=== PATIENT | female | born 1960 | race Caucasian/White ===

== ENCOUNTER 2020-03-21 08:54 | Outpatient (REF) | payer MEDICAID, SELFPAY | END 2020-03-21 08:55 | disposition home or self-care (01) | LOC: HO.LAB 08:54 | PROVIDERS: Visit Provider Internal Medicine | DX: Z20.828 Contact with and (suspected) exposure to other viral communicable diseases (principal) | CPT/HCPCS: U0003 ==

== ENCOUNTER 2020-11-18 08:46 | Outpatient (REF) | payer MEDICAID, SELFPAY ==
--- NOTE | ~2020-11-18 | MM_ITS ---
EXAMINATION: MM SCREENING DIGITAL BREAST TOMOSYNTHESIS, BILATERAL CLINICAL INFORMATION: Screening. Asymptomatic. The lifetime risk of breast cancer based on the Tyrer-Cuzick Model is 12.3%. COMPARISON: Mammography: November 16, 2018 and studies dating back to September 02, 2011 TECHNIQUE: Digital breast tomosynthesis is performed in both the craniocaudal and mediolateral oblique views along with computer-aided detection (CAD). Synthesized 2D images are generated from the tomosynthesis. FINDINGS: The breasts are extremely dense, which lowers the sensitivity of mammography (ACR BI-RADS breast composition Category d). There are no significant masses, abnormal calcifications, or other abnormalities. MM/MM tomosynthesis screening BI IMPRESSION: There are no significant changes from prior study. ASSESSMENT: BI-RADS 1: Negative RECOMMENDATION: Routine annual mammography screening. This patient's information was entered into a reminder system with a target due date for their next mammogram.
== END 2020-11-18 08:47 | disposition home or self-care (01) ==
LOC: HO.MAMMO 08:46
PROVIDERS: Visit Provider General Practice
DX: Z12.31 Encounter for screening mammogram for malignant neoplasm of breast (principal)
CPT/HCPCS: 77063; 77067

== ENCOUNTER 2021-12-01 09:44 | Outpatient (REF) | payer MEDICAID, SELFPAY ==
--- NOTE | ~2021-12-01 | MM_ITS ---
EXAMINATION: MM SCREENING DIGITAL BREAST TOMOSYNTHESIS, BILATERAL CLINICAL INFORMATION: Screening. Asymptomatic. Family history breast cancer, sister. The lifetime risk of breast cancer based on the Tyrer-Cuzick Model is 12%. COMPARISON: Mammography: 11/18/2020, 11/16/2018, 10/12/2017 TECHNIQUE: Digital breast tomosynthesis is performed in both the craniocaudal and mediolateral oblique views along with computer-aided detection (CAD). Synthesized 2D images are generated from the tomosynthesis. FINDINGS: The breasts are heterogeneously dense, which may obscure small masses (ACR BI-RADS breast composition Category c). There are no significant masses, abnormal calcifications, or other abnormalities. Parenchymal pattern is similar to prior studies. No developing density or architectural abnormality. The axilla and skin contours are unremarkable. MM/MM tomosynthesis screening BI IMPRESSION: No significant changes from prior exams. ASSESSMENT: BI-RADS 1: Negative RECOMMENDATION: Routine annual mammography screening. This patient's information was entered into a reminder system with a target due date for their next mammogram.
== END 2021-12-01 09:45 | disposition home or self-care (01) ==
LOC: HO.MAMMO 09:44
PROVIDERS: Visit Provider General Practice
DX: Z12.31 Encounter for screening mammogram for malignant neoplasm of breast (principal)
CPT/HCPCS: 77063; 77067

== ENCOUNTER 2022-03-09 07:19 | Emergency (ER) | payer MEDICAID, SELFPAY ==
--- NOTE | ~2022-03-09 | XR_ITS ---
EXAMINATION: XR CHEST CLINICAL INFORMATION: Vomiting, nausea, chest pain. Syncope. COMPARISON: 04/25/2018 TECHNIQUE: Frontal view of the chest was obtained. FINDINGS: Cardiac leads overlie the chest. The lungs are well expanded. There is no focal consolidation, edema, or effusion. No pneumothorax. The cardiomediastinal silhouette is within normal limits. No acute osseous abnormality. XR/XR chest 1V IMPRESSION: No acute pulmonary disease.
--- NOTE | 2022-03-09 07:50 | ECG_ITS ---
Test Reason : syncope Blood Pressure : / mmHG Vent. Rate : 062 BPM Atrial Rate : 062 BPM P-R Int : 152 ms QRS Dur : 086 ms QT Int : 408 ms P-R-T Axes : 033 -11 -05 degrees QTc Int : 414 ms Normal sinus rhythm Minimal voltage criteria for LVH, may be normal variant ( R in aVL ) T wave abnormality, consider anterior ischemia Abnormal ECG When compared with ECG of 06-APR-2018 11:05, No significant change was found Referred By: Edgar Somers Electronically Signed By:YASHIRA REZA MD
--- NOTE | 2022-03-09 07:53 | ED.NAVMDI ---
HPI - Nausea/Vomiting/Diarrhea General Chief complaint: Nausea/Vomiting/Diarrhea Stated complaint: vomiting Time Seen by Provider: 03/09/22 07:28 Source: patient Mode of arrival: ambulatory Limitations: language barrier (Portuguese speaking only, electronic video games servicer used) History of Present Illness HPI Narrative: 61-year-old female who presents emergency department for evaluation of nausea, vomiting, diarrhea and weakness. The patient states she has had nausea and vomiting for approximately 1 week. She states she vomits 2-3 times per day. She denies any blood in the emesis. She states that she has had very little food and fluid intake secondary to her nausea and vomiting. She states that over the last 2 days she has developed diarrhea. She states she has had 2-3 watery stools per day with no blood in the stools. She was feeling very weak, lightheaded and dizzy. While she was in the waiting room she had a syncopal episode. She was brought back to a stretcher and evaluated. The patient got off the stretcher to try to give a urine sample and had a syncopal episode your in the emergency department while she was being assisted to the bathroom. She was lying on the floor and was diaphoretic, she was minimally responsive, this lasted for approximately 1 minute. She then woke up in we lifted her back onto the stretcher. She denied fever, chills, rhinorrhea, sore throat, cough, chest pain, shortness of breath or dyspnea on exertion. She denied abdominal pain, myalgias arthralgias. MD elicited complaint: nausea, vomiting and diarrhea Onset (ago): week(s) (1) Description of vomiting: watery Description of diarrhea: watery Associated nausea: Yes Associated abdominal pain: No Location of pain: none Related Data Allergies Allergy/AdvReac Type Severity Reaction Status Date / Time No Known Allergies Allergy Verified 03/09/22 07:58 Review of Systems Review of Systems: Yes all other systems are reviewed and are negative Gastrointestinal: Gastrointestinal: Reports nausea PMFSH Past Medical History PMFSH Narrative: Past medical history: Diabetes mellitus, hypertension, hyperlipidemia. Patient states she has received 2 Pfizer COVID-19 vaccinations but did not receive her booster shot. Social history: She denies tobacco use, alcohol use and drug use. Social History Social History Advance Directives: No Physical Exam Vital Signs: Vital Signs: Last Vital Signs Temp 98.5 F 03/09/22 07:59 Pulse 65 03/09/22 10:51 Resp 18 03/09/22 10:51 BP 145/66 H 03/09/22 10:51 Pulse Ox 100 03/09/22 10:51 O2 Del Method 03/09/22 10:51 BMI result Body Mass Index 32.3 Const: General: cooperative and no acute distress Orientation/consciousness: oriented to person and oriented to place Limitations: no limitations HEENT: Head: Yes normal to inspection, Yes normocephalic and Yes atraumatic Ears: external ears normal General nose exam: Normal external nose present Face and sinus: Yes normal facial exam Mouth: Normal oral and palatal mucosa present Throat: Yes posterior oropharynx normal Eyes: General: appearance normal, both eyes and all related structures Pupils: Equal, round and reactive pupils present Neck: Neck: Yes normal visual inspection, Yes no lymphadenopathy, Yes trachea midline and Yes supple Chest: Chest palpation & inspection: normal inspection of the chest and normal palpation of entire chest wall Resp: Effort & Inspection: normal respiratory effort and able to speak in complete sentences Auscultation: clear to auscultation bilaterally Cardio: Rate: regular rate Rhythm: regular rhythm Heart sounds: S1 normal heart sound present, S2 normal heart sound present and no murmurs GI: Inspection: Yes normal to inspection Palpation (GI): Soft to palpation, nontender and no guarding Auscultation: normal bowel sounds : General: Yes no CVA tenderness Back/Spine/Pelvis: Back: no CVA tenderness Skin: General skin exam: no rashes or lesions noted Neuro: General: oriented to person and oriented to place Cranial nerves: Yes CN's II-XII intact bilaterally and Yes Equal, round and reactive pupils present Cognition (Neuro): normal cognition Motor exam (neuro): 5/5 motor strength present throughout Extrem: General: Yes normal to inspection Psych: Appearance: grossly normal Speech and movement: Normal speech and movement present Affect: normal affect Attitude: cooperative Thought process: Normal thought process present Thought content: Normal thought content present Course Course Course Narrative: 61-year-old female who presents emergency department for evaluation of 1 week of nausea and vomiting and 2 days of diarrhea. Patient has had very little food and fluid to drink over the last week and she is feeling weak, lightheaded and dizzy. Patient had a syncopal episode in the emergency department waiting area and a 2nd syncopal episode here in emergency department when she tried to get off the stretcher to go to the bathroom. The patient's physical examination was unremarkable she has no abdominal tenderness. Patient most likely has a viral illness. I did order a CBC, CMP, lactate, lipase, PT/INR, PTT, COVID-19, influenza. If we obtain a stool sample also check her for C difficile infection. Patient was ordered to get Zofran 4 mg IV and normal saline IV x1 L. 1258: Laboratory evaluation: CBC was normal. Glucose elevated 178. Troponin below detectable limits. COVID-19 and influenza negative. Lipase elevated 135. Radiology evaluation: Chest x-ray no acute disease The patient's syncopal episode was most likely vagal vagal secondary to being dehydrated/volume depleted caused by her vomiting, diarrhea and lack of oral intake. The patient is feeling significantly better. She was able to drink fluid any eat. The patient will be discharged home. She most likely has a viral infection causing her symptoms I did discuss this with her. She was given printed and verbal instructions and discharged home. She was prescribed Zofran ODT. MDM - Nausea/Vomiting/Diarrhea Lab Data Attestation: I reviewed the patient's lab results. Result diagrams: 03/09/22 10:05 03/09/22 10:05 Labs: Lab Results 03/09/22 03/09/22 03/09/22 Range/Units 10:05 10:05 10:05 WBC 10.7 (4.8-10.8) X10*3/uL RBC 4.22 (4.20-5.50) X10*6/uL Hgb 12.4 (12.0-16.0) g/dl Hct 38.1 (37.0-47.0) % MCV 90.3 (80.0-98.0) fL MCH 29.4 (27.0-33.0) pg MCHC 32.5 (31.0-35.0) g/dl RDW 12.7 (11.0-16.0) % Plt Count 268 (160-400) X10*3/uL MPV 10.8 (9.4-12.3) fL Immature Gran % (Auto) 0.3 (0.0-0.4) % Neut % (Auto) 72.5 (45-73) % Lymph % (Auto) 21.2 (20-40) % Isabela % (Auto) 5.1 (2-11) % Eos % (Auto) 0.6 (0-4) % Baso % (Auto) 0.3 (0-2) % Lymph # (Auto) 2.3 (1.2-4.9) X10*3/uL Isabela # (Auto) 0.6 (0.1-1.2) X10*3/uL Eos # (Auto) 0.1 (0.0-0.4) X10*3/uL Baso # (Auto) 0.0 (0.0-0.2) X10*3/uL Abs Immat Gran (auto) 0.03 (0.00-0.03) X10*3/uL Absolute Neuts (auto) 7.8 (2.0-8.3) x10*3/uL Absolute Nucleated RBC 0.000 (0.0-0.012) X10*3/uL Nucleated RBC % (auto) 0.0 (0.0-0.2) /100WBC PT (10.0-13.1) SEC INR (0.9-1.1) APTT (26.0-36.4) SEC Sodium 142 (135-145) mmol/L Potassium 4.2 (3.3-5.1) mmol/L Chloride 105 (96-108) mmol/L Carbon Dioxide 25 (22-29) mmol/L Anion Gap 16 (12-20) BUN 9 (9-16) mg/dL Creatinine 0.71 (0.5-1.4) mg/dL Estim Creat Clear Calc 81.6 Estimated GFR > 60 Random Glucose 178 H (60-115) mg/dL Lactic Acid 1.5 (0.5-2.0) mmol/L Calcium 9.3 (8.4-10.2) mg/dL Total Bilirubin 0.3 (0.0-1.0) mg/dL AST 18 (5-31) U/L ALT 18 (0-31) U/L Alkaline Phosphatase 102 (39-117) U/L Troponin I High Sens (<3.5-17.0) ng/L Total Protein 7.1 (6.5-8.0) g/dL Albumin 4.2 (3.5-5.0) g/dL Lipase 135 H (8-78) U/L Urine Color Urine Appearance Urine pH (5.0-9.0) Ur Specific [place] (1.005-1.025) Urine Protein (Neg-Trace) mg/dL Urine Glucose (UA) (Negative) mg/dL Urine Ketones (Negative) mg/dL Urine Blood (Negative) Urine Nitrite (Negative) Ur Leukocyte Esterase (Negative) COVID-19 ([facility]) (Negative) COVID-19 Clin Com Influenza Type A (CASE) (Negative) Influenza Type B (CASE) (Negative) Influenza A & B Note 03/09/22 03/09/22 03/09/22 Range/Units 10:05 10:05 10:05 WBC (4.8-10.8) X10*3/uL RBC (4.20-5.50) X10*6/uL Hgb (12.0-16.0) g/dl Hct (37.0-47.0) % MCV (80.0-98.0) fL MCH (27.0-33.0) pg MCHC (31.0-35.0) g/dl RDW (11.0-16.0) % Plt Count (160-400) X10*3/uL MPV (9.4-12.3) fL Immature Gran % (Auto) (0.0-0.4) % Neut % (Auto) (45-73) % Lymph % (Auto) (20-40) % Isabela % (Auto) (2-11) % Eos % (Auto) (0-4) % Baso % (Auto) (0-2) % Lymph # (Auto) (1.2-4.9) X10*3/uL Isabela # (Auto) (0.1-1.2) X10*3/uL Eos # (Auto) (0.0-0.4) X10*3/uL Baso # (Auto) (0.0-0.2) X10*3/uL Abs Immat Gran (auto) (0.00-0.03) X10*3/uL Absolute Neuts (auto) (2.0-8.3) x10*3/uL Absolute Nucleated RBC (0.0-0.012) X10*3/uL Nucleated RBC % (auto) (0.0-0.2) /100WBC PT 12.3 (10.0-13.1) SEC INR 1.1 (0.9-1.1) APTT 37.9 H (26.0-36.4) SEC Sodium (135-145) mmol/L Potassium (3.3-5.1) mmol/L Chloride (96-108) mmol/L Carbon Dioxide (22-29) mmol/L Anion Gap (12-20) BUN (9-16) mg/dL Creatinine (0.5-1.4) mg/dL Estim Creat Clear Calc Estimated GFR Random Glucose (60-115) mg/dL Lactic Acid (0.5-2.0) mmol/L Calcium (8.4-10.2) mg/dL Total Bilirubin (0.0-1.0) mg/dL AST (5-31) U/L ALT (0-31) U/L Alkaline Phosphatase (39-117) U/L Troponin I High Sens (<3.5-17.0) ng/L Total Protein (6.5-8.0) g/dL Albumin (3.5-5.0) g/dL Lipase (8-78) U/L Urine Color Urine Appearance Urine pH (5.0-9.0) Ur Specific [place] (1.005-1.025) Urine Protein (Neg-Trace) mg/dL Urine Glucose (UA) (Negative) mg/dL Urine Ketones (Negative) mg/dL Urine Blood (Negative) Urine Nitrite (Negative) Ur Leukocyte Esterase (Negative) COVID-19 ([facility]ASIA) Negative (Negative) COVID-19 Clin Com See Note Influenza Type A (CASE) Negative (Negative) Influenza Type B (CASE) Negative (Negative) Influenza A & B Note See Note 03/09/22 03/09/22 Range/Units 10:05 11:59 WBC (4.8-10.8) X10*3/uL RBC (4.20-5.50) X10*6/uL Hgb (12.0-16.0) g/dl Hct (37.0-47.0) % MCV (80.0-98.0) fL MCH (27.0-33.0) pg MCHC (31.0-35.0) g/dl RDW (11.0-16.0) % Plt Count (160-400) X10*3/uL MPV (9.4-12.3) fL Immature Gran % (Auto) (0.0-0.4) % Neut % (Auto) (45-73) % Lymph % (Auto) (20-40) % Isabela % (Auto) (2-11) % Eos % (Auto) (0-4) % Baso % (Auto) (0-2) % Lymph # (Auto) (1.2-4.9) X10*3/uL Isabela # (Auto) (0.1-1.2) X10*3/uL Eos # (Auto) (0.0-0.4) X10*3/uL Baso # (Auto) (0.0-0.2) X10*3/uL Abs Immat Gran (auto) (0.00-0.03) X10*3/uL Absolute Neuts (auto) (2.0-8.3) x10*3/uL Absolute Nucleated RBC (0.0-0.012) X10*3/uL Nucleated RBC % (auto) (0.0-0.2) /100WBC PT (10.0-13.1) SEC INR (0.9-1.1) APTT (26.0-36.4) SEC Sodium (135-145) mmol/L Potassium (3.3-5.1) mmol/L Chloride (96-108) mmol/L Carbon Dioxide (22-29) mmol/L Anion Gap (12-20) BUN (9-16) mg/dL Creatinine (0.5-1.4) mg/dL Estim Creat Clear Calc Estimated GFR Random Glucose (60-115) mg/dL Lactic Acid (0.5-2.0) mmol/L Calcium (8.4-10.2) mg/dL Total Bilirubin (0.0-1.0) mg/dL AST (5-31) U/L ALT (0-31) U/L Alkaline Phosphatase (39-117) U/L Troponin I High Sens < 3.5 (<3.5-17.0) ng/L Total Protein (6.5-8.0) g/dL Albumin (3.5-5.0) g/dL Lipase (8-78) U/L Urine Color Yellow Urine Appearance Clear Urine pH 8.0 (5.0-9.0) Ur Specific [place] 1.010 (1.005-1.025) Urine Protein Negative (Neg-Trace) mg/dL Urine Glucose (UA) Negative (Negative) mg/dL Urine Ketones Negative (Negative) mg/dL Urine Blood Negative (Negative) Urine Nitrite Negative (Negative) Ur Leukocyte Esterase Negative (Negative) COVID-19 ([facility]ASIA) (Negative) COVID-19 Clin Com Influenza Type A (CASE) (Negative) Influenza Type B (CASE) (Negative) Influenza A & B Note ECG Data Attestation: I personally reviewed and interpreted this ECG as follows: Interpretation: 0823: Normal sinus rhythm rate of 62, normal [place] interval, QRS duration QTC interval, inverted T-wave in lead 3, the 1 through V3, no ST segment elevation, no ST segment depression, no PACs, no PVCs, no Q-waves. There is no old EKG for comparison. Discharge Plan Discharge Clinical Impression: Viral syndrome, Syncope, vasovagal, Vomiting, Diarrhea
[2022-03-09 07:59] VITALS: BP 163/77; PULSE 71; RESP 16; TEMP 36.9; O2SAT 100; BMI 32.3
[2022-03-09] MEDS: 0.9 % Sodium Chloride 1,000 ML 999 ML IV (09:10)
[2022-03-09] MEDS: ondansetron HCL 4 MG/2 ML VIAL IVPUSH (09:15)
--- NOTE | 2022-03-09 09:22 | PC.NURSE ---
at approximatly 7:55am patient requesting to go to the bathroom to void, at bedside and stated she was able to ambulate without issues. I attempted to assist the patient. Patient was sat on the edge of the bed and dangled prior to getting up. As soon as we stood, she became weak, knees buckled and we lowered her to the ground with a pillow to support her head. No injury, present. Patient was lifted to the stretcher by multiple staff members, placed on a registered nurse cardiac, subsequently she had an IV placed with fluid bolus in progress. Interpretor used for assessment. Patient denies abd pain, has some nausea but only a slight amount, she is not vomiting at this time, I did medicate her with zofran 4mg IVP as ordered with good effect. Awaiting provider brittany.
[2022-03-09 10:14] LABS: MANUAL DIFF FLAG NO
[2022-03-09 10:15] LABS: Basophils Percent Auto 0.3 % (0-2); Eosinophils Absolute Auto 0.1 X10*3/uL (0.0-0.4); Eosinophils Percent Auto 0.6 % (0-4); Hematocrit 38.1 % (37.0-47.0); Hemoglobin 12.4 g/dl (12.0-16.0); Imm Gran Abs Auto 0.03 X10*3/uL (0.00-0.03); Imm Gran Pct Auto 0.3 % (0.0-0.4); Lymphocytes Absolute Auto 2.3 X10*3/uL (1.2-4.9); Lymphocytes Percent Auto 21.2 % (20-40); Mean Corpuscular HGB Conc 32.5 g/dl (31.0-35.0); Mean Corpuscular Hemoglobin 29.4 pg (27.0-33.0); Mean Corpuscular Volume 90.3 fL (80.0-98.0); Mean Platelet Volume 10.8 fL (9.4-12.3); Monocytes Absolute Auto 0.6 X10*3/uL (0.1-1.2); Monocytes Percent Auto 5.1 % (2-11); Neutrophils Absolute Auto 7.8 x10*3/uL (2.0-8.3); Neutrophils Percent Auto 72.5 % (45-73); Platelet Count 268 X10*3/uL (160-400); Red Blood Count 4.22 X10*6/uL (4.20-5.50); Red Cell Distribution Width 12.7 % (11.0-16.0); White Blood Count 10.7 X10*3/uL (4.8-10.8)
[2022-03-09 10:20] LABS: INTERNATIONAL NORM RATIO 1.1 (0.9-1.1); Prothrombin Time 12.3 SEC (10.0-13.1)
[2022-03-09 10:22] LABS: Partial Thromboplastin Time 37.9 SEC (26.0-36.4)
[2022-03-09 10:24] LABS: Lactic Acid 1.5 mmol/L (0.5-2.0)
[2022-03-09 10:32] LABS: Alanine Aminotransferase 18 U/L (0-31); Albumin Level 4.2 g/dL (3.5-5.0); Alkaline Phosphatase 102 U/L (39-117); Anion Gap 16 (12-20); Aspartate Amino Transferase 18 U/L (5-31); Bilirubin Total 0.3 mg/dL (0.0-1.0); Blood Urea Nitrogen 9 mg/dL (9-16); Calcium 9.3 mg/dL (8.4-10.2); Carbon Dioxide 25 mmol/L (22-29); Chloride 105 mmol/L (96-108); Creatinine Clr Calc Pharmacy 81.6; Estimated Glomerular Filt Rate > 60; Glucose Random 178 mg/dL (60-115); Lipase 135 U/L (8-78); Potassium 4.2 mmol/L (3.3-5.1); Sodium 142 mmol/L (135-145); Total Protein 7.1 g/dL (6.5-8.0)
[2022-03-09 10:34] LABS: COVID-19 Test Negative (Negative); IDNOW Serial# 16C4AD1C; IDNOW Serial# 9DB6401D; Influenza A Negative (Negative); Influenza B2 Negative (Negative); Troponin-I High Sensitivity < 3.5 ng/L (<3.5-17.0)
[2022-03-09 10:51] VITALS: BP 145/66; PULSE 65; RESP 18; O2SAT 100
[2022-03-09 12:25] LABS: Appearance Urine Clear; Color Urine Yellow; Glucose Urine UA Negative (Negative); Leukocyte Esterase Urine Negative (Negative); Nitrite Urine Negative (Negative); Urine Blood Negative (Negative); Urine Ketones Negative (Negative); Urine Protein Negative (Neg-Trace)
--- NOTE | 2022-03-09 13:09 | PC.NURSE ---
pt able to tolerate a few packages of salines, as well as a can of gingerale. She ambulated without difficulty around the department, no complains of dizziness, gait was steady. pt sts nausea has resolved, notified
== END 2022-03-09 13:50 | disposition home or self-care (01) ==
PROVIDERS: Emergency Provider Emergency Medicine Emergency Medical Services; PCP General Practice
DX: B34.9 Viral infection, unspecified (principal); R55 Syncope and collapse; R11.2 Nausea with vomiting, unspecified; R19.7 Diarrhea, unspecified; Z20.822 Contact with and (suspected) exposure to COVID-19; E11.9 Type 2 diabetes mellitus without complications; I10 Essential (primary) hypertension; E78.5 Hyperlipidemia, unspecified
CPT/HCPCS: 36415; 71045; 80053; 81003; 83605; 83690; 84484; 85025; 85610; 85730; 87502; 87635; 93005; 96361; 96374; 99284; J2405

== ENCOUNTER 2022-03-20 08:18 | Emergency (ER) | payer MEDICAID, SELFPAY ==
--- NOTE | ~2022-03-20 | CT_ITS ---
EXAMINATION: CT ABDOMEN AND PELVIS WITHOUT CONTRAST CLINICAL INFORMATION: Abdominal pain COMPARISON: CT 06/30/2010 TECHNIQUE: Multidetector volumetric imaging was performed from the superior aspect of the liver through the pubic symphysis. Sagittal and coronal reformatted images were obtained on the technologist's workstation. This CT examination was performed using dose optimization techniques as appropriate, variously including the following: *Automated exposure control *Adjustment of mA and/or kV according to patient size (this includes techniques or standardized protocols for targeted exams where dose is matched to indication/reason for exam; i.e. extremities or head) *Use of iterative reconstruction technique DLP: 651 mGy-cm FINDINGS: LUNG BASES: The visualized lung bases are unremarkable. LIVER, GALLBLADDER, AND BILIARY TREE: 2 small hypodense lesions in the left lobe, too small to characterize, relatively stable from 06/30/2010, suggesting a nonaggressive etiology. No biliary duct dilatation. The gallbladder is unremarkable with no evidence of radiopaque gallstones, gallbladder wall thickening, or obvious pericholecystic inflammatory changes. PANCREAS: Mild fatty change in the pancreas. No acute inflammatory changes. SPLEEN: Unremarkable. ADRENAL GLANDS: Unremarkable. KIDNEYS AND URETERS: 3 cm right renal cyst, slightly larger from the prior study. Punctate nonobstructing left renal upper pole calculus. No ureteral calculi. No hydronephrosis. . BLADDER: Unremarkable. GASTROINTESTINAL TRACT: The small and large bowel are unremarkable. Nonobstructive bowel gas pattern. Moderate volume stool in the large colon. The appendix is unremarkable. No significant free fluid. ABDOMINAL WALL: No significant hernia is appreciated. LYMPH NODES: No adenopathy seen. VASCULAR: Normal caliber aorta. PELVIC VISCERA: Limited evaluation of the uterus. Uterus is somewhat bulky. No adnexal masses seen. OSSEOUS STRUCTURES: Degenerative changes in the spine. No acute findings seen. CT/CT abdomen pelvis wo IV con IMPRESSION: -Stable 2 small hypodense liver lesions, too small to characterize, probably reflecting cysts. -Right renal 3 cm cyst, slightly larger from previous. -Somewhat bulky appearance of the uterus. This can be further evaluated with nonemergent ultrasound. -No acute intra-abdominal process is otherwise identified.. Fleischner guidelines were followed.
[2022-03-20 08:25] VITALS: BP 157/65; PULSE 75; RESP 14; TEMP 36.8; O2SAT 100
--- NOTE | 2022-03-20 08:26 | ECG_ITS ---
Test Reason : CHEST PAIN Blood Pressure : / mmHG Vent. Rate : 067 BPM Atrial Rate : 067 BPM P-R Int : 140 ms QRS Dur : 084 ms QT Int : 410 ms P-R-T Axes : 054 -05 012 degrees QTc Int : 433 ms Normal sinus rhythm with Sinus Arrhythmia T wave abnormality, consider anterior ischemia Abnormal ECG When compared with ECG of 09-MAR-2022 08:23, No significant change was found Referred By: Ian Vaughn Electronically Signed By:YASHIRA REZA MD
--- NOTE | 2022-03-20 08:29 | ED.NAVMDI ---
HPI - Nausea/Vomiting/Diarrhea General Chief complaint: General Medical Stated complaint: Nausea/ vomiting weakness Time Seen by Provider: 03/20/22 08:19 Source: patient and EMS Mode of arrival: EMS Limitations: no limitations History of Present Illness HPI Narrative: This is 62 years old female presented to the emergency department via ambulance with a chief complaint of nausea vomiting since yesterday. She was evaluated on March 09 in this emergency department with diarrhea with negative workup. She has history of diabetes, asthma, depression MD elicited complaint: nausea, vomiting and diarrhea Onset (ago): day(s) (1) Description of vomiting: watery Associated nausea: Yes Associated abdominal pain: No Exacerbating factors: none Relieving factors: none Related Data Previous Rx's Medication Instructions Recorded ondansetron 4 mg disintegrating 4 mg PO Q6-8H PRN nausea and 03/09/22 tablet vomiting #14 tabs Allergies Allergy/AdvReac Type Severity Reaction Status Date / Time No Known Allergies Allergy Verified 03/09/22 07:58 Review of Systems Review of Systems: Yes all other systems are reviewed and are negative Constitutional: Constitutional: Reports no additional constitutional complaints Cardiovascular: Cardiovascular: Reports no additional cardiovascular complaints Gastrointestinal: Gastrointestinal: Reports nausea and Reports vomiting Neurologic: Reports system reviewed and no additional complaints, except as documented [facility] Past Medical History [facility] Narrative: diabetes/asthma/depression Social History Social History Alcohol intake: former Patient Tobacco Use Status: Never used Tobacco Advance Directives: No Advance Directives Information Provided: Yes Patient : No Physical Exam Vital Signs: Vital Signs: Last Vital Signs Temp 97.8 F 03/20/22 08:36 Pulse 66 03/20/22 08:36 Resp 16 03/20/22 08:36 BP 157/65 H 03/20/22 08:36 Pulse Ox 100 03/20/22 08:36 O2 Del Method 03/20/22 08:36 BMI result Body Mass Index 35.2 Const: General: cooperative, well developed and anxious Orientation/consciousness: patient oriented x3 HEENT: Head: Yes normal to inspection General nose exam: Normal external nose present Mouth: Normal oral and palatal mucosa present Throat: Yes posterior oropharynx normal Neck: Neck: Yes normal visual inspection and Yes full ROM Chest: Chest palpation & inspection: normal inspection of the chest Resp: Effort & Inspection: normal respiratory effort Auscultation: clear to auscultation bilaterally Cardio: Jugular venous distension: no JVD Rate: regular rate Rhythm: regular rhythm GI: Inspection: Yes normal to inspection Palpation (GI): Soft to palpation, not firm, nontender and no guarding Auscultation: normal bowel sounds Skin: General skin exam: no rashes or lesions noted and elasticity normal Lesions: no lesions Rashes: no rashes Neuro: General: patient oriented x3 Course Reevaluation(s) Reevaluation #1: feels better ,asymptomatic,ct scan negative,will d/c home Time: 11:26 [facility] - Nausea/Vomiting/Diarrhea Medical Records Medical records narrative: 62 years old the female diabetic presented with nausea vomiting since yesterday, will insert IV will give IV fluid antiemetic, rear valve after Lab Data Result diagrams: 03/20/22 09:05 03/20/22 09:05 Labs: Lab Results 03/20/22 03/20/22 03/20/22 Range/Units 09:05 09:05 09:05 WBC 10.3 (4.8-10.8) X10*3/uL RBC 4.48 (4.20-5.50) X10*6/uL Hgb 13.1 (12.0-16.0) g/dl Hct 39.9 (37.0-47.0) % MCV 89.1 (80.0-98.0) fL MCH 29.2 (27.0-33.0) pg MCHC 32.8 (31.0-35.0) g/dl RDW 12.7 (11.0-16.0) % Plt Count 305 (160-400) X10*3/uL MPV 11.1 (9.4-12.3) fL Immature Gran % (Auto) 0.3 (0.0-0.4) % Neut % (Auto) 75.5 H (45-73) % Lymph % (Auto) 17.8 L (20-40) % [place] % (Auto) 4.9 (2-11) % Eos % (Auto) 1.1 (0-4) % Baso % (Auto) 0.4 (0-2) % Lymph # (Auto) 1.8 (1.2-4.9) X10*3/uL [place] # (Auto) 0.5 (0.1-1.2) X10*3/uL Eos # (Auto) 0.1 (0.0-0.4) X10*3/uL Baso # (Auto) 0.0 (0.0-0.2) X10*3/uL Abs Immat Gran (auto) 0.03 (0.00-0.03) X10*3/uL Absolute Neuts (auto) 7.8 (2.0-8.3) x10*3/uL Absolute Nucleated RBC 0.000 (0.0-0.012) X10*3/uL Nucleated RBC % (auto) 0.0 (0.0-0.2) /100WBC Sodium 140 (135-145) mmol/L Potassium 4.4 (3.3-5.1) mmol/L Chloride 100 (96-108) mmol/L Carbon Dioxide 27 (22-29) mmol/L Anion Gap 17 (12-20) BUN 8 L (9-16) mg/dL Creatinine 0.70 (0.5-1.4) mg/dL Estim Creat Clear Calc 78.8 Estimated GFR > 60 Random Glucose 210 H (60-115) mg/dL Calcium 10.1 D (8.4-10.2) mg/dL Total Bilirubin 0.3 (0.0-1.0) mg/dL AST 32 H D (5-31) U/L ALT 26 (0-31) U/L Alkaline Phosphatase 103 (39-117) U/L Troponin I High Sens < 3.5 (<3.5-17.0) ng/L Total Protein 7.9 (6.5-8.0) g/dL Albumin 4.5 (3.5-5.0) g/dL Lipase 211 H (8-78) U/L Urine Color Urine Appearance Urine pH (5.0-9.0) Ur Specific [place] (1.005-1.025) Urine Protein (Neg-Trace) mg/dL Urine Glucose (UA) (Negative) mg/dL Urine Ketones (Negative) mg/dL Urine Blood (Negative) Urine Nitrite (Negative) Ur Leukocyte Esterase (Negative) Urine RBC (0-2) /HPF Urine WBC (0-5) /HPF Urine WBC Clumps Ur Squamous Epith Cells (0-2) /HPF Ur Transition Epith Cell Ur Renal Epithelial Cell Calcium Oxalate Crystal Leucine Crystals Cystine Crystals Tyrosine Crystals Other Crystals Urine Bacteria (None Seen) Urine Parasites Bilirubin Casts Epithelial Casts Fatty Casts Hyaline Casts (0-2) /LPF Granular Casts Waxy Casts Broad Casts RBC Casts WBC Casts Other Casts Urine Trichomonas Urine Yeast Stool Leukocytes, Qual (NEGATIVE) 03/20/22 03/20/22 03/20/22 Range/Units 09:05 09:05 09:05 WBC (4.8-10.8) X10*3/uL RBC (4.20-5.50) X10*6/uL Hgb (12.0-16.0) g/dl Hct (37.0-47.0) % MCV (80.0-98.0) fL MCH (27.0-33.0) pg MCHC (31.0-35.0) g/dl RDW (11.0-16.0) % Plt Count (160-400) X10*3/uL MPV (9.4-12.3) fL Immature Gran % (Auto) (0.0-0.4) % Neut % (Auto) (45-73) % Lymph % (Auto) (20-40) % [place] % (Auto) (2-11) % Eos % (Auto) (0-4) % Baso % (Auto) (0-2) % Lymph # (Auto) (1.2-4.9) X10*3/uL [place] # (Auto) (0.1-1.2) X10*3/uL Eos # (Auto) (0.0-0.4) X10*3/uL Baso # (Auto) (0.0-0.2) X10*3/uL Abs Immat Gran (auto) (0.00-0.03) X10*3/uL Absolute Neuts (auto) (2.0-8.3) x10*3/uL Absolute Nucleated RBC (0.0-0.012) X10*3/uL Nucleated RBC % (auto) (0.0-0.2) /100WBC Sodium (135-145) mmol/L Potassium (3.3-5.1) mmol/L Chloride (96-108) mmol/L Carbon Dioxide (22-29) mmol/L Anion Gap (12-20) BUN (9-16) mg/dL Creatinine (0.5-1.4) mg/dL Estim Creat Clear Calc Estimated GFR Random Glucose (60-115) mg/dL Calcium (8.4-10.2) mg/dL Total Bilirubin (0.0-1.0) mg/dL AST (5-31) U/L ALT (0-31) U/L Alkaline Phosphatase (39-117) U/L Troponin I High Sens (<3.5-17.0) ng/L Total Protein (6.5-8.0) g/dL Albumin (3.5-5.0) g/dL Lipase (8-78) U/L Urine Color Yellow Cancelled Urine Appearance Clear Cancelled Urine pH 8.0 Cancelled (5.0-9.0) Ur Specific [place] 1.010 Cancelled (1.005-1.025) Urine Protein Negative Cancelled (Neg-Trace) mg/dL Urine Glucose (UA) Negative Cancelled (Negative) mg/dL Urine Ketones Negative Cancelled (Negative) mg/dL Urine Blood Negative Cancelled (Negative) Urine Nitrite Negative Cancelled (Negative) Ur Leukocyte Esterase Moderate (2+) H Cancelled (Negative) Urine RBC 3-5 H Cancelled (0-2) /HPF Urine WBC 6-10 H Cancelled (0-5) /HPF Urine WBC Clumps EXECUTIVE PERSONAL ASSISTANT Cancelled Ur Squamous Epith Cells 6-10 Cancelled (0-2) /HPF Ur Transition Epith Cell EXECUTIVE PERSONAL ASSISTANT Cancelled Ur Renal Epithelial Cell EXECUTIVE PERSONAL ASSISTANT Cancelled Calcium Oxalate Crystal EXECUTIVE PERSONAL ASSISTANT Cancelled Leucine Crystals EXECUTIVE PERSONAL ASSISTANT Cancelled Cystine Crystals EXECUTIVE PERSONAL ASSISTANT Cancelled Tyrosine Crystals EXECUTIVE PERSONAL ASSISTANT Cancelled Other Crystals EXECUTIVE PERSONAL ASSISTANT Cancelled Urine Bacteria 2+ Cancelled (None Seen) Urine Parasites EXECUTIVE PERSONAL ASSISTANT Cancelled Bilirubin Casts EXECUTIVE PERSONAL ASSISTANT Cancelled Epithelial Casts EXECUTIVE PERSONAL ASSISTANT Cancelled Fatty Casts EXECUTIVE PERSONAL ASSISTANT Cancelled Hyaline Casts 0-2 Cancelled (0-2) /LPF Granular Casts EXECUTIVE PERSONAL ASSISTANT Cancelled Waxy Casts EXECUTIVE PERSONAL ASSISTANT Cancelled Broad Casts EXECUTIVE PERSONAL ASSISTANT Cancelled RBC Casts EXECUTIVE PERSONAL ASSISTANT Cancelled WBC Casts EXECUTIVE PERSONAL ASSISTANT Cancelled Other Casts EXECUTIVE PERSONAL ASSISTANT Cancelled Urine Trichomonas EXECUTIVE PERSONAL ASSISTANT Cancelled Urine Yeast EXECUTIVE PERSONAL ASSISTANT Cancelled Stool Leukocytes, Qual NEGATIVE (NEGATIVE) ECG Data Attestation: I personally reviewed and interpreted this ECG as follows: ECG interpretation time: :24 Pacemaker model: Normal sinus rhythm rate [address]-T changes Discharge Plan Discharge Clinical Impression: Diarrhea, Vomiting Patient Disposition: Home, Self-Care Instructions: Acute Nausea and Vomiting (ED), Acute Diarrhea (ED) Additional Instructions: Follow-up with your primary care physician a clear liquid diet today, avoid dairy product Prescriptions: No Action ondansetron 4 mg tablet,disintegrating 4 mg PO Q6-8H PRN (Reason: nausea and vomiting) Qty: 14 0RF Referrals: Physician,Unknown J [Primary Care Provider] - 2 days Interventions: ED Discharge Assessment Last Done: 03/20/22 12:39 Discharge Date/Time: 03/20/22 11:50
[2022-03-20 08:36] VITALS: BP 157/65; PULSE 66; RESP 16; TEMP 36.6; O2SAT 100; BMI 35.2
[2022-03-20] MEDS: ondansetron HCL 4 MG/2 ML VIAL IVPUSH (09:08)
[2022-03-20] MEDS: 0.9 % Sodium Chloride 1,000 ML 999 ML IVCONT (09:08)
[2022-03-20 09:10] LABS: MANUAL DIFF FLAG NO
[2022-03-20 09:11] LABS: Basophils Percent Auto 0.4 % (0-2); Eosinophils Absolute Auto 0.1 X10*3/uL (0.0-0.4); Eosinophils Percent Auto 1.1 % (0-4); Hematocrit 39.9 % (37.0-47.0); Hemoglobin 13.1 g/dl (12.0-16.0); Imm Gran Abs Auto 0.03 X10*3/uL (0.00-0.03); Imm Gran Pct Auto 0.3 % (0.0-0.4); Lymphocytes Absolute Auto 1.8 X10*3/uL (1.2-4.9); Lymphocytes Percent Auto 17.8 % (20-40); Mean Corpuscular HGB Conc 32.8 g/dl (31.0-35.0); Mean Corpuscular Hemoglobin 29.2 pg (27.0-33.0); Mean Corpuscular Volume 89.1 fL (80.0-98.0); Mean Platelet Volume 11.1 fL (9.4-12.3); Monocytes Absolute Auto 0.5 X10*3/uL (0.1-1.2); Monocytes Percent Auto 4.9 % (2-11); Neutrophils Absolute Auto 7.8 x10*3/uL (2.0-8.3); Neutrophils Percent Auto 75.5 % (45-73); Platelet Count 305 X10*3/uL (160-400); Red Blood Count 4.48 X10*6/uL (4.20-5.50); Red Cell Distribution Width 12.7 % (11.0-16.0); White Blood Count 10.3 X10*3/uL (4.8-10.8)
[2022-03-20] MEDS: Loperamide HCl 2 MG CAPSULE PO (09:12)
[2022-03-20 09:13] LABS: Appearance Urine Clear; Color Urine Yellow; Glucose Urine UA Negative (Negative); Leukocyte Esterase Urine Moderate (2+) (Negative); Nitrite Urine Negative (Negative); UMIC TRIGGER UACC YES; Urine Blood Negative (Negative); Urine Ketones Negative (Negative); Urine Protein Negative (Neg-Trace)
[2022-03-20 09:17] LABS: Bacteria Urine 2+ (None Seen); Hyaline Casts Urine 0-2 /LPF (0-2); UACC Culture Trigger YES
--- NOTE | 2022-03-20 09:33 | PC.NURSE ---
Patient primarily Setswana speaking only . Assessed with use of analytic programmer . Hamilton heart rate regular at 66 beats per minutes . lungs clear . skin pink warm and dry . abdomen soft . not tender . positive bowel sounds in all four quadrants . Iv placed in left hand . Bowel sample . Urine sample and blood samples sent to labs . patient medicated as ordered EKG obtained . patient put on monitor . patient aware of plan of care .
[2022-03-20 09:36] LABS: Alanine Aminotransferase 26 U/L (0-31); Albumin Level 4.5 g/dL (3.5-5.0); Alkaline Phosphatase 103 U/L (39-117); Anion Gap 17 (12-20); Aspartate Amino Transferase 32 U/L (5-31); Bilirubin Total 0.3 mg/dL (0.0-1.0); Blood Urea Nitrogen 8 mg/dL (9-16); Calcium 10.1 mg/dL (8.4-10.2); Carbon Dioxide 27 mmol/L (22-29); Chloride 100 mmol/L (96-108); Creatinine Clr Calc Pharmacy 78.8; Estimated Glomerular Filt Rate > 60; Glucose Random 210 mg/dL (60-115); Lipase 211 U/L (8-78); Potassium 4.4 mmol/L (3.3-5.1); Sodium 140 mmol/L (135-145); Total Protein 7.9 g/dL (6.5-8.0)
[2022-03-20 10:07] LABS: Leukocytes Stool Qualitative NEGATIVE (NEGATIVE)
[2022-03-20 10:28] LABS: Troponin-I High Sensitivity < 3.5 ng/L (<3.5-17.0)
== END 2022-03-20 11:50 | disposition home or self-care (01) ==
PROVIDERS: Emergency Provider Emergency Medicine
DX: R11.2 Nausea with vomiting, unspecified (principal); R19.7 Diarrhea, unspecified; E11.9 Type 2 diabetes mellitus without complications
CPT/HCPCS: 36415; 74176; 80053; 81001; 83690; 84484; 85025; 87086; 87507; 89055; 93005; 96361; 96374; 99284; J2405

== ENCOUNTER 2022-04-04 09:22 | Emergency (ER) | payer MEDICAID, SELFPAY ==
[2022-04-04 09:30] VITALS: BP 196/93; PULSE 74; RESP 19; TEMP 36.6; O2SAT 98; BMI 32.9
[2022-04-04 10:04] LABS: MANUAL DIFF FLAG NO
[2022-04-04 10:07] LABS: Basophils Percent Auto 0.3 % (0-2); Eosinophils Absolute Auto 0.1 X10*3/uL (0.0-0.4); Eosinophils Percent Auto 0.7 % (0-4); Hematocrit 41.5 % (37.0-47.0); Hemoglobin 13.8 g/dl (12.0-16.0); Imm Gran Abs Auto 0.04 X10*3/uL (0.00-0.03); Imm Gran Pct Auto 0.3 % (0.0-0.4); Lymphocytes Absolute Auto 1.7 X10*3/uL (1.2-4.9); Lymphocytes Percent Auto 14.7 % (20-40); Mean Corpuscular HGB Conc 33.3 g/dl (31.0-35.0); Mean Corpuscular Hemoglobin 29.8 pg (27.0-33.0); Mean Corpuscular Volume 89.6 fL (80.0-98.0); Mean Platelet Volume 10.8 fL (9.4-12.3); Monocytes Absolute Auto 0.5 X10*3/uL (0.1-1.2); Monocytes Percent Auto 3.9 % (2-11); Neutrophils Absolute Auto 9.2 x10*3/uL (2.0-8.3); Neutrophils Percent Auto 80.1 % (45-73); Platelet Count 339 X10*3/uL (160-400); Red Blood Count 4.63 X10*6/uL (4.20-5.50); Red Cell Distribution Width 12.9 % (11.0-16.0); White Blood Count 11.5 X10*3/uL (4.8-10.8)
[2022-04-04 10:23] LABS: COVID-19 Test Negative (Negative); IDNOW Serial# 9DB6401D
[2022-04-04 10:27] LABS: Alanine Aminotransferase 22 U/L (0-31); Albumin Level 4.9 g/dL (3.5-5.0); Alkaline Phosphatase 115 U/L (39-117); Anion Gap 20 (12-20); Aspartate Amino Transferase 19 U/L (5-31); Bilirubin Direct < 0.2 mg/dL (0.0-0.5); Bilirubin Total 0.3 mg/dL (0.0-1.0); Blood Urea Nitrogen 9 mg/dL (9-16); Calcium 10.6 mg/dL (8.4-10.2); Carbon Dioxide 24 mmol/L (22-29); Chloride 99 mmol/L (96-108); Creatinine Clr Calc Pharmacy 72.2; Estimated Glomerular Filt Rate > 60; Glucose Random 207 mg/dL (60-115); Lipase 33 U/L (8-78); Potassium 4.1 mmol/L (3.3-5.1); Sodium 139 mmol/L (135-145); Total Protein 8.2 g/dL (6.5-8.0)
== END 2022-04-04 14:50 | disposition left against medical advice (07) ==
LOC: HO.ED 14:16
PROVIDERS: Emergency Provider Emergency Medicine Emergency Medical Services
DX: R11.0 Nausea (principal); M79.10 Myalgia, unspecified site; R53.1 Weakness; E11.9 Type 2 diabetes mellitus without complications; I10 Essential (primary) hypertension; I48.91 Unspecified atrial fibrillation; E78.5 Hyperlipidemia, unspecified; Z20.822 Contact with and (suspected) exposure to COVID-19
CPT/HCPCS: 80048; 80076; 83690; 85025; 87635; 99281; 99283

== ENCOUNTER 2022-04-09 09:41 | Emergency (ER) | payer MEDICAID, SELFPAY ==
--- NOTE | ~2022-04-09 | US_ITS ---
EXAMINATION: US ABDOMEN COMPLETE CLINICAL INFORMATION: Upper abdominal pain and fullness. COMPARISON: 02/13/2018 Limited ultrasound. TECHNIQUE: Real-time imaging of the abdominal viscera. FINDINGS: PANCREAS: Visualized portions unremarkable. ABDOMINAL AORTA: Visualized portions unremarkable. INFERIOR VENA CAVA: Visualized portions unremarkable. LIVER: Small anechoic cysts in the left lobe both measuring 1.1 cm. GALLBLADDER: Normal. The gallbladder is physiologically distended without evidence of stones, sludge, polyps, wall thickening or pericholecystic fluid. COMMON BILE DUCT: Normal in caliber measuring 0.4 cm in diameter. RIGHT KIDNEY: 11.1 cm. Anechoic cyst in the lower pole measures 3.1 cm. Color Doppler showed no abnormal vascular flow. No nephrolithiasis or hydronephrosis. LEFT KIDNEY: 10.2 cm. Unremarkable. SPLEEN: 7.6 cm. Unremarkable. FREE FLUID: None. US/US abdomen complete IMPRESSION: Left hepatic and right renal cysts demonstrate benign features not requiring follow-up. No acute abnormality.
[2022-04-09 09:54] VITALS: BP 160/70; PULSE 72; RESP 18; TEMP 36.6; O2SAT 98; BMI 32.9
[2022-04-09 10:50] LABS: MANUAL DIFF FLAG NO
[2022-04-09 10:51] LABS: Basophils Percent Auto 0.3 % (0-2); Eosinophils Absolute Auto 0.1 X10*3/uL (0.0-0.4); Hemoglobin 13.2 g/dl (12.0-16.0); Imm Gran Abs Auto 0.03 X10*3/uL (0.00-0.03); Imm Gran Pct Auto 0.3 % (0.0-0.4); Lymphocytes Absolute Auto 1.8 X10*3/uL (1.2-4.9); Lymphocytes Percent Auto 20.2 % (20-40); Mean Corpuscular Hemoglobin 29.5 pg (27.0-33.0); Mean Corpuscular Volume 89.3 fL (80.0-98.0); Mean Platelet Volume 10.7 fL (9.4-12.3); Monocytes Absolute Auto 0.6 X10*3/uL (0.1-1.2); Monocytes Percent Auto 6.2 % (2-11); Neutrophils Absolute Auto 6.4 x10*3/uL (2.0-8.3); Platelet Count 319 X10*3/uL (160-400); Red Blood Count 4.48 X10*6/uL (4.20-5.50); Red Cell Distribution Width 12.9 % (11.0-16.0); White Blood Count 8.9 X10*3/uL (4.8-10.8)
[2022-04-09 11:13] LABS: Alanine Aminotransferase 20 U/L (0-31); Albumin Level 4.8 g/dL (3.5-5.0); Alkaline Phosphatase 107 U/L (39-117); Anion Gap 15 (12-20); Aspartate Amino Transferase 18 U/L (5-31); Bilirubin Direct < 0.2 mg/dL (0.0-0.5); Bilirubin Total 0.2 mg/dL (0.0-1.0); Blood Urea Nitrogen 9 mg/dL (9-16); Calcium 10.8 mg/dL (8.4-10.2); Carbon Dioxide 29 mmol/L (22-29); Chloride 101 mmol/L (96-108); Creatinine Clr Calc Pharmacy 73.1; Estimated Glomerular Filt Rate > 60; Glucose Random 169 mg/dL (60-115); Lipase 24 U/L (8-78); Potassium 4.2 mmol/L (3.3-5.1); Sodium 141 mmol/L (135-145); Total Protein 7.9 g/dL (6.5-8.0)
[2022-04-09 11:16] LABS: Appearance Urine Clear; Color Urine Yellow; Glucose Urine UA Negative (Negative); Leukocyte Esterase Urine Trace (Negative); Nitrite Urine Negative (Negative); PH 6.5 (5.0-9.0); UMIC TRIGGER UACC YES; Urine Blood Negative (Negative); Urine Ketones Negative (Negative); Urine Protein Negative (Neg-Trace)
[2022-04-09 11:25] LABS: Bacteria Urine None Seen (None Seen); Hyaline Casts Urine 0-2 /LPF (0-2); RBC Urine 0-2 /HPF (0-2); Squamous Epithelial Cell Urine 0-2 /HPF (0-2); WBC Urine 0-5 /HPF (0-5)
[2022-04-09 11:44] LABS: Magnesium 1.9 mg/dL (1.6-2.6)
--- NOTE | 2022-04-09 11:47 | ED.ABDPAIN ---
HPI - Abdominal Pain General Chief Complaint: General Medical Stated Complaint: dizzy, weak, vomiting Time Seen by Provider: 04/09/22 10:57 Source: patient and family Mode of arrival: ambulatory Limitations: language barrier (Ugandan-speaking) History of Present Illness HPI narrative: 62yoF c PMHx of asthma, depression, diabetes, atrial fibrillation, HTN, HLD, GERD, migraine headaches, chronic back pain with sciatica presenting to the ED with at bedside with complaints of generalized weakness and nausea with upper abdominal fullness for approximately 1 month. She reports that she has been seen here in the past for the same reports that her pain comes and goes often. Patient was evaluated for same complaint on 03/09/2022 and again on 03/20/2022 and reports she had a negative workup and told to follow-up with PCP. She denies any fevers, chills, dizziness, headaches, neck pain/stiffness, trouble swallowing or breathing, chest pain or shortness of breath, dyspnea on exertion, orthopnea, palpitations, paresthesias, radiation of the abdominal pain, back pain, flank pain, dysuria, hematuria, abnormal vaginal discharge, black or bloody stools, recent travel or sick contacts, possible bad food exposure, lower extremity edema or calf tenderness, rashes or any other symptoms complaints or concerns at this time. MD elicited complaint: abdominal pain Pertinent past history: other (See above) Onset (ago): month(s) (1 worse in past 2 days ) Pain Consistency: intermittent Location: epigastric, LUQ and RUQ Severity: mild Quality: fullness Radiation: none Migration to: no migration Exacerbating factors: nothing Relieving factors: nothing Associated symptoms: nausea Related Data Previous Rx's Medication Instructions Recorded ondansetron 4 mg disintegrating 4 mg PO Q6-8H PRN nausea and 03/09/22 tablet vomiting #14 tabs omeprazole 20 mg capsule,delayed 20 mg PO BID gerd #30 caps 04/09/22 release ondansetron 4 mg disintegrating 4 mg PO Q8H #14 tabs 04/09/22 tablet Allergies Allergy/AdvReac Type Severity Reaction Status Date / Time No Known Allergies Allergy Verified 03/09/22 07:58 Review of Systems Review of Systems Constitutional : No Fever, No Chills, No Night Sweats, No Fatigue, No Malaise Cardiovascular : No Chest Pain, No SOB Respiratory : No Cough, No Sputum, No Wheezing, No Dyspnea Gastrointestinal : + Nausea, + abdominal pain, No Vomiting, No Diarrhea, No Hematochezia, No Melena Genitourinary : No irregular bleeding, No Dysuria, No Urinary Frequency, No Hematuria,No Urinary Incontinence, No Urgency, No Flank Pain Musculoskeletal : No joint pain, No Myalgias, No Joint Swelling Skin : No Skin Lesions, No rash Neuro : No Weakness, No Numbness, No Paresthesias, No Loss of Consciousness, No Dizziness, No Headache Heme/Lymph: No Lymphadenopathy Endocrine : No Temperature Intolerance Yes all other systems are reviewed and are negative [facility] Past Medical History Attestation statement: The following information was validated with the patient. Source: old records reviewed, obtained from family and nursing notes reviewed Social History Social History Alcohol intake: former Patient Tobacco Use Status: Never used Tobacco Advance Directives: No Physical Exam ED Vital Signs: Vital Signs - 24 hr 04/09/22 09:54 Temperature 98 F Pulse Rate 72 Respiratory Rate 18 Blood Pressure 160/70 H Pulse Oximetry 98 Oxygen Delivery Method Room Air BMI result Body Mass Index 32.9 vital signs have been reviewed as normal and appeared to be correct. Blood pressure 160/70. Heart rate normal. Respiration rate normal. Temperature normal. Oxygen saturation normal. Appearance: Alert. Oriented X3. No acute distress. Head: Normal external exam. Normocephalic. Atraumatic. Eyes: PERRLA. EOMI. Conjunctiva and sclera normal. Eyelids normal. ENT: Pharynx normal. Uvula midline. Moist mucous membranes. No lesions/ulcerations or masses noted on the tongue. Normal voice. No trismus noted. No drooling noted. No muffled voice noted. Neck: Normal inspection. Neck supple. FROM. No adenopathy. Thyroid Normal. No tracheal deviation noted. No crepitus is noted. No meningeal signs. No neck mass noted. No signs of trauma noted. CVS: Normal heart rate and rhythm. Heart sound normal. Pulses normal throughout. No murmurs/rales/gallops. Respiratory: No respiratory distress. Painless inspiration. Breath sounds normal. No wheezes/rales/rhonchi noted. Chest nontender. No crepitus is noted. No signs of trauma noted. No accessory muscle usage noted or decreased air movement noted. No signs of trauma. Abdomen: Soft and mild TTp/distention to epigastric/RUQ/LUQ areas of abdomen. Bowel sounds normal in all 4 quadrants. No distention noted. No organomegaly noted. No visible injury noted. Back: No CVA tenderness. Full range of motion noted. Nontender. No signs of trauma. Patient neuro intact bilaterally and distally on all 4 extremities. Patient's reflexes intact bilaterally and distally on all 4 extremities. No rashes/lesion/induration/fluctuance or signs of infection noted. Skin: Skin warm and dry. Normal skin color. Normal skin turgor. No rashes/lesions/lacerations noted. Extremities: No lower extremity edema. No calf tenderness is noted. Extremities exhibit normal range of motion and nontender. Neuro: Oriented X 3. No motor deficit. No sensory deficit. Reflexes normal. Normal steady gait. No focal neuro deficits noted. CN's II-XII intact bilaterally? Vascular: + radial pulses/+ 2 distal pedal pulses/+2 dorsalis pedis b/l. Normal cap refill. No cyanosis noted to upper extremity nails and lower extremity toes nails. Course Course Course Narrative: 11am - 62yoF c PMHx of asthma, depression, diabetes, atrial fibrillation, HTN, HLD, GERD, migraine headaches, chronic back pain with sciatica presenting to the ED with at bedside with complaints of generalized weakness and nausea with upper abdominal fullness for approximately 1 month. She reports that she has been seen here in the past for the same reports that her pain comes and goes often. Patient was evaluated for same complaint on 03/09/2022 and again on 03/20/2022 and reports she had a negative workup and told to follow-up with PCP Plan: Will obtain labs, UA and ultrasound of abdomen and re-evaluate. Reevaluation(s) Reevaluation #1: Labs reviewed - random glucose 169. - calcium 10.8. - UA revealed trace leukocytes otherwise negative nitrates not consistent with UTI at this time patient denies any urinary symptoms. Will await culture. - otherwise all other labs are within normal limits Plan: Awaiting abdominal ultrasound will re-evaluate. Time: 11:55 Reevaluation #2: Ultrasound revealed chronic changes no acute processes noted. Patient most likely gastritis. Patient is now eating and drinking with her at bedside tolerating p.o.. Will DC home with instructions follow-up with PCP and to return if any new or worsening symptoms. Patient understands agrees with this plan. Time: 12:46 MDM - Abdominal Pain Medical Records Attestation: I reviewed the patient's medical records. Lab Data Attestation: I reviewed the patient's lab results. Result diagrams: 04/09/22 10:44 04/09/22 10:44 Labs: Lab Results 04/09/22 04/09/22 04/09/22 Range/Units 10:44 10:44 11:07 WBC 8.9 (4.8-10.8) X10*3/uL RBC 4.48 (4.20-5.50) X10*6/uL Hgb 13.2 (12.0-16.0) g/dl Hct 40.0 (37.0-47.0) % MCV 89.3 (80.0-98.0) fL MCH 29.5 (27.0-33.0) pg MCHC 33.0 (31.0-35.0) g/dl RDW 12.9 (11.0-16.0) % Plt Count 319 (160-400) X10*3/uL MPV 10.7 (9.4-12.3) fL Immature Gran % (Auto) 0.3 (0.0-0.4) % Neut % (Auto) 72.0 (45-73) % Lymph % (Auto) 20.2 (20-40) % [place] % (Auto) 6.2 (2-11) % Eos % (Auto) 1.0 (0-4) % Baso % (Auto) 0.3 (0-2) % Lymph # (Auto) 1.8 (1.2-4.9) X10*3/uL [place] # (Auto) 0.6 (0.1-1.2) X10*3/uL Eos # (Auto) 0.1 (0.0-0.4) X10*3/uL Baso # (Auto) 0.0 (0.0-0.2) X10*3/uL Abs Immat Gran (auto) 0.03 (0.00-0.03) X10*3/uL Absolute Neuts (auto) 6.4 (2.0-8.3) x10*3/uL Absolute Nucleated RBC 0.000 (0.0-0.012) X10*3/uL Nucleated RBC % (auto) 0.0 (0.0-0.2) /100WBC Sodium 141 (135-145) mmol/L Potassium 4.2 (3.3-5.1) mmol/L Chloride 101 (96-108) mmol/L Carbon Dioxide 29 (22-29) mmol/L Anion Gap 15 (12-20) BUN 9 (9-16) mg/dL Creatinine 0.79 (0.5-1.4) mg/dL Estim Creat Clear Calc 73.1 Estimated GFR > 60 Random Glucose 169 H (60-115) mg/dL Calcium 10.8 H (8.4-10.2) mg/dL Magnesium 1.9 (1.6-2.6) mg/dL Total Bilirubin 0.2 (0.0-1.0) mg/dL Direct Bilirubin < 0.2 (0.0-0.5) mg/dL AST 18 (5-31) U/L ALT 20 (0-31) U/L Alkaline Phosphatase 107 (39-117) U/L Total Protein 7.9 (6.5-8.0) g/dL Albumin 4.8 (3.5-5.0) g/dL Lipase 24 (8-78) U/L Urine Color Yellow Urine Appearance Clear Urine pH 6.5 (5.0-9.0) Ur Specific [place] 1.010 (1.005-1.025) Urine Protein Negative (Neg-Trace) mg/dL Urine Glucose (UA) Negative (Negative) mg/dL Urine Ketones Negative (Negative) mg/dL Urine Blood Negative (Negative) Urine Nitrite Negative (Negative) Ur Leukocyte Esterase Trace H (Negative) Urine RBC 0-2 (0-2) /HPF Urine WBC 0-5 (0-5) /HPF Ur Squamous Epith Cells 0-2 (0-2) /HPF Urine Bacteria None Seen (None Seen) Hyaline Casts 0-2 (0-2) /LPF Imaging Data Abdominal ultrasound: Attestation: I personally reviewed and interpreted this imaging study as follows: Radiologist's impression: FINDINGS: PANCREAS: Visualized portions unremarkable. ABDOMINAL AORTA: Visualized portions unremarkable. INFERIOR VENA CAVA: Visualized portions unremarkable. LIVER: Small anechoic cysts in the left lobe both measuring 1.1 cm. GALLBLADDER: Normal. The gallbladder is physiologically distended without evidence of stones, sludge, polyps, wall thickening or pericholecystic fluid. COMMON BILE DUCT: Normal in caliber measuring 0.4 cm in diameter. RIGHT KIDNEY: 11.1 cm. Anechoic cyst in the lower pole measures 3.1 cm. Color Doppler showed no abnormal vascular flow. No nephrolithiasis or hydronephrosis. LEFT KIDNEY: 10.2 cm. Unremarkable. SPLEEN: 7.6 cm. Unremarkable. FREE FLUID: None. US/US abdomen complete IMPRESSION: Left hepatic and right renal cysts demonstrate benign features not requiring follow-up. No acute abnormality. Discharge Plan Discharge Clinical Impression: Abdominal pain, Gastritis, Benign liver cyst Patient Disposition: Home, Self-Care Prescriptions: New ondansetron 4 mg tablet,disintegrating 4 mg PO Q8H Qty: 14 0RF omeprazole 20 mg capsule,delayed release(DR/EC) 20 mg PO BID Qty: 30 0RF No Action ondansetron 4 mg tablet,disintegrating 4 mg PO Q6-8H PRN (Reason: nausea and vomiting) Qty: 14 0RF Referrals: [facility] [Primary Care Provider] - 2 days Print Language: Ugandan
== END 2022-04-09 13:41 | disposition home or self-care (01) ==
PROVIDERS: Physician Assistant Medical; Emergency Provider Emergency Medicine Emergency Medical Services
DX: K29.70 Gastritis, unspecified, without bleeding (principal); R10.10 Upper abdominal pain, unspecified; E11.9 Type 2 diabetes mellitus without complications; I10 Essential (primary) hypertension; E78.5 Hyperlipidemia, unspecified; I48.91 Unspecified atrial fibrillation; K76.89 Other specified diseases of liver
CPT/HCPCS: 36415; 76700; 80048; 80076; 81001; 83690; 83735; 85025; 99282; 99284

== ENCOUNTER 2022-12-15 12:43 | Outpatient (REF) | payer MEDICAID, SELFPAY ==
--- NOTE | ~2022-12-15 | MM_ITS ---
EXAMINATION: MM SCREENING DIGITAL BREAST TOMOSYNTHESIS, BILATERAL CLINICAL INFORMATION: Screening. Asymptomatic. The lifetime risk of breast cancer based on the Tyrer-Cuzick Model is 15%. COMPARISON: Mammography: This study is compared with prior exams dating back to 2018. TECHNIQUE: Digital breast tomosynthesis is performed in both the craniocaudal and mediolateral oblique views along with computer-aided detection (CAD). Synthesized 2D images are generated from the tomosynthesis. FINDINGS: The breasts are heterogeneously dense, which may obscure small masses (ACR BI-RADS breast composition Category c). There are no significant masses, abnormal calcifications, or other abnormalities. MM/MM tomosynthesis screening BI IMPRESSION: No mammographic evidence of malignancy. ASSESSMENT: BI-RADS BI-RADS 1 - Negative RECOMMENDATION: Routine annual mammography screening. 1 year F/U This examination should not preclude the clinical evaluation of a suspicious palpable abnormality. This patient's information was entered into a reminder system with a target due date for their next mammogram.
== END 2022-12-15 12:44 | disposition home or self-care (01) ==
LOC: HO.MAMMO 12:43
PROVIDERS: PCP General Practice; Visit Provider General Practice
DX: Z12.31 Encounter for screening mammogram for malignant neoplasm of breast (principal)
CPT/HCPCS: 77063; 77067

== ENCOUNTER → 2022-12-15 13:15 | Outpatient (BNV) | payer MEDICAID, SELFPAY | PROVIDERS: PCP General Practice; Visit Provider Radiology Diagnostic Radiology | DX: Z12.31 Encounter for screening mammogram for malignant neoplasm of breast (principal) | CPT/HCPCS: 77063; 77067 ==

== ENCOUNTER 2023-08-13 06:18 | Emergency (ER) | payer MEDICAID, SELFPAY ==
[2023-08-13 06:32] VITALS: BP 174/81; PULSE 79; RESP 18; TEMP 36.7; O2SAT 97; BMI 38.5
--- NOTE | 2023-08-13 06:35 | ED_ITS ---
HPI - General Adult General Chief complaint: Epistaxis Stated complaint: oral pain? 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 Patient states that she woke up this morning, blew her nose, and noticed blood in the mucus. Patient states that her nose is not currently bleeding and she has no complaints. Patient denies any dizziness, lightheadedness, abdominal pain, nausea, vomiting, fever, chills, blurry vision, double vision, loss of vision, chest pain, difficulty breathing, shortness of breath, back pain, night sweats, pain with urination, increased urinary frequency, increased urinary urgency, blood in her urine or stool, syncope or a near syncopal episode, recent trauma or falls, bowel incontinence, bladder incontinence, bowel retention, bladder retention, or any other complaints at this time. Relieving factors: none Exacerbating factors: none Associated symptoms: denies other symptoms Treatments prior to arrival: none Related Data Previous Rx's Medication Instructions Recorded ondansetron 4 mg disintegrating 4 mg PO Q6-8H PRN nausea and 03/09/22 tablet vomiting #14 tabs omeprazole 20 mg capsule,delayed 20 mg PO BID gerd #30 caps 04/09/22 release ondansetron 4 mg disintegrating 4 mg PO Q8H #14 tabs 04/09/22 tablet Allergies Allergy/AdvReac Type Severity Reaction Status Date / Time No Known Allergies Allergy Verified 03/09/22 07:58 Review of Systems Constitutional: Constitutional: Reports no additional constitutional complaints, Denies chills, Denies fever(s) and Denies night sweats Eyes: Eyes: Reports no additional eye complaints, Denies blurry vision, Denies change in vision, Denies diplopia, Denies eye discharge, Denies loss of vision and Denies eye pain ENT: Denies dizziness Cardiovascular: Cardiovascular: Reports no additional cardiovascular complaints, Denies chest pain, Denies lightheadedness, Denies Loss of Conscio usness and Denies dyspnea Respiratory: Respiratory: Reports no additional respiratory complaints and Denies dyspnea Gastrointestinal: Gastrointestinal: Reports no additional gastrointestinal complaints, Denies abdominal pain, Denies melena, Denies hematochezia, Denies change in bowel habits and Denies change in stool character Genitourinary: Genitourinary: Denies hematuria, Denies urinary frequency, Denies dysuria, Denies urinary incontinence, Denies urinary hesitancy and Denies urinary urgency Musculoskeletal: Musculoskeletal: Reports no additional musculoskeletal complaints, Denies numbness and Denies tingling Neurologic: Denies dizziness, Denies loss of vision, Denies numbness and Denies tingling Psychiatric: Psychiatric: Reports no additional psychiatric complaints Endocrine: Endocrine: Reports no additional endocrine complaints Hematologic/Lymphatic: Hematologic/Lymphatic: Reports no additional hematologic/lymphatic complaints Allergic/Immunologic: Allergic/Immunologic: Reports no additional allergic/immunologic complaints PMFSH Past Medical History Attestation statement: The following information was validated with the patient. Source: old records reviewed and nursing notes reviewed Social History Social History Alcohol intake: former Patient Tobacco Use Status: Never used Tobacco Advance Directives: No Advance Directives Information Provided: No Physical Exam ED Vital Signs: Vital Signs - 24 hr 08/13/23 06:32 08/13/23 06:56 Temperature 98.0 F 98 F Pulse Rate 79 79 Respiratory Rate 18 18 Blood Pressure 174/81 H 174/81 H Pulse Oximetry 97 97 Oxygen Delivery Method Room Air Room Air BMI result Body Mass Index 38.5 Const General: cooperative, no acute distress, alert and awake Nutritional Appearance: well nourished Orientation/consciousness: patient oriented x3 Limitations: no limitations [facility] Head: Yes normal to inspection and Yes atraumatic Ears: hearing grossly normal bilaterally and external ears normal General nose exam: Normal external nose present, no nasal discharge noted and no epistaxis Face and sinus: Yes normal facial exam, No abrasion and No laceration Mouth: Normal oral and palatal mucosa present, no drooling and no muffled voice Eyes General: appearance normal, both eyes and all related structures Periorbital: periorbital findings normal Eyelids: Yes eyelids normal Conjunctivae: conjunctivae normal Pupils: Equal, round and reactive pupils present EOM: EOMs intact bilaterally Neck Neck: Yes normal visual inspection, Yes full ROM and Yes no lymphadenopathy Chest Chest palpation & inspection: normal inspection of the chest Resp Effort & Inspection: normal respiratory effort and able to speak in complete sentences GI Inspection: Yes normal to inspection Neuro General: patient oriented x3 and moves all extremities Cranial nerves: Yes Equal, round and reactive pupils present Cognition (Neuro): normal cognition Motor exam (neuro): 5/5 motor strength present throughout Sensory Exam: Normal double simultaneous stimulation for sensation Coordination: [id number] test normal Extrem General: Yes normal to inspection, Yes full ROM and Yes capillary refill normal Psych Appearance: grossly normal Mental Status: mental status grossly normal Affect: normal affect Attitude: cooperative Thought process: Normal thought process present Thought content: Normal thought content present Insight: Good insight present (Psych) Medical Decision Making Medical Decision Making MDM Narrative: Patient is a 63 year old assigned female at with a history of atrial fib, DM, depression, and asthma presenting to the emergency department today with blood in her nasal mucus. Patient's physical exam was unremarkable, no blood present in the nasal or oral pharynx. I explained my physical exam findings to the patient. I answered all questions asked by the patient. I stressed the importance of the patient taking her medication as prescribed. I stressed the importance of the patient following up with her primary care provider. I stressed the importance of the patient returning to the emergency department immediately if her symptoms were to worsen or if she were to develop any dizziness, shortness of breath, difficulty breathing, chest pain, blurry vision, loss of vision, nausea, vomiting, abdominal pain, fever, chills, back pain, or any other complaints. Patient verbalized agreement and understanding with this treatment plan and discharge. Differential Diagnosis Differential Diagnoses: The differential diagnosis associated with the presentation includes Epistaxis Admission/Observation Consideration of admission/observation: Escalation of care including admission/observation considered Patient would have been admitted to the hospital had her clinical presentation warranted hospital admission. Discharge Plan Discharge Clinical Impression: Epistaxis Patient Disposition: Home, Self-Care Instructions: Nosebleed (ED) Additional Instructions: Follow up with your primary care provider. Return to the emergency department immediately if your symptoms worsen or if you develop any dizziness, shortness of breath, difficulty breathing, chest pain, blurry vision, loss of vision, nausea, vomiting, abdominal pain, fever, chills, back pain, or any other complaints. Prescriptions: No Action ondansetron 4 mg tablet,disintegrating 4 mg PO Q8H Qty: 14 0RF omeprazole 20 mg capsule,delayed release(DR/EC) 20 mg PO BID Qty: 30 0RF ondansetron 4 mg tablet,disintegrating 4 mg PO Q6-8H PRN (Reason: nausea and vomiting) Qty: 14 0RF Referrals: Dena Stevens FNP [Primary Care Provider] - Interventions: ED Discharge Assessment Last Done: 08/13/23 06:56 Discharge Date/Time: 08/13/23 06:57 Print Language: Danish
[2023-08-13 06:56] VITALS: BP 174/81; PULSE 79; RESP 18; TEMP 36.6; O2SAT 97
== END 2023-08-13 06:57 | disposition home or self-care (01) ==
PROVIDERS: Emergency Provider Emergency Medicine; PCP Registered Nurse
DX: R04.0 Epistaxis (principal); I48.91 Unspecified atrial fibrillation; I10 Essential (primary) hypertension; E11.9 Type 2 diabetes mellitus without complications; J45.909 Unspecified asthma, uncomplicated
CPT/HCPCS: 99283; 99284

== ENCOUNTER 2023-09-08 09:46 | Outpatient (REF) | payer MEDICAID, SELFPAY ==
[2023-09-08 11:40] LABS: MANUAL DIFF FLAG NO
[2023-09-08 12:06] LABS: Basophils Absolute Auto 0.1 X10*3/uL (0.0-0.2); Basophils Percent Auto 0.4 % (0-2); Eosinophils Absolute Auto 0.1 X10*3/uL (0.0-0.4); Eosinophils Percent Auto 1.1 % (0-4); Hemoglobin 13.5 g/dl (12.0-16.0); Imm Gran Abs Auto 0.04 X10*3/uL (0.00-0.03); Imm Gran Pct Auto 0.3 % (0.0-0.4); Lymphocytes Absolute Auto 2.7 X10*3/uL (1.2-4.9); Lymphocytes Percent Auto 21.4 % (20-40); Mean Corpuscular HGB Conc 32.9 g/dl (31.0-35.0); Mean Corpuscular Hemoglobin 29.7 pg (27.0-33.0); Mean Corpuscular Volume 90.1 fL (80.0-98.0); Mean Platelet Volume 11.8 fL (9.4-12.3); Monocytes Absolute Auto 0.6 X10*3/uL (0.1-1.2); Monocytes Percent Auto 4.9 % (2-11); Neutrophils Percent Auto 71.9 % (45-73); Platelet Count 321 X10*3/uL (160-400); Red Blood Count 4.55 X10*6/uL (4.20-5.50); Red Cell Distribution Width 12.8 % (11.0-16.0); White Blood Count 12.5 X10*3/uL (4.8-10.8)
[2023-09-08 12:57] LABS: Alanine Aminotransferase 23 U/L (0-31); Albumin Level 4.6 g/dL (3.5-5.0); Alkaline Phosphatase 111 U/L (39-117); Anion Gap 13 (12-20); Aspartate Amino Transferase 18 U/L (5-31); Bilirubin Total 0.2 mg/dL (0.0-1.0); Blood Urea Nitrogen 14 mg/dL (9-16); C Reactive Protein 0.54 mg/dL (< or = 0.50); Calcium 10.3 mg/dL (8.4-10.2); Carbon Dioxide 30 mmol/L (22-29); Chloride 103 mmol/L (96-108); Estimated Glomerular Filt Rate > 60; Glucose Random 141 mg/dL (60-115); Lipase 41 U/L (8-78); Potassium 4.1 mmol/L (3.3-5.1); Sodium 142 mmol/L (135-145); Total Protein 8.3 g/dL (6.5-8.0)
[2023-09-08 17:58] LABS: Rheumatoid Factor < 13.0 IU/mL (<15.0)
[2023-09-11 14:48] LABS: Cyclic Citrullinated Peptide <16 UNITS
[2023-09-12 17:19] LABS: VITAMIN D (1,25 OH) D3 57 pg/mL; Vit D (1,25-Dihydroxy) Total 57 pg/mL (18-72); Vitamin D (1,25 OH) D2 <8 pg/mL
== END 2023-09-08 09:47 | disposition home or self-care (01) ==
LOC: HO.HHCL 09:46
PROVIDERS: Visit Provider Emergency Medicine
DX: R53.83 Other fatigue (principal); M25.50 Pain in unspecified joint
CPT/HCPCS: 36415; 80053; 82652; 83690; 85025; 86140; 86200; 86431

== ENCOUNTER 2023-09-21 01:05 | Emergency (ER) | payer MEDICAID, SELFPAY ==
--- NOTE | 2023-09-21 | ECG_ITS ---
Test Reason : CHEST PAIN Blood Pressure : / mmHG Vent. Rate : 077 BPM Atrial Rate : 077 BPM P-R Int : 152 ms QRS Dur : 082 ms QT Int : 386 ms P-R-T Axes : 053 -01 011 degrees QTc Int : 436 ms Normal sinus rhythm Minimal voltage criteria for LVH, may be normal variant ( R in aVL ) Nonspecific T wave abnormality Abnormal ECG When compared with ECG of 20-MAR-2022 09:16, No significant change was found Referred By: Generic ED Physician Electronically Signed By:CINDY MEZA
--- NOTE | ~2023-09-21 | CT_ITS ---
EXAMINATION: CT ABDOMEN AND PELVIS WITH CONTRAST CLINICAL INFORMATION: Abdominal pain and diarrhea. Leukocytosis. COMPARISON: 03/20/2022 TECHNIQUE: Multidetector volumetric images were obtained from the superior aspect of the liver through the pubic symphysis following administration 85 mL of Omnipaque 350 intravenous contrast. Sagittal and coronal reformatted images were obtained on the technologist's workstation. Oral contrast: No This CT examination was performed using dose optimization techniques as appropriate, variously including the following: *Automated exposure control *Adjustment of mA and/or kV according to patient size (this includes techniques or standardized protocols for targeted exams where dose is matched to indication/reason for exam; i.e. extremities or head) *Use of iterative reconstruction technique DLP: 725 mGy-cm FINDINGS: LUNG BASES: The visualized lung bases are unremarkable. LIVER, GALLBLADDER, AND BILIARY TREE: The liver is normal in size, shape, and attenuation. No suspicious hepatic lesion or biliary ductal dilatation is present. The gallbladder is unremarkable with no evidence of radiopaque gallstones, gallbladder wall thickening, or obvious pericholecystic inflammatory changes. PANCREAS: Unremarkable. SPLEEN: Unremarkable. ADRENAL GLANDS: Unremarkable. KIDNEYS AND URETERS: The kidneys are symmetric in size and enhancement. 2 mm nonobstructing calculus upper pole left kidney. 3.6 cm lower pole right renal cysts for which no further imaging follow-up is needed. No hydronephrosis or perinephric fluid collection. BLADDER: Underdistended. GASTROINTESTINAL TRACT: No small bowel obstruction. ABDOMINAL WALL: No significant hernia is appreciated. LYMPH NODES: No bulky lymphadenopathy. VASCULAR: Normal caliber abdominal aorta. PELVIC VISCERA: Unremarkable. OSSEOUS STRUCTURES: No destructive bone lesions. CT/CT abdomen pelvis w IV con IMPRESSION: 2 mm nonobstructing left renal calculus. No hydronephrosis.
[2023-09-21 01:43] VITALS: BP 145/74; BP 153/70; PULSE 79; PULSE 80; RESP 19; TEMP 36.7; O2SAT 98; O2SAT 99; BMI 35.6
[2023-09-21 01:43] LABS: MANUAL DIFF FLAG NO
[2023-09-21 01:44] LABS: Basophils Absolute Auto 0.1 X10*3/uL (0.0-0.2); Basophils Percent Auto 0.3 % (0-2); Eosinophils Absolute Auto 0.1 X10*3/uL (0.0-0.4); Eosinophils Percent Auto 0.4 % (0-4); Hematocrit 36.6 % (37.0-47.0); Hemoglobin 12.4 g/dl (12.0-16.0); Imm Gran Abs Auto 0.06 X10*3/uL (0.00-0.03); Imm Gran Pct Auto 0.3 % (0.0-0.4); Lymphocytes Absolute Auto 2.9 X10*3/uL (1.2-4.9); Lymphocytes Percent Auto 16.1 % (20-40); Mean Corpuscular HGB Conc 33.9 g/dl (31.0-35.0); Mean Corpuscular Hemoglobin 30.2 pg (27.0-33.0); Mean Corpuscular Volume 89.3 fL (80.0-98.0); Mean Platelet Volume 10.8 fL (9.4-12.3); Monocytes Absolute Auto 1.1 X10*3/uL (0.1-1.2); Neutrophils Absolute Auto 13.9 x10*3/uL (2.0-8.3); Neutrophils Percent Auto 76.9 % (45-73); Platelet Count 292 X10*3/uL (160-400); Red Cell Distribution Width 12.7 % (11.0-16.0)
[2023-09-21 02:00] LABS: Alanine Aminotransferase 18 U/L (0-31); Albumin Level 4.3 g/dL (3.5-5.0); Alkaline Phosphatase 106 U/L (39-117); Anion Gap 15 (12-20); Aspartate Amino Transferase 16 U/L (5-31); Bilirubin Direct 0.1 mg/dL (0.0-0.5); Bilirubin Total 0.3 mg/dL (0.0-1.0); Blood Urea Nitrogen 15 mg/dL (9-16); Calcium 10.1 mg/dL (8.4-10.2); Carbon Dioxide 26 mmol/L (22-29); Chloride 102 mmol/L (96-108); Estimated Glomerular Filt Rate > 60; Glucose Random 159 mg/dL (60-115); Lipase 124 U/L (8-78); Potassium 3.1 mmol/L (3.3-5.1); Sodium 140 mmol/L (135-145); Total Protein 7.7 g/dL (6.5-8.0)
[2023-09-21 02:07] LABS: Troponin-I High Sensitivity < 2.7 ng/L (<3.5-17.0)
[2023-09-21 03:35] LABS: Appearance Urine Clear; Color Urine Yellow; Glucose Urine UA Negative (Negative); Leukocyte Esterase Urine Small (1+) (Negative); Nitrite Urine Negative (Negative); Specific Gravity - Urine 1.015 (1.005-1.025); UMIC TRIGGER UACC YES; Urine Blood Negative (Negative); Urine Ketones Negative (Negative); Urine Protein Trace mg/dL (Neg-Trace)
[2023-09-21 03:37] LABS: Bacteria Urine None Seen (None Seen); Hyaline Casts Urine 0-2 /LPF (0-2); RBC Urine 0-2 /HPF (0-2); UACC Culture Trigger YES
--- NOTE | 2023-09-21 05:16 | PC.NURSE ---
assumed care of pt at 0137
[2023-09-21 05:46] VITALS: BP 112/47; PULSE 86; RESP 16; TEMP 36.6; O2SAT 99
--- NOTE | 2023-09-21 06:59 | ED_ITS ---
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 She then notes she has nausea now and doesn't feel right. No pain. No fevers, no travel, sick contacts, abx use. MD elicited complaint: other (n/v/d) Pertinent past history: none Onset (ago): day(s) (midnight) Location: epigastric Severity: moderate Exacerbating factors: eating Relieving factors: nothing Associated symptoms: nausea, vomiting and diarrhea Related Data Previous Rx's ?Medication ?Instructions ?Recorded ondansetron 4 mg disintegrating 4 mg PO Q6-8H PRN nausea and 03/09/22 tablet vomiting #14 tabs omeprazole 20 mg capsule,delayed 20 mg PO BID gerd #30 caps 04/09/22 release ondansetron 4 mg disintegrating 4 mg PO Q8H #14 tabs 04/09/22 tablet ondansetron 4 mg disintegrating 4 mg PO Q8H PRN nausea and 09/21/23 tablet vomiting #20 tabs Allergies Allergy/AdvReac Type Severity Reaction Status Date / Time No Known Allergies Allergy Verified 09/21/23 02:05 Review of Systems Review of Systems Constitutional : No Weight loss, No Fever, No Chills ENT/Mouth : No sore throat, No Rhinorrhea Eyes: No Swelling, No Redness Cardiovascular : No Chest Pain, No SOB, NoEdema Respiratory : No Cough, No Sputum, No Wheezing Gastrointestinal : Positive Nausea, Positive Vomiting, positive Diarrhea, no abdominal Pain, No Hematochezia, No Melena Genitourinary : No Dysuria, No Urinary Frequency, No Hematuria, No Urgency Musculoskeletal : No joint pain, No Myalgias, No Joint Swelling Skin : No Skin Lesions, No rash Neuro : No Weakness, No Numbness, No Dizziness, No Headache Psych : No Anxiety/Panic, No Depression All other systems reviewed and are negative. [facility] Past Medical History Attestation statement: The following information was validated with the patient. Source: old records reviewed Medical History (Updated 09/21/23 @ 11:26 by Krissy Lambert DO) Atrial fibrillation Asthma GERD (gastroesophageal reflux disease) Diabetes Hyperlipidemia Hypertension Chronic back pain Sciatica Social History Social History Alcohol intake: former Patient Tobacco Use Status: Never used Tobacco Smoked in Last 30 Days: No Use of substances other than those prescribed or required for medical reasons: No Advance Directives: No Advance Directives Information Provided: No Do you have a plan to hurt others: No Plan Patient : No Physical Exam ED Vital Signs: Vital Signs - 24 hr 09/21/23 01:43 09/21/23 05:46 09/21/23 10:23 Temperature 98.1 F 97.9 F Pulse Rate 80 86 78 Respiratory Rate 19 16 15 Blood Pressure 145/74 H 112/47 L 157/74 H Pulse Oximetry 98 99 99 Oxygen Delivery Method Room Air Room Air Room Air 09/21/23 10:49 Temperature 97.5 F Pulse Rate 70 Respiratory Rate 13 Blood Pressure 140/61 H Pulse Oximetry 97 Oxygen Delivery Method Room Air BMI result Body Mass Index 35.6 Appearance: Alert. Oriented X3. No acute distress. Eyes: Pupils equal, round and reactive to light. ENT: Pharynx normal. Neck: Normal inspection. Neck supple. CVS: Normal heart rate and rhythm. Pulses normal. Respiratory: No respiratory distress. Breath sounds normal. Abdomen: Soft and nontender. Skin: Skin warm and dry. Normal skin color. Normal skin turgor. Extremities: No lower extremity edema. No calf ttp Neuro: Oriented X 3. No motor deficit. No sensory deficit. Course Course Course Narrative: at this time elevated WBC count and lactic acidosis infection suspected 846am - cultures ordered and empiric ceftriaxone 846am. Reevaluation(s) Reevaluation #1: no acute findings on CT scan will repeat trop, cbc, lactic acid and reassess she is feeling better - lactic could be due to metformin use, WBC from vomiting. Medical Decision Making Medical Decision Making [facility] Narrative: 63 yo female with PMH of GERD, sciatica, HLD, HTN, afib, DM, depression, asthma here with c/o n/v/d and not feeling well starting at midnight she denies known exposures at this time will need basic labs, IVF, zofran CT scan for pancreatitis, enteritis, colitis. Currently denies pain , chest pain/sob Differential Diagnosis Differential Diagnoses: The differential diagnosis associated with the presentation includes gastritis, viral syndrome, enteritis, pancreatitis, Admission/Observation Consideration of admission/observation: Escalation of care including admission/observation considered WBC trending down, lactic acid down, repeat troponin down no acute findings on CT scan, UA not impressive given dose of ceftriaxone in ED feels better sent off cultures will hold off further treatmetns VS stable and DC home with precautions Lab Data MDM Lab Attestation statement: I reviewed the patient's lab results. 09/21/23 10:38 09/21/23 01:39 Labs: Lab Results 09/21/23 09/21/23 09/21/23 Range/Units 01:39 03:27 08:16 WBC 18.0 H (4.8-10.8) X10*3/uL RBC 4.10 L (4.20-5.50) X10*6/uL Hgb 12.4 (12.0-16.0) g/dl Hct 36.6 L (37.0-47.0) % MCV 89.3 (80.0-98.0) fL MCH 30.2 (27.0-33.0) pg MCHC 33.9 (31.0-35.0) g/dl RDW 12.7 (11.0-16.0) % Plt Count 292 (160-400) X10*3/uL MPV 10.8 (9.4-12.3) fL Immature Gran % (Auto) 0.3 (0.0-0.4) % Neut % (Auto) 76.9 H (45-73) % Lymph % (Auto) 16.1 L (20-40) % [place] % (Auto) 6.0 (2-11) % Eos % (Auto) 0.4 (0-4) % Baso % (Auto) 0.3 (0-2) % Lymph # (Auto) 2.9 (1.2-4.9) X10*3/uL [place] # (Auto) 1.1 (0.1-1.2) X10*3/uL Eos # (Auto) 0.1 (0.0-0.4) X10*3/uL Baso # (Auto) 0.1 (0.0-0.2) X10*3/uL Abs Immat Gran (auto) 0.06 H (0.00-0.03) X10*3/uL Absolute Neuts (auto) 13.9 H (2.0-8.3) x10*3/uL Absolute Nucleated RBC 0.000 (0.0-0.012) X10*3/uL Nucleated RBC % (auto) 0.0 (0.0-0.2) /100WBC Sodium 140 (135-145) mmol/L Potassium 3.1 L D (3.3-5.1) mmol/L Chloride 102 (96-108) mmol/L Carbon Dioxide 26 (22-29) mmol/L Anion Gap 15 (12-20) BUN 15 (9-16) mg/dL Creatinine 0.74 (0.5-1.4) mg/dL Estim Creat Clear Calc TNP Estimated GFR > 60 Random Glucose 159 H (60-115) mg/dL Lactic Acid 2.6 H* (0.5-2.0) mmol/L Lactic Acid F/U @ 2Hr (0.5-2.0) mmol/L Calcium 10.1 (8.4-10.2) mg/dL Total Bilirubin 0.3 (0.0-1.0) mg/dL Direct Bilirubin 0.1 (0.0-0.5) mg/dL AST 16 (5-31) U/L ALT 18 (0-31) U/L Alkaline Phosphatase 106 (39-117) U/L Troponin I High Sens < 2.7 (<3.5-17.0) ng/L Total Protein 7.7 (6.5-8.0) g/dL Albumin 4.3 (3.5-5.0) g/dL Lipase 124 H (8-78) U/L Urine Color Yellow Urine Appearance Clear Urine pH 8.0 (5.0-9.0) Ur Specific [place] 1.015 (1.005-1.025) Urine Protein Trace (Neg-Trace) mg/dL Urine Glucose (UA) Negative (Negative) mg/dL Urine Ketones Negative (Negative) mg/dL Urine Blood Negative (Negative) Urine Nitrite Negative (Negative) Ur Leukocyte Esterase Small (1+) H (Negative) Urine RBC 0-2 (0-2) /HPF Urine WBC 6-10 H (0-5) /HPF Ur Squamous Epith Cells 3-5 (0-2) /HPF Urine Bacteria None Seen (None Seen) Hyaline Casts 0-2 (0-2) /LPF Influenza Type A (PCR) (Negative) Influenza Type B (PCR) (Negative) RSV RNA Qual (PCR) (Negative) SARS-CoV-2 RNA (RT-PCR) (Negative) 09/21/23 09/21/23 Range/Units 08:55 10:38 WBC 13.4 H (4.8-10.8) X10*3/uL RBC 3.98 L (4.20-5.50) X10*6/uL Hgb 12.1 (12.0-16.0) g/dl Hct 35.9 L (37.0-47.0) % MCV 90.2 (80.0-98.0) fL MCH 30.4 (27.0-33.0) pg MCHC 33.7 (31.0-35.0) g/dl RDW 12.8 (11.0-16.0) % Plt Count 272 (160-400) X10*3/uL MPV 11.0 (9.4-12.3) fL Immature Gran % (Auto) (0.0-0.4) % Neut % (Auto) (45-73) % Lymph % (Auto) (20-40) % [place] % (Auto) (2-11) % Eos % (Auto) (0-4) % Baso % (Auto) (0-2) % Lymph # (Auto) (1.2-4.9) X10*3/uL [place] # (Auto) (0.1-1.2) X10*3/uL Eos # (Auto) (0.0-0.4) X10*3/uL Baso # (Auto) (0.0-0.2) X10*3/uL Abs Immat Gran (auto) (0.00-0.03) X10*3/uL Absolute Neuts (auto) (2.0-8.3) x10*3/uL Absolute Nucleated RBC 0.000 (0.0-0.012) X10*3/uL Nucleated RBC % (auto) 0.0 (0.0-0.2) /100WBC Sodium (135-145) mmol/L Potassium (3.3-5.1) mmol/L Chloride (96-108) mmol/L Carbon Dioxide (22-29) mmol/L Anion Gap (12-20) BUN (9-16) mg/dL Creatinine (0.5-1.4) mg/dL Estim Creat Clear Calc Estimated GFR Random Glucose (60-115) mg/dL Lactic Acid (0.5-2.0) mmol/L Lactic Acid F/U @ 2Hr 1.0 (0.5-2.0) mmol/L Calcium (8.4-10.2) mg/dL Total Bilirubin (0.0-1.0) mg/dL Direct Bilirubin (0.0-0.5) mg/dL AST (5-31) U/L ALT (0-31) U/L Alkaline Phosphatase (39-117) U/L Troponin I High Sens 3.1 (<3.5-17.0) ng/L Total Protein (6.5-8.0) g/dL Albumin (3.5-5.0) g/dL Lipase (8-78) U/L Urine Color Urine Appearance Urine pH (5.0-9.0) Ur Specific [place] (1.005-1.025) Urine Protein (Neg-Trace) mg/dL Urine Glucose (UA) (Negative) mg/dL Urine Ketones (Negative) mg/dL Urine Blood (Negative) Urine Nitrite (Negative) Ur Leukocyte Esterase (Negative) Urine RBC (0-2) /HPF Urine WBC (0-5) /HPF Ur Squamous Epith Cells (0-2) /HPF Urine Bacteria (None Seen) Hyaline Casts (0-2) /LPF Influenza Type A (PCR) NEGATIVE (Negative) Influenza Type B (PCR) NEGATIVE (Negative) RSV RNA Qual (PCR) NEGATIVE (Negative) SARS-CoV-2 RNA (RT-PCR) NEGATIVE (Negative) Independent Interpretation I performed an independent interpretation of an: EKG and CT Scan (no acute cause of symptoms) Interpretation: Rate: 77 Rhythm: NSR [place]: normal Normal P waves. Normal JESSY. Normal QRS complex. ST T wave : inverted t waves V1-V5, III qTC: 436 prior studies: no change from priors The study has been interpreted contemporaneously by me. . Radiology Impression Discussion of test interpretation with radiology: I have reviewed the radiologist's reading. Independent Historian Clinical information obtained from an independent historian. History obtained from or confirmed by: Spouse External Record Review External record reviewed: Office record Prescription Management I considered prescription management with: Other Medications Administered Discontinued Medications Generic Name Dose Route Start Last Admin Trade Name Freq PRN Reason Stop Dose Admin Sodium Chloride 1,000 mls @ 999 mls/hr 09/21/23 07:45 09/21/23 10:21 Ns IV 09/21/23 08:45 Infused .Q1H1M ANTWON Infusion Ceftriaxone Sodium 1 gm/ 50 mls @ 100 mls/hr 09/21/23 08:46 09/21/23 10:24 Sodium Chloride IV 09/21/23 09:15 100 mls/hr ONCE ONE Administration Iohexol 100 ml 09/21/23 08:47 09/21/23 08:48 Iohexol 350 Mg/Ml 100 Ml Infus..Btl IV 09/21/23 08:48 85 ml ONCE ONE Administration Ondansetron HCl 4 mg 09/21/23 07:36 09/21/23 08:24 Ondansetron Hcl 4 Mg/2 Ml Vial IVPUSH 09/21/23 07:37 4 mg ONCE ONE Administration Potassium Chloride 40 meq 09/21/23 08:37 09/21/23 10:25 Potassium Chloride Packet 20 Meq Packet PO 09/21/23 08:38 40 meq ONCE ONE Administration Critical Care Time Critical Care Time Critical Care Time: Yes Total Critical Care Time: 45 Attestation: repeat assessments, repeat labs, hydration I attest to this time spent taking care of the patient Discharge Plan Discharge Clinical Impression: Nausea vomiting and diarrhea, Acute dehydration Patient Disposition: Home, Self-Care Instructions: Dehydration (ED), Acute Nausea and Vomiting (ED), Acute Diarrhea (ED) Additional Instructions: bland diet for 24 hours, advance slowly return for worsening symptoms, pain, inability to eat or drink or any other concerns. Prescriptions: New ondansetron 4 mg tablet,disintegrating 4 mg PO Q8H PRN (Reason: nausea and vomiting) Qty: 20 0RF No Action ondansetron 4 mg tablet,disintegrating 4 mg PO Q8H Qty: 14 0RF omeprazole 20 mg capsule,delayed release(/EC) 20 mg PO BID Qty: 30 0RF ondansetron 4 mg tablet,disintegrating 4 mg PO Q6-8H PRN (Reason: nausea and vomiting) Qty: 14 0RF Print Language: Luxembourgish
[2023-09-21] MEDS: 0.9 % Sodium Chloride 1,000 ML 999 ML IV (08:24)
[2023-09-21] MEDS: ondansetron HCL 4 MG/2 ML VIAL IVPUSH (08:24)
--- NOTE | 2023-09-21 08:30 | PC.NURSE ---
assumed care of pt at 0700. pt resting in bed c/o nausea but requesting water and ice. pending MD assessment. pt denies pain reports having multiple episodes of diarrhea. used [facility] package liner to discuss plan of care with pt and at bedside. pt and aware of plan, no questions at this time.
[2023-09-21 08:37] LABS: Lactic Acid 2.6 mmol/L (0.5-2.0)
[2023-09-21] MEDS: iohexoL 350 MG/ML 100 ML INFUS..BTL IV (08:48)
[2023-09-21 09:38] LABS: Influenza A PCR NEGATIVE (Negative); Influenza B PCR NEGATIVE (Negative); Resp Syncy Virus RNA Qual PCR NEGATIVE (Negative); SARS COV2 PCR INHOUSE NEGATIVE (Negative)
[2023-09-21 10:19] LABS: Reflex Lactate? Lactic Acid Added
[2023-09-21 10:23] VITALS: BP 157/74; PULSE 78; RESP 15; O2SAT 99
[2023-09-21] MEDS: cefTRIAXone sodium 1 GM in 0.9 % Sodium Chloride 50 ML IV (10:24)
[2023-09-21] MEDS: Potassium Chloride Packet 20 MEQ PACKET 40 MEQ PO (10:25)
[2023-09-21 10:43] LABS: Hematocrit 35.9 % (37.0-47.0); Hemoglobin 12.1 g/dl (12.0-16.0); Mean Corpuscular HGB Conc 33.7 g/dl (31.0-35.0); Mean Corpuscular Hemoglobin 30.4 pg (27.0-33.0); Mean Corpuscular Volume 90.2 fL (80.0-98.0); Platelet Count 272 X10*3/uL (160-400); Red Blood Count 3.98 X10*6/uL (4.20-5.50); Red Cell Distribution Width 12.8 % (11.0-16.0); White Blood Count 13.4 X10*3/uL (4.8-10.8)
[2023-09-21 10:49] VITALS: BP 140/61; PULSE 70; RESP 13; TEMP 36.4; O2SAT 97
[2023-09-21 11:19] LABS: Troponin-I High Sensitivity 3.1 ng/L (<3.5-17.0)
[2023-09-21 11:53] VITALS: BP 160/61; PULSE 80; RESP 18; TEMP 36.4; O2SAT 99
== END 2023-09-21 12:05 | disposition home or self-care (01) ==
PROVIDERS: Emergency Provider Emergency Medicine; PCP General Practice
DX: R11.2 Nausea with vomiting, unspecified (principal); E86.0 Dehydration; R07.89 Other chest pain; R10.2 Pelvic and perineal pain; Z11.52 Encounter for screening for COVID-19; Z20.822 Contact with and (suspected) exposure to COVID-19; Z79.899 Other long term (current) drug therapy
CPT/HCPCS: 0241U; 36415; 74177; 80048; 80076; 81001; 83605; 83690; 84484; 85025; 85027; 87040; 87086; 93005; 96361; 96365; 96375; 99284; 99285; J0696; J2405; Q9967

== ENCOUNTER → 2023-09-21 01:45 | Outpatient (BNV) | payer MEDICAID, SELFPAY | PROVIDERS: Emergency Provider Emergency Medicine; PCP General Practice; Visit Provider Internal Medicine | DX: R94.31 Abnormal electrocardiogram [ECG] [EKG] (principal) | CPT/HCPCS: 93010 ==

== ENCOUNTER 2023-10-20 10:42 | Outpatient (REF) | payer MEDICAID, SELFPAY ==
[2023-10-20 12:05] LABS: Creatinine Urine 227.22 mg/dL; Microalbum/Creatinine Ratio Ur 15.8 ug/mg cr (<30)
[2023-10-20 12:15] LABS: Alanine Aminotransferase 17 U/L (0-31); Albumin Level 4.1 g/dL (3.5-5.0); Alkaline Phosphatase 106 U/L (39-117); Anion Gap 12 (12-20); Aspartate Amino Transferase 18 U/L (5-31); Bilirubin Total 0.4 mg/dL (0.0-1.0); Blood Urea Nitrogen 10 mg/dL (9-16); Calcium 9.8 mg/dL (8.4-10.2); Carbon Dioxide 28 mmol/L (22-29); Chloride 110 mmol/L (96-108); Cholesterol 148 mg/dL (<200); Estimated Glomerular Filt Rate > 60; Glucose Random 100 mg/dL (60-115); HDL Cholesterol 36 mg/dL (>40); LDL Cholesterol Calculated 93 mg/dL (<100); Potassium 3.8 mmol/L (3.3-5.1); Sodium 146 mmol/L (135-145); Total Protein 7.4 g/dL (6.5-8.0); Triglycerides 96 mg/dL (<150)
[2023-10-20 12:34] LABS: TSH reflex Free T4 1.12 uIU/mL (0.32-4.0)
== END 2023-10-20 10:43 | disposition home or self-care (01) ==
LOC: HO.HHCL 10:42
PROVIDERS: Visit Provider General Practice
DX: R13.19 Other dysphagia (principal); E11.65 Type 2 diabetes mellitus with hyperglycemia
CPT/HCPCS: 36415; 80053; 80061; 82043; 82570; 84443

== ENCOUNTER 2023-12-30 22:20 | Emergency (ER) | payer MEDICAID, SELFPAY ==
[2023-12-30 22:28] VITALS: BP 153/59; PULSE 79; RESP 16; TEMP 36.4; O2SAT 99; BMI 30.3
[2023-12-30 23:51] VITALS: BP 165/79; PULSE 69; RESP 18; TEMP 36.5; O2SAT 100
--- NOTE | 2023-12-30 23:55 | MHC.EDTECH ---
Hourly rounds and vitals completed,rectal temp is 102.3,HR 167 RN was made aware,
--- NOTE | 2023-12-31 00:27 | MHC.EDTECH ---
Hourly rounds and vitals completed,BP is elevated RN was made aware,lads drawn and sent to lab,family at bedside call roy in reach
[2023-12-31 00:31] LABS: MANUAL DIFF FLAG NO
[2023-12-31 00:32] LABS: Basophils Absolute Auto 0.1 X10*3/uL (0.0-0.2); Basophils Percent Auto 0.4 % (0-2); Eosinophils Absolute Auto 0.2 X10*3/uL (0.0-0.4); Eosinophils Percent Auto 1.7 % (0-4); Hematocrit 33.5 % (37.0-47.0); Hemoglobin 11.6 g/dl (12.0-16.0); Imm Gran Abs Auto 0.05 X10*3/uL (0.00-0.03); Imm Gran Pct Auto 0.4 % (0.0-0.4); Lymphocytes Absolute Auto 2.3 X10*3/uL (1.2-4.9); Lymphocytes Percent Auto 16.7 % (20-40); Mean Corpuscular HGB Conc 34.6 g/dl (31.0-35.0); Mean Corpuscular Hemoglobin 29.9 pg (27.0-33.0); Mean Corpuscular Volume 86.3 fL (80.0-98.0); Mean Platelet Volume 10.5 fL (9.4-12.3); Monocytes Absolute Auto 0.7 X10*3/uL (0.1-1.2); Monocytes Percent Auto 5.4 % (2-11); Neutrophils Absolute Auto 10.4 x10*3/uL (2.0-8.3); Neutrophils Percent Auto 75.4 % (45-73); Platelet Count 293 X10*3/uL (160-400); Red Blood Count 3.88 X10*6/uL (4.20-5.50); Red Cell Distribution Width 12.8 % (11.0-16.0); White Blood Count 13.8 X10*3/uL (4.8-10.8)
[2023-12-31 00:37] LABS: INTERNATIONAL NORM RATIO 0.9 (0.9-1.1); Prothrombin Time 11.4 SEC (11.1-13.3)
[2023-12-31 00:40] LABS: Partial Thromboplastin Time 37.2 SEC (26.0-36.8)
[2023-12-31 00:50] LABS: Anion Gap 14 (12-20); Blood Urea Nitrogen 9 mg/dL (9-16); Calcium 10.4 mg/dL (8.4-10.2); Carbon Dioxide 27 mmol/L (22-29); Chloride 104 mmol/L (96-108); Creatinine Clr Calc Pharmacy 75.7; Estimated Glomerular Filt Rate > 60; Glucose Random 155 mg/dL (60-115); Potassium 3.2 mmol/L (3.3-5.1); Sodium 142 mmol/L (135-145)
--- NOTE | 2023-12-31 01:04 | ED.EPISTAXIS ---
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 Patient did not apply external nose pressure and the bleeding stopped spontaneously. Patient declined any headache, not on HARISH medication, will only takes aspirin every day. Declined any facial or nose trauma. Patient in the ED has no nosebleed. Patient had history of nosebleed couple years ago with similar presentation did not have any other nostril bleed until today. Related Data Previous Rx's ?Medication ?Instructions ?Recorded ondansetron 4 mg disintegrating 4 mg PO Q6-8H PRN nausea and 03/09/22 tablet vomiting #14 tabs omeprazole 20 mg capsule,delayed 20 mg PO BID gerd #30 caps 04/09/22 release ondansetron 4 mg disintegrating 4 mg PO Q8H #14 tabs 04/09/22 tablet ondansetron 4 mg disintegrating 4 mg PO Q8H PRN nausea and 09/21/23 tablet vomiting #20 tabs Allergies Allergy/AdvReac Type Severity Reaction Status Date / Time No Known Allergies Allergy Verified 12/30/23 22:28 Review of Systems Review of Systems: All other systems are reviewed and are negative Constitutional: Reports as per HPI and Reports no additional constitutional complaints Eyes: Reports as per HPI and Reports no additional eye complaints Reports system reviewed and no additional complaints, except as documented Cardiovascular: Reports as per HPI and Reports no additional cardiovascular complaints Respiratory: Reports as per HPI and Reports no additional respiratory complaints Gastrointestinal: Reports as per HPI and Reports no additional gastrointestinal complaints Genitourinary: Reports no additional female genitourinary complaints Musculoskeletal: Reports no additional musculoskeletal complaints Skin/Breast: Reports system reviewed and no additional complaints, except as docu Psychiatric: Reports no additional psychiatric complaints Endocrine: Reports no additional endocrine complaints Hematologic/Lymphatic: Reports no additional hematologic/lymphatic complaints Allergic/Immunologic: Reports no additional allergic/immunologic complaints Reports system reviewed and no additional complaints, except as documented and Reports Abnormal speech present [facility] Past Medical History Medical History Atrial fibrillation Asthma GERD (gastroesophageal reflux disease) Diabetes Hyperlipidemia Hypertension Chronic back pain Sciatica Social History Social History Alcohol intake: former Patient Tobacco Use Status: Never used Tobacco Advance Directives: No Advance Directives Information Provided: No Do you have a plan to hurt others: No Plan Physical Exam Vital Signs: Vital Signs: Last Vital Signs Temp 97.7 F 12/30/23 23:51 Pulse 69 12/30/23 23:51 Resp 18 12/30/23 23:51 BP 165/79 H 12/30/23 23:51 Pulse Ox 100 12/30/23 23:51 O2 Del Method Room Air 12/30/23 23:51 BMI result Body Mass Index 30.3 Vital signs have been reviewed and appear to be correct. Blood pressure elevated. Heart rate normal. Respiratory rate normal. Temperature normal. Oxygen saturation normal. Appearance: Alert. Oriented X3. No acute distress. Head: Normal external exam. Normocephalic. Atraumatic. No Pacheco signs noted. No raccoon eyes noted Eyes: PERRLA. EOMI. Conjunctiva and sclera normal. Eyelids normal. ENT: TM's Normal. Pharynx normal. Dry blood in the right nostril, no active bleeding, no septal hematoma. Neck: Normal inspection. Neck supple. FROM. No adenopathy. Thyroid Normal. No meningeal signs. No neck mass noted. CVS: Normal heart rate and rhythm. Heart sound normal. No murmurs noted. Pulses normal throughout. Respiratory: No respiratory distress. Painless inspiration. Breath sounds normal. No wheezes/rales/rhonchi noted. Chest nontender. No accessory muscle usage noted or decreased air movement noted. Abdomen: Soft and nontender. Bowel sounds normal in all 4 quadrants. No distention noted. No organomegaly noted. No visible injury noted. Back: No CVA tenderness. Full range of motion noted. Skin: Skin warm and dry. Normal skin color. Normal skin turgor. No rashes/lesions/lacerations noted. Extremities: No lower extremity edema. Extremities exhibit normal range of motion. Extremities nontender. Neuro: Oriented X 3. Cranial nerve exam: II-XII are grossly intact No motor deficit. No sensory deficit. Reflexes normal. Course Reevaluation(s) Reevaluation #1: Spontaneous right nostril bleed, slightly anemic, no dizziness, no headache. No active bleeding while in the ED. Patient was educated and instructed how to control nosebleed by applying external nose pressure. Hypokalemia will replete potassium in the ED. Time: 01:08 Medical Decision Making Differential Diagnosis Differential Diagnoses: The differential diagnosis associated with the presentation includes (Spontaneous nosebleed, severe anemia, coagulopathy, thrombocytopenia, nose trauma) Admission/Observation Consideration of admission/observation: Escalation of care including admission/observation considered Lab Data MDM Lab Attestation statement: I reviewed the patient's lab results. 12/31/23 00:26 12/31/23 00:26 Labs: Lab Results 12/31/23 Range/Units 00:26 WBC 13.8 H (4.8-10.8) X10*3/uL RBC 3.88 L (4.20-5.50) X10*6/uL Hgb 11.6 L (12.0-16.0) g/dl Hct 33.5 L (37.0-47.0) % MCV 86.3 (80.0-98.0) fL MCH 29.9 (27.0-33.0) pg MCHC 34.6 (31.0-35.0) g/dl RDW 12.8 (11.0-16.0) % Plt Count 293 (160-400) X10*3/uL MPV 10.5 (9.4-12.3) fL Immature Gran % (Auto) 0.4 (0.0-0.4) % Neut % (Auto) 75.4 H (45-73) % Lymph % (Auto) 16.7 L (20-40) % [place] % (Auto) 5.4 (2-11) % Eos % (Auto) 1.7 (0-4) % Baso % (Auto) 0.4 (0-2) % Lymph # (Auto) 2.3 (1.2-4.9) X10*3/uL [place] # (Auto) 0.7 (0.1-1.2) X10*3/uL Eos # (Auto) 0.2 (0.0-0.4) X10*3/uL Baso # (Auto) 0.1 (0.0-0.2) X10*3/uL Abs Immat Gran (auto) 0.05 H (0.00-0.03) X10*3/uL Absolute Neuts (auto) 10.4 H (2.0-8.3) x10*3/uL Absolute Nucleated RBC 0.000 (0.0-0.012) X10*3/uL Nucleated RBC % (auto) 0.0 (0.0-0.2) /100WBC PT 11.4 (11.1-13.3) SEC INR 0.9 (0.9-1.1) APTT 37.2 H (26.0-36.8) SEC Sodium 142 (135-145) mmol/L Potassium 3.2 L (3.3-5.1) mmol/L Chloride 104 (96-108) mmol/L Carbon Dioxide 27 (22-29) mmol/L Anion Gap 14 (12-20) BUN 9 (9-16) mg/dL Creatinine 0.75 (0.5-1.4) mg/dL Estim Creat Clear Calc 75.7 Estimated GFR > 60 Random Glucose 155 H (60-115) mg/dL Calcium 10.4 H D (8.4-10.2) mg/dL Discharge Plan Discharge Clinical Impression: Epistaxis, Hypokalemia Patient Disposition: Home, Self-Care Instructions: Nosebleed (ED), Hypokalemia (ED) Prescriptions: No Action ondansetron 4 mg tablet,disintegrating 4 mg PO Q8H Qty: 14 0RF omeprazole 20 mg capsule,delayed release(DR/EC) 20 mg PO BID Qty: 30 0RF ondansetron 4 mg tablet,disintegrating 4 mg PO Q6-8H PRN (Reason: nausea and vomiting) Qty: 14 0RF ondansetron 4 mg tablet,disintegrating 4 mg PO Q8H PRN (Reason: nausea and vomiting) Qty: 20 0RF Referrals: Sierra Godoy MD [Primary Care Provider] - Print Language: Kosovan
[2023-12-31 02:01] VITALS: BP 151/70; PULSE 63; RESP 14; TEMP 36.6; O2SAT 95
[2023-12-31] MEDS: Potassium Chloride Packet 20 MEQ PACKET 40 MEQ PO (02:01)
[2023-12-31 02:02] VITALS: BP 151/70; PULSE 66; RESP 14; TEMP 36.6; O2SAT 95
== END 2023-12-31 02:05 | disposition home or self-care (01) ==
PROVIDERS: Emergency Provider Emergency Medicine; PCP General Practice
DX: R04.0 Epistaxis (principal); E87.6 Hypokalemia
CPT/HCPCS: 36415; 80048; 85025; 85610; 85730; 99283

== ENCOUNTER 2023-12-31 04:17 | Emergency (ER) | payer MEDICAID, SELFPAY ==
[2023-12-31 04:19] VITALS: BP 173/76; PULSE 73; RESP 18; TEMP 36.8; O2SAT 97; BMI 28.5
--- NOTE | 2023-12-31 05:43 | ED.EPISTAXIS ---
History of Present Illness General Chief Complaint: Epistaxis Stated Complaint: epistaxis Time Seen by Provider: 12/31/23 05:42 Source: patient, family (Spouse) and editor dictionary Mode of arrival: ambulatory Limitations: no limitations History of Present Illness HPI Narrative: 63-year-old female came in for evaluation of right nostril bleed, patient was seen and evaluated in the emergency room last night for similar presentation right nostril bleed while was sleeping home, patient applied externa pressure by pinching the nose was not able to stop the bleed the patient came to the emergency room while in the ED patient stopped bleeding, no nausea, no vomiting, no dizziness, no headache, no chest pain, no shortness of breath. Patient was instructed to consider buying humidifier in the house Related Data Previous Rx's ?Medication ?Instructions ?Recorded ondansetron 4 mg disintegrating 4 mg PO Q6-8H PRN nausea and 03/09/22 tablet vomiting #14 tabs omeprazole 20 mg capsule,delayed 20 mg PO BID gerd #30 caps 04/09/22 release ondansetron 4 mg disintegrating 4 mg PO Q8H #14 tabs 04/09/22 tablet ondansetron 4 mg disintegrating 4 mg PO Q8H PRN nausea and 09/21/23 tablet vomiting #20 tabs Allergies Allergy/AdvReac Type Severity Reaction Status Date / Time No Known Allergies Allergy Verified 12/31/23 04:20 Review of Systems Review of Systems: All other systems are reviewed and are negative Constitutional: Reports as per HPI and Reports no additional constitutional complaints Eyes: Reports as per HPI and Reports no additional eye complaints Reports system reviewed and no additional complaints, except as documented Cardiovascular: Reports as per HPI and Reports no additional cardiovascular complaints Respiratory: Reports as per HPI and Reports no additional respiratory complaints Gastrointestinal: Reports as per HPI and Reports no additional gastrointestinal complaints Genitourinary: Reports no additional female genitourinary complaints Musculoskeletal: Reports no additional musculoskeletal complaints Skin/Breast: Reports system reviewed and no additional complaints, except as docu Psychiatric: Reports no additional psychiatric complaints Endocrine: Reports no additional endocrine complaints Hematologic/Lymphatic: Reports no additional hematologic/lymphatic complaints Allergic/Immunologic: Reports no additional allergic/immunologic complaints Reports system reviewed and no additional complaints, except as documented and Reports Abnormal speech present PMFSH Past Medical History Medical History Atrial fibrillation Asthma GERD (gastroesophageal reflux disease) Diabetes Hyperlipidemia Hypertension Chronic back pain Sciatica Social History Social History Alcohol intake: former Patient Tobacco Use Status: Never used Tobacco Smoked in Last 30 Days: No Use of substances other than those prescribed or required for medical reasons: No Advance Directives: No Advance Directives Information Provided: No Do you have a plan to hurt others: No Plan Patient : No Physical Exam Vital Signs: Vital Signs: Last Vital Signs Temp 98.3 F 12/31/23 04:19 Pulse 73 12/31/23 04:19 Resp 18 12/31/23 04:19 BP 173/76 H 12/31/23 04:19 Pulse Ox 97 12/31/23 04:19 O2 Del Method Room Air 12/31/23 04:19 BMI result Body Mass Index 28.5 Vital signs have been reviewed and appear to be correct. Blood pressure elevated. Heart rate normal. Respiratory rate normal. Temperature normal. Oxygen saturation normal. Appearance: Alert. Oriented X3. No acute distress. Head: Normal external exam. Normocephalic. Atraumatic. No Pacheco signs noted. No raccoon eyes noted Eyes: PERRLA. EOMI. Conjunctiva and sclera normal. Eyelids normal. ENT: No active nosebleed, TM's Normal. Pharynx normal. Uvula midline. Moist mucous membranes. No trismus noted. No drooling noted. No muffled voice noted. Neck: Normal inspection. Neck supple. FROM. No adenopathy. Thyroid Normal. No meningeal signs. No neck mass noted. CVS: Normal heart rate and rhythm. Heart sound normal. No murmurs noted. Pulses normal throughout. Respiratory: No respiratory distress. Painless inspiration. Breath sounds normal. No wheezes/rales/rhonchi noted. Chest nontender. No accessory muscle usage noted or decreased air movement noted. Abdomen: Soft and nontender. Bowel sounds normal in all 4 quadrants. No distention noted. No organomegaly noted. No visible injury noted. Back: No CVA tenderness. Full range of motion noted. Skin: Skin warm and dry. Normal skin color. Normal skin turgor. No rashes/lesions/lacerations noted. Extremities: No lower extremity edema. Extremities exhibit normal range of motion. Extremities nontender. Neuro: Oriented X 3. Cranial nerve exam: II-XII are grossly intact No motor deficit. No sensory deficit. Reflexes normal. Course Reevaluation(s) Reevaluation #1: Recurrent epistaxis, only on aspirin, no AC, labs were unremarkable. No acute intervention is needed this point patient was observed in the ED for 3 hours with no active bleeding. Time: 07:00 Medical Decision Making Differential Diagnosis Differential Diagnoses: The differential diagnosis associated with the presentation includes (Severe anemia, coagulopathy, thrombocytopenia, active epistaxis.) Admission/Observation Consideration of admission/observation: Escalation of care including admission/observation considered Discharge Plan Discharge Clinical Impression: Epistaxis Patient Disposition: Home, Self-Care Instructions: Nosebleed (ED) Additional Instructions: Please consider installing humidifier in your house or portable Prescriptions: No Action ondansetron 4 mg tablet,disintegrating 4 mg PO Q8H Qty: 14 0RF omeprazole 20 mg capsule,delayed release(DR/EC) 20 mg PO BID Qty: 30 0RF ondansetron 4 mg tablet,disintegrating 4 mg PO Q6-8H PRN (Reason: nausea and vomiting) Qty: 14 0RF ondansetron 4 mg tablet,disintegrating 4 mg PO Q8H PRN (Reason: nausea and vomiting) Qty: 20 0RF Referrals: [facility] [Primary Care Provider] - Print Language: Citizen [place]
[2023-12-31 06:52] VITALS: BP 173/76; PULSE 73; RESP 18; TEMP 36.8; O2SAT 97
== END 2023-12-31 06:52 | disposition home or self-care (01) ==
PROVIDERS: Emergency Provider Emergency Medicine
DX: R04.0 Epistaxis (principal)
CPT/HCPCS: 99283; 99284

== ENCOUNTER 2024-01-02 09:32 | Outpatient (REF) | payer MEDICAID, SELFPAY ==
--- NOTE | ~2024-01-02 | MM_ITS ---
EXAMINATION: MM SCREENING DIGITAL BREAST TOMOSYNTHESIS, BILATERAL CLINICAL INFORMATION: Screening. Asymptomatic. COMPARISON: Mammography: This study is compared with prior exams dating back to 2009 TECHNIQUE: Digital breast tomosynthesis is performed in both the craniocaudal and mediolateral oblique views along with computer-aided detection (CAD). Synthesized 2D images are generated from the tomosynthesis. FINDINGS: The breasts are heterogeneously dense, which may obscure small masses (ACR BI-RADS breast composition Category c). There are no significant masses, abnormal calcifications, or other abnormalities. Benign calcifications again seen bilaterally. MM/MM tomosynthesis screening BI IMPRESSION: No mammographic evidence of malignancy. ASSESSMENT: BI-RADS BI-RADS 2 - Benign Findings RECOMMENDATION: Routine annual mammography screening. 1 year F/U This examination should not preclude the clinical evaluation of a suspicious palpable abnormality. This patient's information was entered into a reminder system with a target due date for their next mammogram. Electronically signed by: Arlette Neil MD 01/31/2024 07:36 AM EDT
== END 2024-01-02 09:33 | disposition home or self-care (01) ==
LOC: HO.MAMMO 09:32
PROVIDERS: PCP General Practice; Visit Provider General Practice
DX: Z12.31 Encounter for screening mammogram for malignant neoplasm of breast (principal)
CPT/HCPCS: 77063; 77067

== ENCOUNTER 2024-01-05 11:43 | Emergency (ER) | payer MEDICAID, SELFPAY ==
--- NOTE | 2024-01-05 11:48 | ED.GENADULT ---
HPI - General Adult General Chief complaint: Dizziness Stated complaint: high bp dizziness Time Seen by Provider: 01/05/24 14:26 Related Data Previous Rx's ?Medication ?Instructions ?Recorded ondansetron 4 mg disintegrating 4 mg PO Q6-8H PRN nausea and 03/09/22 tablet vomiting #14 tabs omeprazole 20 mg capsule,delayed 20 mg PO BID gerd #30 caps 04/09/22 release ondansetron 4 mg disintegrating 4 mg PO Q8H #14 tabs 04/09/22 tablet ondansetron 4 mg disintegrating 4 mg PO Q8H PRN nausea and 09/21/23 tablet vomiting #20 tabs Allergies Allergy/AdvReac Type Severity Reaction Status Date / Time No Known Allergies Allergy Verified 01/05/24 11:50 PMFSH Past Medical History Medical History Atrial fibrillation Asthma GERD (gastroesophageal reflux disease) Diabetes Hyperlipidemia Hypertension Chronic back pain Sciatica Social History Social History Alcohol intake: former Patient Tobacco Use Status: Never used Tobacco Advance Directives: No Advance Directives Information Provided: No Do you have a plan to hurt others: No Plan Physical Exam ED Vital Signs: BMI result Body Mass Index 32.7 Course Course Course Narrative: This is a Rapid Medical Exam performed in triage by Teri Hanks PA-C. Full HPI, ROS and PE to be performed by primary ED provider. 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 Admits to dizziness. Admits to taking BP meds (HCTZ & Losartan per med recc). denies recent medication changes, reports compliance with medication. denies CASSIDY or CP PE: BP 186/76, ambulating w/steady gait Plan: EKG, labs Medical Decision Making Lab Data 01/05/24 12:05 01/05/24 12:05 Labs: Lab Results 01/05/24 Range/Units 12:05 WBC 10.2 (4.8-10.8) X10*3/uL RBC 3.96 L (4.20-5.50) X10*6/uL Hgb 12.0 (12.0-16.0) g/dl Hct 35.4 L (37.0-47.0) % MCV 89.4 (80.0-98.0) fL MCH 30.3 (27.0-33.0) pg MCHC 33.9 (31.0-35.0) g/dl RDW 13.0 (11.0-16.0) % Plt Count 323 (160-400) X10*3/uL MPV 10.5 (9.4-12.3) fL Immature Gran % (Auto) 0.4 (0.0-0.4) % Neut % (Auto) 62.7 (45-73) % Lymph % (Auto) 27.5 (20-40) % [place] % (Auto) 6.9 (2-11) % Eos % (Auto) 2.0 (0-4) % Baso % (Auto) 0.5 (0-2) % Lymph # (Auto) 2.8 (1.2-4.9) X10*3/uL [place] # (Auto) 0.7 (0.1-1.2) X10*3/uL Eos # (Auto) 0.2 (0.0-0.4) X10*3/uL Baso # (Auto) 0.1 (0.0-0.2) X10*3/uL Abs Immat Gran (auto) 0.04 H (0.00-0.03) X10*3/uL Absolute Neuts (auto) 6.4 (2.0-8.3) x10*3/uL Absolute Nucleated RBC 0.000 (0.0-0.012) X10*3/uL Nucleated RBC % (auto) 0.0 (0.0-0.2) /100WBC PT 11.9 (11.1-13.3) SEC INR 1.0 (0.9-1.1) Sodium 140 (135-145) mmol/L Potassium 4.4 D (3.3-5.1) mmol/L Chloride 102 (96-108) mmol/L Carbon Dioxide 26 (22-29) mmol/L Anion Gap 16 (12-20) BUN 13 (9-16) mg/dL Creatinine 0.75 (0.5-1.4) mg/dL Estim Creat Clear Calc 75.7 Estimated GFR > 60 Random Glucose 151 H (60-115) mg/dL Calcium 10.1 (8.4-10.2) mg/dL Magnesium 1.8 (1.6-2.6) mg/dL Total Bilirubin 0.2 (0.0-1.0) mg/dL Direct Bilirubin < 0.2 (0.0-0.5) mg/dL AST 21 (5-31) U/L ALT 21 (0-31) U/L Alkaline Phosphatase 108 (39-117) U/L Troponin I High Sens < 2.7 (<3.5-17.0) ng/L Total Protein 7.7 (6.5-8.0) g/dL Albumin 4.3 (3.5-5.0) g/dL Influenza Type A (PCR) NEGATIVE (Negative) Influenza Type B (PCR) NEGATIVE (Negative) RSV RNA Qual (PCR) NEGATIVE (Negative) SARS-CoV-2 RNA (RT-PCR) NEGATIVE (Negative) Discharge Plan Discharge Clinical Impression: Dizziness Patient Disposition: Left W/O Completing Treatment Prescriptions: No Action ondansetron 4 mg tablet,disintegrating 4 mg PO Q8H Qty: 14 0RF omeprazole 20 mg capsule,delayed release(DR/EC) 20 mg PO BID Qty: 30 0RF ondansetron 4 mg tablet,disintegrating 4 mg PO Q6-8H PRN (Reason: nausea and vomiting) Qty: 14 0RF ondansetron 4 mg tablet,disintegrating 4 mg PO Q8H PRN (Reason: nausea and vomiting) Qty: 20 0RF Discharge Date/Time: 01/05/24 14:57
[2024-01-05 11:49] VITALS: BP 186/76; PULSE 72; RESP 18; TEMP 36.7; O2SAT 100; BMI 32.7
--- NOTE | 2024-01-05 11:51 | ECG_ITS ---
Test Reason : hypertension Blood Pressure : / mmHG Vent. Rate : 070 BPM Atrial Rate : 070 BPM P-R Int : 152 ms QRS Dur : 084 ms QT Int : 398 ms P-R-T Axes : 042 -10 000 degrees QTc Int : 429 ms Normal sinus rhythm with sinus arrhythmia Minimal voltage criteria for LVH, may be normal variant ( R in aVL ) Nonspecific T wave abnormality Abnormal ECG When compared with ECG of 21-SEP-2023 01:45, No significant change was found Referred By: Teri Hanks Electronically Signed By:LARA CRESPO
[2024-01-05 12:10] LABS: MANUAL DIFF FLAG NO
[2024-01-05 12:12] LABS: Basophils Absolute Auto 0.1 X10*3/uL (0.0-0.2); Basophils Percent Auto 0.5 % (0-2); Eosinophils Absolute Auto 0.2 X10*3/uL (0.0-0.4); Hematocrit 35.4 % (37.0-47.0); Imm Gran Abs Auto 0.04 X10*3/uL (0.00-0.03); Imm Gran Pct Auto 0.4 % (0.0-0.4); Lymphocytes Absolute Auto 2.8 X10*3/uL (1.2-4.9); Lymphocytes Percent Auto 27.5 % (20-40); Mean Corpuscular HGB Conc 33.9 g/dl (31.0-35.0); Mean Corpuscular Hemoglobin 30.3 pg (27.0-33.0); Mean Corpuscular Volume 89.4 fL (80.0-98.0); Mean Platelet Volume 10.5 fL (9.4-12.3); Monocytes Absolute Auto 0.7 X10*3/uL (0.1-1.2); Monocytes Percent Auto 6.9 % (2-11); Neutrophils Absolute Auto 6.4 x10*3/uL (2.0-8.3); Neutrophils Percent Auto 62.7 % (45-73); Platelet Count 323 X10*3/uL (160-400); Red Blood Count 3.96 X10*6/uL (4.20-5.50); White Blood Count 10.2 X10*3/uL (4.8-10.8)
[2024-01-05 12:17] LABS: Prothrombin Time 11.9 SEC (11.1-13.3)
[2024-01-05 12:43] LABS: Troponin-I High Sensitivity < 2.7 ng/L (<3.5-17.0)
[2024-01-05 12:44] LABS: Alanine Aminotransferase 21 U/L (0-31); Albumin Level 4.3 g/dL (3.5-5.0); Alkaline Phosphatase 108 U/L (39-117); Anion Gap 16 (12-20); Aspartate Amino Transferase 21 U/L (5-31); Bilirubin Direct < 0.2 mg/dL (0.0-0.5); Bilirubin Total 0.2 mg/dL (0.0-1.0); Blood Urea Nitrogen 13 mg/dL (9-16); Calcium 10.1 mg/dL (8.4-10.2); Carbon Dioxide 26 mmol/L (22-29); Chloride 102 mmol/L (96-108); Creatinine Clr Calc Pharmacy 75.7; Estimated Glomerular Filt Rate > 60; Glucose Random 151 mg/dL (60-115); Magnesium 1.8 mg/dL (1.6-2.6); Potassium 4.4 mmol/L (3.3-5.1); Sodium 140 mmol/L (135-145); Total Protein 7.7 g/dL (6.5-8.0)
[2024-01-05 12:51] LABS: Influenza A PCR NEGATIVE (Negative); Influenza B PCR NEGATIVE (Negative); Resp Syncy Virus RNA Qual PCR NEGATIVE (Negative); SARS COV2 PCR INHOUSE NEGATIVE (Negative)
== END 2024-01-05 14:57 | disposition left against medical advice (07) ==
PROVIDERS: Physician Assistant; Emergency Provider Emergency Medicine
DX: R42 Dizziness and giddiness (principal); Z03.818 Encounter for observation for suspected exposure to other biological agents ruled out; E11.9 Type 2 diabetes mellitus without complications; I10 Essential (primary) hypertension; E78.5 Hyperlipidemia, unspecified; J45.909 Unspecified asthma, uncomplicated
CPT/HCPCS: 0241U; 36415; 80048; 80076; 83735; 84484; 85025; 85610; 93005; 99283

== ENCOUNTER 2024-03-07 13:36 | Outpatient (REF) | payer MEDICAID, SELFPAY ==
--- NOTE | ~2024-03-07 | XR_ITS ---
EXAMINATION: XR CHEST CLINICAL INFORMATION: Cough and chills. COMPARISON: March 09, 2022 TECHNIQUE: 2 views of the chest were obtained. FINDINGS: The lungs are moderately expanded. No focal consolidation. No pleural effusion. Cardiac silhouette is unchanged. XR/XR chest 2V IMPRESSION: No acute abnormality. Electronically signed by: Anthony Molina MD 03/07/2024 04:27 PM EDT RP
== END 2024-03-07 13:37 | disposition home or self-care (01) ==
LOC: HO.HHCX 13:36
PROVIDERS: Visit Provider Emergency Medicine
DX: R68.89 Other general symptoms and signs (principal); R05.9 Cough, unspecified
CPT/HCPCS: 71046

== ENCOUNTER 2024-04-15 19:07 | Outpatient (REF) | payer MEDICAID, SELFPAY ==
[2024-04-16 10:33] LABS: HPV 16,18/45 See PAP report
== END 2024-04-15 19:08 | disposition home or self-care (01) ==
LOC: HO.HHCLNP 19:07
PROVIDERS: Visit Provider Advanced Practice Midwife
DX: Z12.4 Encounter for screening for malignant neoplasm of cervix (principal)
CPT/HCPCS: 87624; 88175

== ENCOUNTER 2024-04-29 08:38 | Outpatient (REF) | payer MEDICAID, SELFPAY ==
[2024-04-29 11:44] LABS: MANUAL DIFF FLAG NO
[2024-04-29 11:47] LABS: Basophils Percent Auto 0.2 % (0-2); Eosinophils Absolute Auto 0.2 X10*3/uL (0.0-0.4); Eosinophils Percent Auto 1.6 % (0-4); Hematocrit 37.5 % (37.0-47.0); Hemoglobin 12.2 g/dl (12.0-16.0); Imm Gran Abs Auto 0.04 X10*3/uL (0.00-0.03); Imm Gran Pct Auto 0.4 % (0.0-0.4); Lymphocytes Percent Auto 20.3 % (20-40); Mean Corpuscular HGB Conc 32.5 g/dl (31.0-35.0); Mean Corpuscular Hemoglobin 29.2 pg (27.0-33.0); Mean Corpuscular Volume 89.7 fL (80.0-98.0); Mean Platelet Volume 11.6 fL (9.4-12.3); Monocytes Absolute Auto 0.4 X10*3/uL (0.1-1.2); Monocytes Percent Auto 3.9 % (2-11); Neutrophils Absolute Auto 7.2 x10*3/uL (2.0-8.3); Neutrophils Percent Auto 73.6 % (45-73); Platelet Count 316 X10*3/uL (160-400); Red Blood Count 4.18 X10*6/uL (4.20-5.50); White Blood Count 9.8 X10*3/uL (4.8-10.8)
[2024-04-29 12:38] LABS: Alanine Aminotransferase 25 U/L (0-31); Albumin Level 4.1 g/dL (3.5-5.0); Alkaline Phosphatase 108 U/L (39-117); Anion Gap 11 (12-20); Aspartate Amino Transferase 23 U/L (5-31); Bilirubin Total 0.3 mg/dL (0.0-1.0); Blood Urea Nitrogen 13 mg/dL (9-16); Calcium 9.9 mg/dL (8.4-10.2); Carbon Dioxide 30 mmol/L (22-29); Chloride 102 mmol/L (96-108); Estimated Glomerular Filt Rate > 60; Glucose Random 256 mg/dL (60-115); Potassium 3.9 mmol/L (3.3-5.1); Sodium 139 mmol/L (135-145); Total Protein 7.6 g/dL (6.5-8.0)
--- OUTSIDE RECORDS SUMMARY | 2024-05-01 13:11 | XMS_ITS | Continuity of Care Document ---
Author Organization [facility] Address [address] [address] Phone Care Team Providers Care Plumber Assistant Name Role Phone Daren Rogers DO Unavailable Unavailable Advance Directives Directive Yes / No Effective Date File Name No Information Encounters Encounter Description Practice Location Reason(s) For Visit Diagnoses Date Provider Providers Copied on Encounter [facility], [address], [id number], [place] tel:[phone] [place] No Information 8 Ken Mercedes. [address] [place] [address], [id number] , [place]. [phone] Family History Family Member Type Diagnosis Age At Onset No Information Payers Payer name Insurance type Covered democrat ID Authoriza tion(s) No Information Social History Type Description Quantity Date Captured Comments Sex Female Smoking Status No Information Chief Complaint And Reason For Visit No Information Reason For Referral Reason For Referral No Information History Of Present Illness Encounter Date Complaint History Of Prese nt Illness No Information Functional Status Date Functional Assessmen t No Information Instructions Date Instruction Additional Infor mation No Information Assessments Type Assessment Date No Information Patient Care Teams Name Effective Dates (start - stop) Status Members No Information
== END 2024-04-29 08:39 | disposition home or self-care (01) ==
LOC: HO.HHCL 08:38
PROVIDERS: Visit Provider Registered Nurse
DX: K52.9 Noninfective gastroenteritis and colitis, unspecified (principal)
CPT/HCPCS: 36415; 80053; 85025

== ENCOUNTER 2024-04-30 12:44 | Outpatient (REF) | payer MEDICAID, SELFPAY ==
[2024-05-01 13:45] LABS: Adenovirus F 40/41 Not Detected (Not Detect.); Astrovirus Not Detected (Not Detect.); Campylobacter Not Detected (Not Detect.); Cryptosporidium Not Detected (Not Detect.); Cyclospora cayetanensis Not Detected (Not Detect.); E. coli EAEC Not Detected (Not Detect.); E. coli EPEC Not Detected (Not Detect.); E. coli ETEC Not Detected (Not Detect.); E. coli STEC Not Detected (Not Detect.); Entamoeba histolytica Not Detected (Not Detect.); Giardia lamblia Not Detected (Not Detect.); Norovirus GI/GII Not Detected (Not Detect.); Plesiomonas shigelloides Not Detected (Not Detect.); Rotavirus A Not Detected (Not Detect.); Salmonella Not Detected (Not Detect.); Sapovirus Not Detected (Not Detect.); Shigella sp./EIEC Not Detected (Not Detect.); Vibrio Not Detected (Not Detect.); Vibrio Cholerae Not Detected (Not Detect.); Yersinia enterocolitica Not Detected (Not Detect.)
--- OUTSIDE RECORDS SUMMARY | 2024-05-01 21:15 | XMS_ITS | Continuity of Care Document ---
Author Organization [facility] Address [address] [address] Phone Care Team Providers Care Head Of Art Name Role Phone Daren Rogers DO Unavailable Unavailable Advance Directives Directive Yes / No Effective Date File Name No Information Encounters Encounter Description Practice Location Reason(s) For Visit Diagnoses Date Provider Providers Copied on Encounter [facility], [address], [id number], [place] tel:[phone] [place] No Information 8 Ken Mercedes. [address] [place] [address], [id number] , [place]. [phone] Family History Family Member Type Diagnosis Age At Onset No Information Payers Payer name Insurance type Covered libertarian ID Authoriza tion(s) No Information Social History [...]
== END 2024-04-30 12:45 | disposition home or self-care (01) ==
LOC: HO.HHCLNP 12:44
PROVIDERS: Visit Provider Registered Nurse
DX: K52.9 Noninfective gastroenteritis and colitis, unspecified (principal)
CPT/HCPCS: 87507

== ENCOUNTER 2024-06-06 01:44 | Emergency (ER) | payer MEDICAID, SELFPAY ==
[2024-06-06 02:10] VITALS: BP 162/72; PULSE 67; RESP 18; TEMP 36.4; O2SAT 99; BMI 33.2
--- NOTE | 2024-06-06 02:37 | MHC.EDTECH ---
Patient brought into triage area,labs drawn and sent to lab
[2024-06-06 02:42] LABS: Hematocrit 35.9 % (37.0-47.0); Hemoglobin 12.2 g/dl (12.0-16.0); Mean Corpuscular Hemoglobin 29.9 pg (27.0-33.0); Mean Platelet Volume 10.6 fL (9.4-12.3); Platelet Count 290 X10*3/uL (160-400); Red Blood Count 4.08 X10*6/uL (4.20-5.50); Red Cell Distribution Width 12.6 % (11.0-16.0); White Blood Count 13.7 X10*3/uL (4.8-10.8)
[2024-06-06 02:53] LABS: INTERNATIONAL NORM RATIO 0.9 (0.9-1.1)
[2024-06-06 02:54] LABS: Anion Gap 14 (12-20); Blood Urea Nitrogen 18 mg/dL (9-16); Calcium 9.9 mg/dL (8.4-10.2); Carbon Dioxide 25 mmol/L (22-29); Chloride 104 mmol/L (96-108); Creatinine Clr Calc Pharmacy 74.4; Estimated Glomerular Filt Rate > 60; Glucose Fasting 188 mg/dL (60-99); Potassium 3.9 mmol/L (3.3-5.1); Sodium 139 mmol/L (135-145)
== END 2024-06-06 06:08 | disposition left against medical advice (07) ==
PROVIDERS: Emergency Provider Emergency Medicine Emergency Medical Services
DX: R04.0 Epistaxis (principal); Z79.899 Other long term (current) drug therapy
CPT/HCPCS: 36415; 80048; 85027; 85610; 99281

== ENCOUNTER 2024-07-10 22:47 | Emergency (ER) | payer MEDICAID, SELFPAY ==
[2024-07-10 22:53] VITALS: BP 175/67; PULSE 66; RESP 20; TEMP 36.8; O2SAT 100; BMI 32.9
[2024-07-10 23:12] LABS: MANUAL DIFF FLAG NO
[2024-07-10 23:13] LABS: Basophils Absolute Auto 0.1 X10*3/uL (0.0-0.2); Basophils Percent Auto 0.4 % (0-2); Eosinophils Absolute Auto 0.2 X10*3/uL (0.0-0.4); Eosinophils Percent Auto 1.4 % (0-4); Hemoglobin 12.1 g/dl (12.0-16.0); Imm Gran Abs Auto 0.04 X10*3/uL (0.00-0.03); Imm Gran Pct Auto 0.3 % (0.0-0.4); Lymphocytes Absolute Auto 3.9 X10*3/uL (1.2-4.9); Mean Corpuscular HGB Conc 33.6 g/dl (31.0-35.0); Mean Corpuscular Hemoglobin 29.7 pg (27.0-33.0); Mean Corpuscular Volume 88.5 fL (80.0-98.0); Mean Platelet Volume 10.6 fL (9.4-12.3); Monocytes Absolute Auto 0.8 X10*3/uL (0.1-1.2); Neutrophils Absolute Auto 8.9 x10*3/uL (2.0-8.3); Neutrophils Percent Auto 63.9 % (45-73); Platelet Count 322 X10*3/uL (160-400); Red Blood Count 4.07 X10*6/uL (4.20-5.50); Red Cell Distribution Width 12.7 % (11.0-16.0)
[2024-07-10 23:33] LABS: Alanine Aminotransferase 22 U/L (0-31); Albumin Level 4.2 g/dL (3.5-5.0); Alkaline Phosphatase 111 U/L (39-117); Anion Gap 15 (12-20); Aspartate Amino Transferase 21 U/L (5-31); Bilirubin Total 0.3 mg/dL (0.0-1.0); Blood Urea Nitrogen 18 mg/dL (9-16); Carbon Dioxide 26 mmol/L (22-29); Chloride 102 mmol/L (96-108); Creatinine Clr Calc Pharmacy 70.3; Estimated Glomerular Filt Rate > 60; Glucose Random 170 mg/dL (60-115); Potassium 3.8 mmol/L (3.3-5.1); Sodium 139 mmol/L (135-145); Total Protein 7.8 g/dL (6.5-8.0)
== END 2024-07-11 19:48 | disposition left against medical advice (07) ==
PROVIDERS: Emergency Provider Emergency Medicine
DX: R04.0 Epistaxis (principal)
CPT/HCPCS: 36415; 80053; 85025; 99281

== ENCOUNTER 2024-07-13 21:47 | Emergency (ER) | payer MEDICAID, SELFPAY ==
[2024-07-13 22:10] VITALS: BP 158/62; PULSE 65; RESP 16; TEMP 36.4; O2SAT 100; BMI 32.7
--- NOTE | 2024-07-13 22:15 | ED.EPISTAXIS ---
History of Present Illness General Chief Complaint: General Medical Stated Complaint: nose bleed Time Seen by Provider: 07/14/24 00:01 Source: patient and family Mode of arrival: ambulatory Limitations: no limitations History of Present Illness HPI Narrative: patient comes in the emergency room complaining of multiple episodes of epistaxis throughout the last few months. patient denies any trauma to the nose. Denies any bleeding disorders to her knowledge. Patient states that lately she has been applying saline nasal gel to help moisturize her nostrils. Patient denies any chest pain or shortness of breath, no lightheadedness, no headache. Related Data Previous Rx's ?Medication ?Instructions ?Recorded ondansetron 4 mg disintegrating 4 mg PO Q6-8H PRN nausea and 03/09/22 tablet vomiting #14 tabs omeprazole 20 mg capsule,delayed 20 mg PO BID gerd #30 caps 04/09/22 release ondansetron 4 mg disintegrating 4 mg PO Q8H #14 tabs 04/09/22 tablet ondansetron 4 mg disintegrating 4 mg PO Q8H PRN nausea and 09/21/23 tablet vomiting #20 tabs Allergies Allergy/AdvReac Type Severity Reaction Status Date / Time No Known Allergies Allergy Verified 07/13/24 22:14 Review of Systems Review of Systems: Constitutional : No Weight loss, No Fever, No Chills, No Night Sweats, No Fatigue, No Malaise ENT/Mouth : Complaining of epistaxis, No Hearing loss, No Ear Pain, No Nasal Congestion, No Sinus Pain, No Hoarseness, No sore throat, No Rhinorrhea, No Swallowing Difficulty Eyes: No Eye Pain, No Swelling, No Redness, No Foreign Body, No Discharge, No Vision Changes Cardiovascular : No Chest Pain, No SOB, No Dyspnea on Exertion, No Orthopnea, No Edema, No Palpitations Respiratory : No Cough, No Sputum, No Wheezing, No Smoke Exposure, No Dyspnea Gastrointestinal : No Nausea, No Vomiting, No Diarrhea, No Constipation, No abdominal Pain, No Hematochezia, No Melena Genitourinary : no irregular bleeding, No Dysuria, No Urinary Frequency, No Hematuria, No Urinary Incontinence, No Urgency, No Flank Pain, No Urinary Flow Changes, No Hesitancy Musculoskeletal : No joint pain, No Myalgias, No Joint Swelling Skin : No Skin Lesions, No rash Neuro : No Weakness, No Numbness, No Paresthesias, No Loss of Consciousness, No Dizziness, No Headache Psych : No Anxiety/Panic, No Depression, No SI/HI/AH/VH, No Social Issues, Heme/Lymph: No Bruising, No Bleeding,No Lymphadenopathy Endocrine : No Polyuria, No Polydipsia, No Temperature Intolerance PMF Past Medical History Medical History Atrial fibrillation Asthma GERD (gastroesophageal reflux disease) Diabetes Hyperlipidemia Hypertension Chronic back pain Sciatica Social History Social History Alcohol intake: former Patient Tobacco Use Status: Never used Tobacco Physical Exam Vital Signs: Vital Signs: Last Vital Signs Temp 97.5 F 07/13/24 22:10 Pulse 65 07/13/24 22:10 Resp 16 07/13/24 22:10 BP 158/62 H 07/13/24 22:10 Pulse Ox 100 07/13/24 22:10 O2 Del Method Room Air 07/13/24 22:10 BMI result Body Mass Index 32.7 Const: Other: Appearance: Alert. Oriented X3. No acute distress. Eyes: Pupils equal, round and reactive to light. ENT: Pharynx normal. there is scant amount of blood in the left nostril, and slightly more on the right. Neck: Normal inspection. Neck supple. No lymph nodes noted. No crepitus CVS: Normal heart rate and rhythm. Pulses normal. Normal S1 and S2 Respiratory: No respiratory distress. Breath sounds normal. No Wheezing. No rales Abdomen: Soft and nontender. No rigidity. No distention. Skin: Skin warm and dry. Normal skin color. Normal skin turgor. Extremities: No lower extremity edema. No Lacerations. No Rash Neuro: Oriented X 3. No motor deficit. No sensory deficit. Moving all extremities. No slurred speech. CN 2 through 12 grossly intact Psych: calm, cooperative, normal affect Course Course Course Narrative: 64 yo female with with PMH of migraines, depression, GERD, HTN here with nose bleed for 5 minutes. Denies trauma. She has been seen for epistaxis numerous times in the ED without any intervention needed. She has never seen ENT at this time would hold labs. She uses [facility] at home for her nares. She currently is not bleeding. this is a RAPID medical screening exam the rest of the history and physical exam is to be done by the main provider. Medications Administered Discontinued Medications Generic Name Dose Route Start Last Admin Trade Name Manuel PRN Reason Stop Dose Admin Oxymetazoline HCl 2 spray 07/14/24 00:01 07/14/24 00:05 Oxymetazoline Hcl 0.05 % Nasal 15 Ml [place] NOSTRIL-B 07/14/24 00:02 2 spray ONCE ONE Administration Medical Decision Making Medical Decision Making MDM Narrative: I discussed the physical exam with the patient, patient is nostrils were sprayed with Afrin. The right nostril required a gauze soaked in medication. Bleeding stopped. According to the patient family, they keep their appointment as warm as possible. I discussed with the patient that it would be beneficial if they could get an air moisturizer. The family states that they did have 1 But they have not use, they agreed to start using Discharge Plan Discharge Clinical Impression: Acute anterior epistaxis Patient Disposition: Home, Self-Care Instructions: Nosebleed (ED) Additional Instructions: Please follow-up with your primary care physician tomorrow. If you have any worsening or new symptoms, please return to the emergency room or call 911 Prescriptions: No Action ondansetron 4 mg tablet,disintegrating 4 mg PO Q8H Qty: 14 0RF omeprazole 20 mg capsule,delayed release(DR/EC) 20 mg PO BID Qty: 30 0RF ondansetron 4 mg tablet,disintegrating 4 mg PO Q6-8H PRN (Reason: nausea and vomiting) Qty: 14 0RF ondansetron 4 mg tablet,disintegrating 4 mg PO Q8H PRN (Reason: nausea and vomiting) Qty: 20 0RF Print Language: Greenlandic
[2024-07-14] MEDS: Oxymetazoline HCl 0.05 % Nasal 15 ML SPRAY 2 SPRAY NOSTRIL-B (00:05)
--- OUTSIDE RECORDS SUMMARY | 2024-07-14 00:22 | XMS_ITS | Continuity of Care Document ---
Author Organization [facility] Address [address] [address] Phone Care Team Providers Care Fourdrinier Machine Tender Name Role Phone Daren Rogers DO Unavailable Unavailable Advance Directives Directive Yes / No Effective Date File Name No Information Encounters Encounter Description Practice Location Reason(s) For Visit Diagnoses Date Provider [facility], [address] [place] [address], [id number], [place] tel:[phone] [address] [place] [address] No Information 2017 Ken Mercedes. [address] [place] [address], [id number], [place]. tel:[phone] Family History Family Member Type Diagnosis Age At Onset No Information Payers Payer name Insurance type Covered constitution party ID Authoriza tion(s) No Information Social History Type Description Quantity Date Captured Comments Sex Female Smoking Status No Information Chief Complaint And Reason For Visit No Information History Of Present Illness Encounter Date Complaint History Of Prese nt Illness No Information Instructions Date Instruction Additional Infor mation No Information Assessments Type Assessment Date No Information
[2024-07-14 00:54] VITALS: BP 158/62; PULSE 65; RESP 16; TEMP 36.4; O2SAT 100
== END 2024-07-14 00:55 | disposition home or self-care (01) ==
PROVIDERS: Emergency Provider Emergency Medicine
DX: R04.0 Epistaxis (principal)
CPT/HCPCS: 99282; 99283

== ENCOUNTER 2024-11-12 16:18 | Emergency (ER) | payer MEDICAID, SELFPAY ==
--- NOTE | 2024-11-12 | ECG_ITS ---
Test Reason : SYNCOPE Blood Pressure : */* mmHG Vent. Rate : 67 BPM Atrial Rate : 67 BPM P-R Int : 138 ms QRS Dur : 86 ms QT Int : 414 ms P-R-T Axes : 48 0 36 degrees QTcB Int : 437 ms Normal sinus rhythm Nonspecific ST and T wave abnormality Abnormal ECG When compared with ECG of 05-Jan-2024 11:53, No significant change was found Referred By: Generic ED Physician Electronically Signed By: CINDY MEZA
--- NOTE | ~2024-11-12 | CT_ITS ---
CLINICAL HISTORY: syncope fall LOC CT head without contrast Comparison: None provided Findings: No intra-axial mass, midline shift, hydrocephalus, or acute hemorrhage. No significant atrophy-like change or white matter disease. There is no sinus or mastoid fluid. The orbits are within normal limits. There is no acute fracture. IMPRESSION: 1. No acute intracranial findings. This document has been electronically signed by: Agueda Dozier MD on 11/12/2024 18:08:26
--- NOTE | ~2024-11-12 | XR_ITS ---
CLINICAL HISTORY: syncope 2 view chest x-ray Comparison: None provided Findings: The lungs are clear. Heart size is normal. No acute fracture. IMPRESSION: 1. No acute findings. This document has been electronically signed by: Agueda Dozier MD on 11/12/2024 18:05:11
[2024-11-12 16:26] VITALS: BP 166/68; PULSE 87; RESP 18; TEMP 36.6; O2SAT 98; BMI 31.2
--- NOTE | 2024-11-12 16:31 | PC.NURSE ---
Notified by security patient had been dropped off outside department. Patient found on back inside department entrance doors, minimally responsive. Able to be sat up by security. Patient transferred on to stretcher w/ security assistance. Wheeled inside by charge aide Darci.
[2024-11-12 16:34] LABS: Glucose, Whole Blood 164 mg/dL (60-115)
[2024-11-12 16:42] LABS: MANUAL DIFF FLAG NO
[2024-11-12 16:52] LABS: Basophils Absolute Auto 0.1 X10*3/uL (0.0-0.2); Basophils Percent Auto 0.4 % (0-2); Eosinophils Absolute Auto 0.2 X10*3/uL (0.0-0.4); Eosinophils Percent Auto 1.7 % (0-4); Hematocrit 35.9 % (37.0-47.0); Hemoglobin 12.4 g/dl (12.0-16.0); Imm Gran Abs Auto 0.04 X10*3/uL (0.00-0.03); Imm Gran Pct Auto 0.3 % (0.0-0.4); Lymphocytes Absolute Auto 3.7 X10*3/uL (1.2-4.9); Lymphocytes Percent Auto 26.6 % (20-40); Mean Corpuscular HGB Conc 34.5 g/dl (31.0-35.0); Mean Corpuscular Volume 86.7 fL (80.0-98.0); Mean Platelet Volume 10.7 fL (9.4-12.3); Monocytes Absolute Auto 0.8 X10*3/uL (0.1-1.2); Monocytes Percent Auto 5.9 % (2-11); Neutrophils Percent Auto 65.1 % (45-73); Platelet Count 312 X10*3/uL (160-400); Red Blood Count 4.14 X10*6/uL (4.20-5.50); Red Cell Distribution Width 13.1 % (11.0-16.0); White Blood Count 13.9 X10*3/uL (4.8-10.8)
--- NOTE | 2024-11-12 17:00 | ED_ITS ---
HPI - Weakness General Chief complaint: Syncope Stated complaint: Syncope Time Seen by Provider: 11/12/24 16:59 Source: patient, RN notes reviewed, old records reviewed and network support engineer Mode of arrival: ambulatory Limitations: language barrier History of Present Illness ED Provider: Dr. Laura Ragland HPI Narrative: 64-year-old female with history of atrial fibrillation, asthma, diabetes, hypertension and chronic back presenting with increased fatigue, shortness of breath and weakness that began over the last hour prior to arrival. Admits she was able to ambulate to the emergency department but upon arrival to the waiting room, she became more dizzy and nearly passed out. She did not hit her head or lose consciousness fully. Previously had been on aspirin, but no longer takes any anticoagulation. Admits to a cough productive of white sputum but otherwise denies illness including fevers or chills, chest pain, abdominal pain, bowel changes or urinary complaints. Does not have slight bit of nausea associated with her symptoms today. No reported vomiting. Had been feeling well prior to this. Related Data Previous Rx's ?Medication ?Instructions ?Recorded ondansetron 4 mg disintegrating 4 mg PO Q6-8H PRN naus ea and 03/09/22 tablet vomiting #14 tabs omeprazole 20 mg capsule,delayed 20 mg PO BID gerd #30 caps 04/09/22 release ondansetron 4 mg disintegrating 4 mg PO Q8H #14 tabs 1 06/09/21 tablet ondansetron 4 mg disintegrating 4 mg PO Q8H PRN nausea and 09/21/23 tablet vomiting #20 tabs ondansetron HCl 4 mg tablet 4 mg PO Q8H #10 tabs 11/12 Allergies Allergy/AdvReac Type Severity Reaction Status Date / Time No Known Allergies Allergy Verified 11/12/24 16:28 Review of Systems 2 Review of Systems: Yes all other systems are reviewed and are negative [facility] Past Medical History Attestation statement: The following information was validated with the patient. [facility] Narrative: Hypertension, hyperlipidemia, diabetes Source: old records reviewed Medical History Atrial fibrillation Asthma GERD (gastroesophageal reflux disease) Diabetes Hyperlipidemia Hypertension Chronic back pain Sciatica Social History Social History Alcohol intake: former Patient Tobacco Use Status: Never used Tobacco Smoked in Last 30 Days: No Use of substances other than those prescribed or required for medical reasons: No Advance Directives: No Advance Directives Information Provided: Yes Do you have a plan to hurt others: No Plan Patient : No Physical Exam 2 Vital Signs: Vital Signs: Last Vital Signs Temp 98.0 F 11/12/24 20:10 Pulse 61 11/12/24 20:10 Resp 18 11/12/24 20:10 BP 153/65 H 11/12/24 20:10 Pulse Ox 98 11/12/24 20:10 O2 Del Method Room Air 11/12/24 20:10 BMI result Body Mass Index 31.2 GENERAL: Ill-Appearing, appears uncomfortable. SKIN: Normal skin color for ethnicity, warm, dry, no rashes noted. HEENT: Normocephalic, atraumatic, no stridor, dry mucous membranes, dentition intact, EOMI, PERRLA. NECK: Soft, supple, full ROM, midline structures nontender, no step-offs, no deformities, no lymphadenopathy. CHEST: Heart regular rhythm, no murmurs, symmetric chest rise and fall. PULMONARY: Clear to auscultation bilaterally, diminished at the bases, no labored breathing, no wheezes/rhales/rhonchi. ABDOMINAL: Soft, nondistended, nontender, positive bowel sounds in all quadrants. : Deferred. MUSCULOSKELETAL: Normal tone, full range of motion, no deformities, no peripheral edema. NEURO: Alert and oriented x3, CN II through XII intact, equal strength and sensation bilateral upper and lower extremities, no focal neurologic deficits. PSYCHIATRIC: Flat affect, fluid speech, good eye contact and appropriate demeanor. Medications Administered Discontinued Medications Generic Name Dose Route Start Last Admin Trade Name Freq PRN Reason Stop Dose Admin Ondansetron HCl 4 mg 11/12/24 17:54 11/12/24 18:16 Ondansetron Hcl 4 Mg/2 Ml Vial IVPUSH 11/12/24 17:55 4 mg ONCE ONE Administration Medical Decision Making Medical Decision Making [facility] Narrative: Patient presents today with a chief complaint of dizziness. Differential diagnosis is extremely broad and includes posterior circulation deficits causing vestibular basilar symptoms, anemia, hypovolemia, middle or inner ear patholog including peripheral vertigo, intracranial abnormality such as stroke bleed or tumor, electrolyte abnormalities, among many others. This patient does not have any focal neurological findings at this time. Patient feeling improved after Zofran. She is ambulatory in the emergency department without assistance. Suspect peripheral vertigo. Using shared decision making, plan for discharge home to follow-up with primary care and/or specialist. Patient understands and agrees with plan for discharge. Discharged home in stable condition. Differential Diagnosis As above Admission/Observation Consideration of admission/observation: Escalation of care including admission/observation considered Lab Data MDM Lab Attestation statement: I reviewed the patient's lab results. White blood cell count is slightly elevated as seen previously on labs from June of this year, no shift, slight anemia is baseline. 11/12/24 16:37 11/12/24 16:37 Labs: Lab Results 11/12/24 11/12/24 11/12/24 Range/Units 16:30 16:37 16:38 WBC 13.9 H (4.8-10.8) X10*3/uL RBC 4.14 L (4.20-5.50) X10*6/uL Hgb 12.4 (12.0-16.0) g/dl Hct 35.9 L (37.0-47.0) % MCV 86.7 (80.0-98.0) fL MCH 30.0 (27.0-33.0) pg MCHC 34.5 (31.0-35.0) g/dl RDW 13.1 (11.0-16.0) % Plt Count 312 (160-400) X10*3/uL MPV 10.7 (9.4-12.3) fL Immature Gran % (Auto) 0.3 (0.0-0.4) % Neut % (Auto) 65.1 (45-73) % Lymph % (Auto) 26.6 (20-40) % [place] % (Auto) 5.9 (2-11) % Eos % (Auto) 1.7 (0-4) % Baso % (Auto) 0.4 (0-2) % Lymph # (Auto) 3.7 (1.2-4.9) X10*3/uL [place] # (Auto) 0.8 (0.1-1.2) X10*3/uL Eos # (Auto) 0.2 (0.0-0.4) X10*3/uL Baso # (Auto) 0.1 (0.0-0.2) X10*3/uL Abs Immat Gran (auto) 0.04 H (0.00-0.03) X10*3/uL Absolute Neuts (auto) 9.0 H (2.0-8.3) x10*3/uL Absolute Nucleated RBC 0.000 (0.0-0.012) X10*3/uL Nucleated RBC % (auto) 0.0 (0.0-0.2) /100WBC Sodium 138 (135-145) mmol/L Potassium 4.2 (3.3-5.1) mmol/L Chloride 101 (96-108) mmol/L Carbon Dioxide 24 (22-29) mmol/L Anion Gap 17 (12-20) BUN 15 (9-16) mg/dL Creatinine 0.85 (0.5-1.4) mg/dL Estim Creat Clear Calc 69.4 Estimated GFR > 60 POC Glucose 164 H (60-115) mg/dL Random Glucose 166 H (60-115) mg/dL Calcium 10.0 (8.4-10.2) mg/dL Magnesium 1.6 (1.6-2.6) mg/dL Total Bilirubin 0.2 (0.0-1.0) mg/dL AST 39 H (5-31) U/L ALT 23 (0-31) U/L Alkaline Phosphatase 110 (39-117) U/L Troponin I High Sens < 2.7 (<3.5-17.0) ng/L Total Protein 8.1 H (6.5-8.0) g/dL Albumin 4.2 (3.5-5.0) g/dL Influenza Type A (PCR) NEGATIVE (Negative) Influenza Type B (PCR) NEGATIVE (Negative) RSV RNA Qual (PCR) NEGATIVE (Negative) SARS-CoV-2 RNA (RT-PCR) NEGATIVE (Negative) 11/12/24 Range/Units 18:22 WBC (4.8-10.8) X10*3/uL RBC (4.20-5.50) X10*6/uL Hgb (12.0-16.0) g/dl Hct (37.0-47.0) % MCV (80.0-98.0) fL MCH (27.0-33.0) pg MCHC (31.0-35.0) g/dl RDW (11.0-16.0) % Plt Count (160-400) X10*3/uL MPV (9.4-12.3) fL Immature Gran % (Auto) (0.0-0.4) % Neut % (Auto) (45-73) % Lymph % (Auto) (20-40) % [place] % (Auto) (2-11) % Eos % (Auto) (0-4) % Baso % (Auto) (0-2) % Lymph # (Auto) (1.2-4.9) X10*3/uL [place] # (Auto) (0.1-1.2) X10*3/uL Eos # (Auto) (0.0-0.4) X10*3/uL Baso # (Auto) (0.0-0.2) X10*3/uL Abs Immat Gran (auto) (0.00-0.03) X10*3/uL Absolute Neuts (auto) (2.0-8.3) x10*3/uL Absolute Nucleated RBC (0.0-0.012) X10*3/uL Nucleated RBC % (auto) (0.0-0.2) /100WBC Sodium (135-145) mmol/L Potassium (3.3-5.1) mmol/L Chloride (96-108) mmol/L Carbon Dioxide (22-29) mmol/L Anion Gap (12-20) BUN (9-16) mg/dL Creatinine (0.5-1.4) mg/dL Estim Creat Clear Calc Estimated GFR POC Glucose (60-115) mg/dL Random Glucose (60-115) mg/dL Calcium (8.4-10.2) mg/dL Magnesium (1.6-2.6) mg/dL Total Bilirubin (0.0-1.0) mg/dL AST (5-31) U/L ALT (0-31) U/L Alkaline Phosphatase (39-117) U/L Troponin I High Sens < 2.7 (<3.5-17.0) ng/L Total Protein (6.5-8.0) g/dL Albumin (3.5-5.0) g/dL Influenza Type A (PCR) (Negative) Influenza Type B (PCR) (Negative) RSV RNA Qual (PCR) (Negative) SARS-CoV-2 RNA (RT-PCR) (Negative) Independent Interpretation I performed an independent interpretation of an: EKG Interpretation: My independent interpretation of the ECG reveals normal sinus rhythm with rate of 67, normal axis, normal intervals, no ST elevations or depressions to suggest ischemic changes, relatively unchanged from previous on 01/05/2024. Radiology Impression Discussion of test interpretation with radiology: I have reviewed the radiologist's reading. Radiologist Impression: 2 view chest x-ray Comparison: None provided Findings: The lungs are clear. Heart size is normal. No acute fracture. IMPRESSION: 1. No acute findings. This document has been electronically signed by: Agueda Dozier MD on 11/12/2024 18:05:11 Independent Historian Clinical information obtained from an independent historian. History obtained from or confirmed by: Spouse External Record Review External record reviewed: Outpatient record and Prior outpatient labs Chronic Conditions Patient?s care impacted by: Diabetes and Hypertension Discharge Plan Discharge Clinical Impression: Near syncope, Dizziness Patient Disposition: Home, Self-Care Instructions: Near Syncope (ED) Prescriptions: New ondansetron HCl 4 mg tablet 4 mg PO Q8H Qty: 10 0RF No Action ondansetron 4 mg tablet,disintegrating 4 mg PO Q8H Qty: 14 0RF omeprazole 20 mg capsule,delayed release(DR/EC) 20 mg PO BID Qty: 30 0RF ondansetron 4 mg tablet,disintegrating 4 mg PO Q6-8H PRN (Reason: nausea and vomiting) Qty: 14 0RF ondansetron 4 mg tablet,disintegrating 4 mg PO Q8H PRN (Reason: nausea and vomiting) Qty: 20 0RF Interventions: ED Discharge Assessment Last Done: 11/12/24 20:10 Discharge Date/Time: 11/12/24 20:10 Print Language: Belarusian
[2024-11-12 17:03] LABS: Alanine Aminotransferase 23 U/L (0-31); Albumin Level 4.2 g/dL (3.5-5.0); Alkaline Phosphatase 110 U/L (39-117); Anion Gap 17 (12-20); Aspartate Amino Transferase 39 U/L (5-31); Bilirubin Total 0.2 mg/dL (0.0-1.0); Blood Urea Nitrogen 15 mg/dL (9-16); Carbon Dioxide 24 mmol/L (22-29); Chloride 101 mmol/L (96-108); Creatinine Clr Calc Pharmacy 69.4; Estimated Glomerular Filt Rate > 60; Glucose Random 166 mg/dL (60-115); Magnesium 1.6 mg/dL (1.6-2.6); Potassium 4.2 mmol/L (3.3-5.1); Sodium 138 mmol/L (135-145); Total Protein 8.1 g/dL (6.5-8.0)
[2024-11-12 17:07] LABS: Troponin-I High Sensitivity < 2.7 ng/L (<3.5-17.0)
[2024-11-12 17:32] LABS: Influenza A PCR NEGATIVE (Negative); Influenza B PCR NEGATIVE (Negative); Resp Syncy Virus RNA Qual PCR NEGATIVE (Negative); SARS COV2 PCR INHOUSE NEGATIVE (Negative)
[2024-11-12] MEDS: ondansetron HCL 4 MG/2 ML VIAL IVPUSH (18:16)
[2024-11-12 18:22] VITALS: BP 164/58; PULSE 68; RESP 18; O2SAT 100
[2024-11-12 18:28] VITALS: O2SAT 97
[2024-11-12 18:51] LABS: Troponin-I High Sensitivity < 2.7 ng/L (<3.5-17.0)
--- OUTSIDE RECORDS SUMMARY | 2024-11-12 19:13 | XMS_ITS | Encounter Summary ---
Author Organization [facility] Address [address] [place] [address] Care Team Providers Care Power Wheelchair Mechanic Name Role Phone Sierra Godoy MD Primary Care Provider [phone] Reason for Visit * Reason Comments Med Refill Encounter Details Date Type Department Care Team (Late st Contact Info) Description 02/11/2023 Refill [facility] [address] [place], [place] [id number] Name, MD Alf [address] [place], [place] [phone] Social History Tobacco Use Types Packs/Day Years Used Date Smoking Tobacco: Never Smokeless Tobacco: Never Alcohol Use Standard Drinks/Week Comments Never 0 (1 standard drink = 0.6 oz pur e alcohol) Depression Answer Date Recorded Patient Health Questionnaire-2 Score 0 10/07/2022 Comments Unknown Sex and Gender Information Value Date Recorded Sex Assigned at Female 03/21/2022 10:15 AM EDT Legal Sex Female 10:15 AM EDT Gender Identity Female 10/10/2022 6:06 AM EDT Sexual Orientation Straight 10/10/2022 6: 06 AM EDT documented as of this encounter Plan of Treatment Not on file documented as of this encounter Visit Diagnoses Not on filedocumented in this encounter Care Teams Power Wheelchair Mechanic Relationship Specialty Start Date End Date Sierra Godoy MD [address] [place] [address] [phone] PCP - General Family Medicine 01/20/20 documented as of this encounter
[2024-11-12 20:06] VITALS: BP 153/65; PULSE 61; RESP 18; TEMP 36.7; O2SAT 98
[2024-11-12 20:10] VITALS: BP 153/65; PULSE 61; RESP 18; TEMP 36.7; O2SAT 98
== END 2024-11-12 20:10 | disposition home or self-care (01) ==
PROVIDERS: Emergency Provider Emergency Medicine; PCP General Practice
DX: R55 Syncope and collapse (principal); R42 Dizziness and giddiness; R05.9 Cough, unspecified; Z03.818 Encounter for observation for suspected exposure to other biological agents ruled out; E11.9 Type 2 diabetes mellitus without complications; I10 Essential (primary) hypertension; E78.5 Hyperlipidemia, unspecified; J45.909 Unspecified asthma, uncomplicated; Z79.899 Other long term (current) drug therapy
CPT/HCPCS: 0241U; 36415; 70450; 71046; 80053; 82947; 83735; 84484; 85025; 93005; 96374; 99284; 99285; J2405

== ENCOUNTER → 2024-11-12 16:32 | Outpatient (BNV) | payer MEDICAID, SELFPAY | PROVIDERS: Emergency Provider Emergency Medicine; PCP General Practice; Visit Provider Internal Medicine | DX: R94.31 Abnormal electrocardiogram [ECG] [EKG] (principal); R55 Syncope and collapse | CPT/HCPCS: 93010 ==

== ENCOUNTER → 2024-11-12 17:03 | Outpatient (BNV) | payer MEDICAID, SELFPAY | PROVIDERS: Emergency Provider Emergency Medicine; PCP General Practice; Visit Provider Radiology Diagnostic Radiology | DX: R55 Syncope and collapse (principal) | CPT/HCPCS: 70450; 71046 ==

== ENCOUNTER 2024-11-23 15:30 | Emergency (ER) | payer MEDICAID, SELFPAY ==
--- NOTE | 2024-11-23 15:40 | ED_ITS ---
HPI - General Adult General Chief complaint: Epistaxis Stated complaint: nose bleed Time Seen by Provider: 11/23/24 17:21 Source: patient Mode of arrival: ambulatory Limitations: no limitations History of Present Illness ED Provider: HPI narrative: Patient's history of recurrent epistaxis with normal blood counts does have recurrent nasal congestion with epistaxis started after nasal swab was done for the COVID testing 4 days ago patient has been here multiple times in the past blood workup is negative no black stools no ecchymosis no bleeding from any other site Related Data Previous Rx's ?Medication ?Instructions ?Recorded ondansetron 4 mg disintegrating 4 mg PO Q6-8H PRN naus ea and 03/09/22 tablet vomiting #14 tabs omeprazole 20 mg capsule,delayed 20 mg PO BID gerd #30 caps 04/09/22 release ondansetron 4 mg disintegrating 4 mg PO Q8H #14 tabs 1 06/09/21 tablet ondansetron 4 mg disintegrating 4 mg PO Q8H PRN nausea and 09/21/23 tablet vomiting #20 tabs ondansetron HCl 4 mg tablet 4 mg PO Q8H #10 tabs 11/12 amoxicillin 875 mg-potassium 1 tab PO BID #20 tabs 10/13 clavulanate 125 mg tablet Allergies Allergy/AdvReac Type Severity Reaction Status Date / Time No Known Allergies Allergy Verified 11/23/24 15:43 Review of Systems Review of Systems: Yes all other systems are reviewed and are negative PMFSH Past Medical History Medical History Atrial fibrillation Asthma GERD (gastroesophageal reflux disease) Diabetes Hyperlipidemia Hypertension Chronic back pain Sciatica Social History Social History Alcohol intake: former Patient Tobacco Use Status: Never used Tobacco Advance Directives: No Advance Directives Information Provided: No Physical Exam ED Vital Signs: Vital Signs - 24 hr 11/23/24 15:41 11/23/24 16:57 Temperature 97.7 F 98.3 F Pulse Rate 81 80 Respiratory Rate 18 16 Blood Pressure 153/69 H 158/84 H Pulse Oximetry 98 Oxygen Delivery Method Room Air Room Air BMI result Body Mass Index 32.9 Appearance: Alert. Oriented X3. No acute distress. Eyes: no pallor or icterus ENT: Pharynx normal Oral Mucosa moist tympanic membrane intact no erythema, no active bleeding at this time prominent blood vessels in the right nostril anterior septum Neck: Normal inspection. Neck supple. CVS: Normal heart rate and rhythm. Pulses normal. Respiratory: No respiratory distress. Equal air entry bilateral, no wheezing/rales/rhonchi Abd: soft, not tender Skin: Skin warm and dry. Normal skin color. Normal skin turgor. Extremities: No lower extremity edema, no calf tenderness Neuro: Oriented X 3. Course Course Course Narrative: RME performed by Wendie Duenas PA-C. Patient is a 64 year old assigned female at presenting to the emergency department with a nose bleed. Detailed physical exam and review of systems are deferred to the pullman conductor. Patient placed back in the waiting room pending room availability. Procedures Epistaxis Control Time Out Performed: Yes Nostril: Yes right Direct inspection: Yes anterior source identified Clots removed by: Yes blowing nose Epistaxis treatment: Yes silver nitrate cautery Results of treatment: Yes bleeding controlled Complications: Yes none Medical Decision Making Medical Decision Making MDM Narrative: Patient has recurrent epistaxis especially when she gets congested prominent blood vessels noted at right anterior septum area which was cauterized no active bleeding at this time will discharge patient home on Augmentin advised not to spray Afrin in the nostril Discharge Plan Discharge Clinical Impression: Epistaxis, Sinusitis Patient Disposition: Home, Self-Care Instructions: Nosebleed (ED), Rhinosinusitis (DC) Additional Instructions: Take antibiotic as prescribed Avoid sprain Afrin Use humidified air Local care as advised Prescriptions: New amoxicillin-pot clavulanate 875-125 mg tablet 1 tab PO BID Qty: 20 0RF No Action ondansetron 4 mg tablet,disintegrating 4 mg PO Q8H Qty: 14 0RF omeprazole 20 mg capsule,delayed release(DR/EC) 20 mg PO BID Qty: 30 0RF ondansetron 4 mg tablet,disintegrating 4 mg PO Q6-8H PRN (Reason: nausea and vomiting) Qty: 14 0RF ondansetron HCl 4 mg tablet 4 mg PO Q8H Qty: 10 0RF ondansetron 4 mg tablet,disintegrating 4 mg PO Q8H PRN (Reason: nausea and vomiting) Qty: 20 0RF Print Language: Taiwanese
[2024-11-23 15:41] VITALS: BP 153/69; PULSE 81; RESP 18; TEMP 36.5; BMI 32.9
[2024-11-23 16:57] VITALS: BP 158/84; PULSE 80; RESP 16; TEMP 36.8; O2SAT 98
[2024-11-23] MEDS: Silver Nitrate Applicator STICK..EA. 1 APPL TOPICAL (18:38)
[2024-11-23 18:59] VITALS: BP 149/78; PULSE 78; RESP 16; TEMP 36.8; O2SAT 98
== END 2024-11-23 19:02 | disposition home or self-care (01) ==
PROVIDERS: Emergency Provider Internal Medicine; PCP General Practice
DX: R04.0 Epistaxis (principal); R09.81 Nasal congestion; J32.9 Chronic sinusitis, unspecified
CPT/HCPCS: 30901; 99284

== ENCOUNTER 2025-01-07 08:39 | Outpatient (REF) | payer MEDICAID, SELFPAY ==
--- OUTSIDE RECORDS SUMMARY | 2018-04-05 08:47 | XMS_ITS | Continuity of Care Document ---
Author Organization [facility] Address [address] [address] Phone Care Team Providers Care Wreath Maker Name Role Phone Daren Rogers DO Unavailable Unavailable Advance Directives Directive Yes / No Effective Date File Name No Information Encounters Encounter Description Practice Location Reason(s) For Visit Diagnoses Date Provider [facility], [address] [place] [address], [id number], [place] tel:[phone] [address] [place] [address] No Information 2017 Ken Mercedes. [address] [place] [address], [id number], [place]. tel:[phone] Family History Family Member Type Diagnosis Age At Onset No Information Payers Payer name Insurance type Covered alliance party ID Authoriza tion(s) No Information Social History Type Description Quantity Date Captured Comments Sex Female Smoking Status No Information Chief Complaint And Reason For Visit No Information History Of Present Illness Encounter Date Complaint History Of Prese nt Illness No Information Instructions Date Instruction Additional Infor mation No Information Assessments Type Assessment Date No Information
--- NOTE | ~2025-01-07 | MM_ITS ---
EXAMINATION: MM SCREENING DIGITAL BREAST TOMOSYNTHESIS, BILATERAL CLINICAL INFORMATION: Screening. Asymptomatic. COMPARISON: Mammography: Comparison is made with available priors TECHNIQUE: Digital breast mammography with tomosynthesis is performed in both the craniocaudal and mediolateral oblique views along with computer-aided detection (CAD). FINDINGS: The breasts are heterogeneously dense, which may obscure small masses (ACR BI-RADS breast composition Category c). There are no significant masses, abnormal calcifications, or other abnormalities. MM/MM tomosynthesis screening BI IMPRESSION: No mammographic evidence of malignancy. ASSESSMENT: BI-RADS BI-RADS 1 - Negative RECOMMENDATION: Routine annual mammography screening. 1 year F/U This examination should not preclude the clinical evaluation of a suspicious palpable abnormality. This patient's information was entered into a reminder system with a target due date for their next mammogram. Electronically signed by: Karina Boykin DO 01/08/2025 02:53 PM EDT
--- OUTSIDE RECORDS SUMMARY | 2025-01-07 09:22 | XMS_ITS | Encounter Summary ---
Author Organization [employer] Address [address] [facility] [address] [place] [address] Care Team Providers Care Sheet Rock Installer Name Role Phone Sierra Godoy MD Primary Care Provider [phone] Reason for Visit * Reason Comments Med Refill Encounter Details Date Type Department Care Team (Late Contact Info) Description 07/25/2022 Refill [facility] [address] [place] [address] Earnestine Lainez MD [address] [place] [id number] Gastroesophageal reflux disease, unspecified whether esophagitis present Social History Tobacco Use Types Packs/Day Years Used Date Smoking Tobacco: Never Assessed Comments Unknown Sex and Gender Information Value Date Recorded Sex Assigned at Female 03/21/2022 10:15 AM EDT Legal Sex Female 10:15 AM EDT Gender Identity Female 10/10/2022 6:06 AM EDT Sexual Orientation Straight 10/10/2022 6: 06 AM EDT documented as of this encounter Plan of Treatment Upcoming Encounters Date Type Department Care Team (Late Contact Info) Description 01/28/2025 1:00 PM EDT Office Visit [facility] [address] [place] [address] Yulissa Urena, OD [address] [place] [address] 03/28/2025 10:30 AM EST Office Visit [facility] [address] [place] [address] Sierra Godoy MD [address] [place] [address] documented as of this encounter Visit Diagnoses Diagnosis Gastroesophageal reflux disease, unspecified whether esophagitis present documented in this encounter Care Teams Sheet Rock Installer Relationship Specialty Start Date End Date Sierra Godoy MD [address] [place] [address] PCP - General Family Medicine 01/20/20 documented as of this encounter
== END 2025-01-07 08:40 | disposition home or self-care (01) ==
LOC: HO.MAMMO 08:39
PROVIDERS: PCP General Practice; Visit Provider General Practice
DX: Z12.31 Encounter for screening mammogram for malignant neoplasm of breast (principal)
CPT/HCPCS: 77063; 77067

== ENCOUNTER → 2025-01-07 09:15 | Outpatient (BNV) | payer MEDICAID, SELFPAY | PROVIDERS: PCP General Practice; Visit Provider Internal Medicine | DX: Z12.31 Encounter for screening mammogram for malignant neoplasm of breast (principal) | CPT/HCPCS: 77063; 77067 ==

== ENCOUNTER 2025-03-28 11:12 | Outpatient (REF) | payer MEDICAID, SELFPAY ==
--- OUTSIDE RECORDS SUMMARY | 2018-04-05 07:47 | XMS_ITS | Continuity of Care Document ---
Author Organization [facility] Address [address] [address] Phone Care Team Providers Care Software Quality Engineer Name Role Phone Daren Rogers DO Unavailable Unavailable Advance Directives Directive Yes / No Effective Date File Name No Information Encounters Encounter Description Practice Location Reason(s) For Visit Diagnoses Date Provider [facility], [address] [place] [address], [id number], [place] tel:[phone] [address] [place] [address] No Information 2017 Ken Mercedes. [address] [place] [address], [id number], [place]. tel:[phone] Family History Family Member Type Diagnosis Age At Onset No Information Payers Payer name Insurance type Covered republican ID Authoriza tion(s) No Information Social History Type Description Quantity Date Captured Comments Sex Female Smoking Status No Information Chief Complaint And Reason For Visit No Information History Of Present Illness Encounter Date Complaint History Of Prese nt Illness No Information Instructions Date Instruction Additional Infor mation No Information Assessments Type Assessment Date No Information
--- OUTSIDE RECORDS SUMMARY | 2025-03-28 10:30 | XMS_ITS | Encounter Summary ---
Author Organization [employer] Address [address] [facility] [address] [place] [address] Care Team Providers Care Enrollment Counselor Name Role Phone Sierra Godoy MD Primary Care Provider [phone] Reason for Visit * Reason Comments Annual Exam Yearly exam Encounter Details Date Type Department Care Team ([facility] st Contact Info) Description 03/28/2025 10:30 AM EST Office Visit [facility] [address] [place], [place] [phone] Sierra Godoy MD [address] [place] [address] Essential hypertension (Primary Dx); Type 2 diabetes mellitus without complication, without long-term current use of insulin (HCC); Primary hypertension; Paroxysmal atrial fibrillation (CMS/HCC) (HCC); Epistaxis; Class 1 obesity with serious comorbidity and body mass index (BMI) of 32.0 to 32.9 in adult, unspecified obesity type; Other iron deficiency anemia; Mild persistent asthma without complication; Recurrent major depressive disorder, in partial remission (CMS/HCC); Screening for colon cancer; Gastroesophageal reflux disease, unspecified whether esophagitis present; Type 2 diabetes mellitus with diabetic neuropathy, without long-term current use of insulin (HCC); Oral ulcer; Encounter for immunization Social History Tobacco Use Types Packs/Day Years Used Date Smoking Tobacco: Never Passive Smoke Exposure: Never Smokeless Tobacco: Never Alcohol Use Standard Drinks/Week Comments Never 0 (1 standard drink = 0.6 oz pur e alcohol) Depression Answer Date Recorded Patient Health Questionnaire-9 Score 2 03/28/2025 Patient Health Questionnaire-9 Score 2 03/28/2025 Last PHQ-9: Questionnaire Data Not on file 1 05/28/2024 Housing Stability Answer Date Recorded What is your housing situation today? I have elvira bartlett 10/10/[address] you li ve. Do you have problems with any of the following? None of the above 10/10/2023 Food Insecurity Answer Date Recorded Within the past 12 months, y ou worried that your food would run out before you got money to buy more: Never True 10/10/2023 Within the past 12 months,th e food you bought just didn't last and you didn't have enough money to get more: Never True Transportation Answer Date Recorded In the past 12 months, has l ack of transportation kept you from medical appts, meetings, work or from getting things needed for daily living? No 10/10/2023 Utilities Answer Date Recorded In the past 12 months, has t he electric, gas, oil or water company threatened to shut off services in your home? No 10/10/2023 Depression Answer Date Recorded Patient Health Questionnaire-2 Score 2 03/28/2025 Internet Access Answer Date Recorded Internet Access Q1 Yes 07/05/2024 Internet Access Q2 Not on file 07/05/2024 Comments No Sex and Gender Information Value Date Recorded Sex Assigned at Female 03/21/2022 10:15 AM EDT Legal Sex Female 10:15 AM EDT Gender Identity Female 10/10/2022 6:06 AM EDT Sexual Orientation Straight 10/10/2022 6: 06 AM EDT documented as of this encounter Last Filed Vital Signs Vital Sign Reading Time Taken Comments Blood Pressure 128/70 03/28/2025 10:21 AM EST Pulse 64 03/28/2025 10:21 AM EST Temperature 36.4 C (97.5 F) 03/28/2025 10:21 AM EST Respiratory Rate 20 03/28/2025 10:21 AM EST Oxygen Saturation 98% 03/28/2025 10:21 AM EST Inhaled Oxygen Concentration - - Weight 81.6 kg (180 lb) 03/28/2025 10:21 AM EST Height 157.5 cm (5' 2 ) 03/28/2025 10:21 AM EST Body Mass Index 32.92 03/28/2025 10:21 AM EST documented in this encounter Functional Status * Over the past 2 weeks, how often have you been bothered by any of the following problems? Question Answer Date of Assessment Author Patient Health Questionnaire-2 Score 2 11/2024 11:07 AM Fariha Chang MA * Little interest or pleasure in doing things Answer Date of Assessment Author More than half the days 03/28/2025 11:07 AM Fariha Chang MA * Feeling down, depressed, or hopeless Answer Date of Assessment Author Not at all 03/28/2025 11:07 AM Jorge Chang [place] * Trouble falling or staying asleep, or sleeping too much Answer Date of Assessment Author Not at all 03/28/2025 11:07 AM Jorge Chang MA * Feeling tired or having little energy Answer Date of Assessment Author Not at all 03/28/2025 11:07 AM Jorge Chang MA * Poor appetite or overeating Answer Date of Assessment Author Not at all 03/28/2025 11:07 AM Jorge Chang MA * Feeling bad about yourself - or that you are a failure or have let yourself or your family down Answer Date of Assessment Author Not at all 03/28/2025 11:07 AM Jorge Chang MA * Trouble concentrating on things, such as reading the newspaper or watching television Answer Date of Assessment Author Not at all 03/28/2025 11:07 AM Jorge Chang MA * Moving or speaking so slowly that other people could have noticed? Or the opposite - being so fidgety or restless that you have been moving around a lot more than usual. Answer Date of Assessment Author Not at all 03/28/2025 11:07 AM Jorge Chang MA * Thoughts that you would be better off or hurting yourself in some way Answer Date of Assessment Author Not at all 03/28/2025 11:07 AM Jorge Chang MA * Patient Health Questionnaire-9 Score Answer Date of Assessment Author 2 03/28/2025 11:07 AM Jorge Chang MA * How difficult have these problems made it for you to do your work, take care of things at home, or get along with other people? Answer Date of Assessment Author Not difficult at all 03/28/2025 11:07 AM Fariha Suárez MA documented as of this encounter Plan of Treatment Scheduled Orders Name Type Priority Associated Diagnoses Orde r Schedule Lipid Panel, Standard Lab Routine Type 2 diabetes mellitus without complication, without long-term current use of insulin (HCC) Expected: 03/28/2025 (Approximate), Expires: 03/28/2026 Hepatitis C Antibody with Reflex to HCV, RNA, Quantitative, Real-Time PCR Lab Routine Type 2 diabetes mellitus without complication, without long-term current use of insulin (HCC) Expected: 03/28/2025, Expires: 03/28/2026 Albumin, Random Urine W/Creatinine Lab Routine Type 2 diabetes mellitus without complication, without long-term current use of insulin (HCC) Expected: 03/28/2025 (Approximate), Expires: 03/28/2026 Comprehensive Metabolic Panel Lab Routine Type 2 diabetes mellitus without complication, without long-term current use of insulin (HCC) Expected: 03/28/2025 (Approximate), Expires: 03/28/2026 Cologuard colon cancer screening Lab Routine Screening for colon cancer Ordered: 03/28/2025 Herpes Simplex Virus, Type 1 and 2 DNA, Qualitative, Real-Time PCR Lab Routine Oral ulcer Expected: 03/28/2025 (Approximate), Expires: 03/28/2026 documented as of this encounter Procedures Procedure Name Priority Date/Time Associated Diagnosis Comments POCT GLYCATED HEMOGLOBIN, TOTAL Routine 03/28/2025 10:28 AM EST Type 2 diabetes mellitus without complication, without long-term current use of insulin (HCC) POCT GLUCOSE Routine 03/28/2025 10:21 AM EST Type 2 diabetes mellitus without complication, without long-term current use of insulin (HCC) documented in this encounter Results * (ABNORMAL) POCT Hgb A1c (03/28/2025 10:28 AM EST) Hemoglobin A1C 6.2(A) 4.0 - 5.7 % QC Media Lot # [id number] Lot# Expiration Date Blood 03/28/2025 10:2 8 AM EST Sierra Godoy MD POINT OF CARE TEST ENTER/EDIT ORDERABLES Final Result * POCT Glucose (03/28/2025 10:21 AM EST) Glucose Blood, POC 115 60 - 200 mg/dL QC Media Lot # [id number] Lot# Expiration Date 31,126 Blood Capillary blood specimen / Unknown 03/28/2025 10:21 AM EST Sierra Godoy MD POINT OF CARE TEST ENTER/EDIT ORDERABLES Final Result documented in this encounter Visit Diagnoses Diagnosis Essential hypertension- Primary Unspecified essential hypertension Type 2 diabetes mellitus without complication, without long-term current use of insulin (HCC) Primary hypertension Unspecified essential hypertension Paroxysmal atrial fibrillation (CMS/HCC) (HCC) Atrial fibrillation Epistaxis Class 1 obesity with serious comorbidity and body mass index (BMI) of 32.0 to 32.9 in adult, unspecified obesity type Other iron deficiency anemia Mild persistent asthma without complication Recurrent major depressive disorder, in partial remission (CMS/HCC) Screening for colon cancer Special screening for malignant neoplasms, colon Gastroesophageal reflux disease, unspecified whether esophagitis present Type 2 diabetes mellitus with diabetic neuropathy, without long-term current use of insulin (HCC) Oral ulcer Other and unspecified diseases of the oral soft tissues Encounter for immunization documented in this encounter Additional Health Concerns Assessment Noted Time PHQ-9 Depression Total Score: 2 03/28/20 25 11:07 AM EST documented as of this encounter Care Teams Enrollment Counselor Relationship Specialty Start Date End Date Sierra Godoy MD [address] [place] [id number] PCP - General Family Medicine 01/20/20 documented as of this encounter
--- OUTSIDE RECORDS SUMMARY | 2025-03-28 13:32 | XMS_ITS | Clinical Summary ---
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 90 tablet 3 025 2025 Active clotrimazole (Lotrimin) 1 % cream Apply topically at bedtime. 30 g 5 025 2024 Active propranolol LA (Inderal LA) 120 MG 24 hr capsuleIndication s:Primary hypertension TAKE 2 CAPSULES BY MOUTH EVERY DAY. DO NOT CRUSH, CHEW OR SPLIT. 180 capsule 3 Active omeprazole (PriLOSEC) [address] capsuleIndication s:Gastroesophagea l reflux disease, unspecified whether esophagitis present Take 1 capsule (20 mg) by mouth before breakfast. Do not crush or chew. 180 capsule 3 Active metFORMIN XR (Glucophage-XR) 500 MG 24 hr tabletIndications :Type 2 diabetes mellitus without complication, without long-term current use of insulin (HCC) TAKE 2 TABLETS BY MOUTH WITH EVENING MEAL. DO NOT CRUSH, CHEW OR SPLIT. 180 tablet 3 Active hydroCHLOROthiazi de (HYDRODiuril) 25 MG tablet TAKE 1 TABLET BY MOUTH EVERY MORNING 90 tablet 3 Active glucose blood (FREESTYLE LITE) test stripIndications: Type 2 diabetes mellitus with diabetic neuropathy, without long-term current use of insulin (HCC) Take blood sugar once a day 100 strip 11 Active atorvastatin (Lipitor) 80 MG tabletIndications :Type 2 diabetes mellitus without complication, without long-term current use of insulin (HCC) TAKE 1 TABLET BY MOUTH AT BEDTIME 90 tablet 3 Active Diclofenac Sodium (Voltaren) 1 % gel Apply 1 Application topically Once per day. 100 g 3 Active metFORMIN XR (Glucophage-XR) 500 MG 24 hr tabletIndications :Type 2 diabetes mellitus without complication, without long-term current use of insulin (HCC) Take 2 tablets (1,000 mg) by mouth with evening meal. Do not crush, chew, or split. 180 tablet 3 024 2024 Discontinued propranolol LA (Inderal LA) 120 MG 24 hr capsuleIndication s:Primary hypertension Take 2 capsules (240 mg) by mouth Once per day. Do not crush, chew, or split.TOME 2 CAPSULAS POR VIA ORAL [place] 180 capsule 3 2024 Discontinued(R eorder (will not trigger notification to Pharmacy)) valsartan (Diovan) 160 MG tabletIndications :Primary hypertension Take 1 tablet (160 mg) by mouth Once per day. 90 tablet 3 024 2024 Discontinued(R eorder (will not trigger notification to Pharmacy)) FREESTYLE LITE test stripIndications: Type 2 diabetes mellitus with diabetic neuropathy, without long-term current use of insulin ([facility]) USE TO TEST 3 TIMES DAILY IN THE MORNING, EVENING, AND AT BEDTIME 100 strip 11 024 2024 Discontinued(R eorder (will not trigger notification to Pharmacy)) hydroCHLOROthiazi de (HYDRODiuril) 25 MG tablet TAKE 1 TABLET BY MOUTH EVERY MORNING 90 tablet 3 2024 Discontinued(R eorder (will not trigger notification to Pharmacy)) omeprazole (PriLOSEC) [address] capsuleIndication s:Gastroesophagea l reflux disease, unspecified whether esophagitis present TAKE 1 CAPSULE BY MOUTH BEFORE BREAKFAST AND BEFORE EVENING MEAL. DO NOT CRUSH OR CHEW. 180 capsule 3 025 2024 Discontinued(R eorder (will not trigger notification to Pharmacy)) Ketotifen Fumarate 0.035 % solutionIndicatio ns:Allergic conjunctivitis of both eyes Administer 1 drop into affected eye(s) 2 times daily. 5 mL 11 025 2024 Discontinued(T herapy completed) atorvastatin (Lipitor) 80 MG tabletIndications :Type 2 diabetes mellitus without complication, without long-term current use of insulin (HCC) TAKE 1 TABLET BY MOUTH AT BEDTIME 90 tablet 3 025 2024 Discontinued(R eorder (will not trigger notification to Pharmacy)) metFORMIN XR (Glucophage-XR) 500 MG 24 hr tabletIndications :Type 2 diabetes mellitus without complication, without long-term current use of insulin (HCC) TAKE 2 TABLETS BY MOUTH WITH EVENING MEAL. DO NOT CRUSH, CHEW OR SPLIT. 180 tablet 3 025 2024 Discontinued(R eorder (will not trigger notification to Pharmacy)) propranolol LA (Inderal LA) 120 MG 24 hr capsuleIndication s:Primary hypertension TAKE 2 CAPSULES BY MOUTH EVERY DAY. DO NOT CRUSH, CHEW OR SPLIT. 180 capsule 3 025 2024 Discontinued(R eorder (will not trigger notification to Pharmacy)) Active Problems Problem Noted Date Diagnosed Date Colon cancer screening 01/29/2024 Type 2 diabetes mellitus wit hout complication, without long-term current use of insulin 01/29/2024 Assessment & Plan (07/19/2024 9:58 AM EST): Current A1C: 6.8, continue Metformin 1000mg XR daily and Trulicity 0.75mg BMP: Lab Results Component Value Date CREATININE 0.75 12/31/2023 CREATININE 0.79 04/09/2022 CREATININE 0.79 04/09/2022 K 3.2 (L) 12/31/2023 MICROALBUR 36.0 10/20/2023 Microalbumin: Foot Exam: Complete at follow up Eye Exam: Discuss at follow up Lipid panel: ASCVD: The 10-year ASCVD risk score (Shelly JORDAN, et al., 2019) is: 17.2% Values used to calculate the score: Age: 63 years Sex: Female Is Non- : No Diabetic: Yes Tobacco smoker: No Systolic Blood Pressure: 157 mmHg Is BP treated: Yes HDL Cholesterol: 36 mg/dL Total Cholesterol: 148 mg/dL Statin: Yes ASA: Yes HARISH/ARB: Yes Encouraged regular aerobic exercise for improved glycemic control Encouraged daily foot checks Encouraged lean protein snacks and to avoid foods high in sugar and simple carbohydrates Treatment Goals: A1c goal: <7% FBG goal: <130 2 hour post prandial goal: <180 Assessment & Plan (01/29/2024 10:29 AM EDT): Current A1C: 6.8, continue Metformin 1000mg XR daily and Trulicity 0.75mg BMP: Lab Results Component Value Date CREATININE 0.75 12/31/2023 CREATININE 0.79 04/09/2022 CREATININE 0.79 04/09/2022 K 3.2 (L) 12/31/2023 MICROALBUR 36.0 10/20/2023 Microalbumin: Foot Exam: Complete at follow up Eye Exam: Discuss at follow up Lipid panel: ASCVD: The 10-year ASCVD risk score (Shelly JORDAN, et al., 2019) is: 17.2% Values used to calculate the score: Age: 63 years Sex: Female Is Non- : No Diabetic: Yes Tobacco smoker: No Systolic Blood Pressure: 157 mmHg Is BP treated: Yes HDL Cholesterol: 36 mg/dL Total Cholesterol: 148 mg/dL Statin: Yes ASA: Yes HARISH/ARB: Yes Encouraged regular aerobic exercise for improved glycemic control Encouraged daily foot checks Encouraged lean protein snacks and to avoid foods high in sugar and simple carbohydrates Treatment Goals: A1c goal: <7% FBG goal: <130 2 hour post prandial goal: <180 Syncope, vasovagal 10/20/2023 Sciatica 10/20/2023 Migraine headache 10/20/2023 Hyperlipidemia 10/20/2023 Epistaxis 10/20/2023 Chronic back pain 10/20/2023 Benign liver cyst 10/20/2023 Atrial fibrillation (CMS/HCC) 10/20/2023 Bilateral hand swelling 10/10/2022 Dyspepsia 04/29/2022 Assessment & Plan (04/29/2022 12:03 PM EST): It seems to be related to GERD? Gastric dysmotility? Meal related? Recommended to Decrease carbs and fat intake, increase exercise specially after meals and weight reduction. Use simethicone prn abd bloating She will hold the following meds for 1w: Atorvastatin, Vitamin D, Iron, MVI and ASA. She will restart one by one each week thereafter. Recent Hb on 03/2022 was wnl, I told her she doesn't need to restart Iron and should fu with PCP for other supplements or vitamins if needed. Agreed to have colonoscopy, refer to GI. Gastroesophageal reflux disease 04/29/2022 Assessment & Plan (10/10/2022 6:26 AM EDT): Omeprazole bid Avoid fatty and high carb food Do not lie down after eating Wean PPI if possible Assessment & Plan (04/29/2022 12:03 PM EST): Omeprazole bid Avoid fatty and high carb food Counseled re weight reduction, ambulation after meals Vitamin D deficiency 11/27/2014 Allergic rhinitis 10/01/2013 Dyslipidemia 03/20/2013 Obesity 03/20/2013 Asthma 07/03/2012 Anemia 11/09/2011 Recurrent major depressive disorder, in partial remission 11/09/2011 Assessment & Plan (10/10/2022 6:26 AM EDT): Continue Prozac 40mg daily Essential hypertension 11/09/2011 Assessment & Plan (07/19/2024 9:58 AM EST): At goal at home <140/90, Is consistent about taking her medications Maintenance: valsartan, hydrochlorothiazide, propranolol BMP: Cr 0.79 Lipid Panel: LDL 89 ASCVD Risk: > 10% on statin EKG: Obtain baseline at f/u - Aerobic exercise to reduce BP. Initial goal of 30 min walk 3-5x/week. Increase as tolerated. - low-sodium diet (goal: <2g/day) and heart healthy diet such as DASH to reduce BP and prevent ASCVD. - Home BP monitoring 1-2 x day with goal of <140/90. - Seek immediate medical attention for chest pain, palpitations, SOB, syncope, or sudden changes in mental status. - Do not change or discontinue current prescriptions without first consulting health care provider Assessment & Plan (01/29/2024 10:30 AM EDT): At goal at home <140/90, slightly elevated here, could be due to illness. Is consistent about taking her medications Maintenance: valsartan, hydrochlorothiazide, propranolol BMP: Cr 0.79 Lipid Panel: LDL 89 ASCVD Risk: > 10% on statin EKG: Obtain baseline at f/u - Aerobic exercise to reduce BP. Initial goal of 30 min walk 3-5x/week. Increase as tolerated. - low-sodium diet (goal: <2g/day) and heart healthy diet such as DASH to reduce BP and prevent ASCVD. - Home BP monitoring 1-2 x day with goal of <140/90. - Seek immediate medical attention for chest pain, palpitations, SOB, syncope, or sudden changes in mental status. - Do not change or discontinue current prescriptions without first consulting health care provider Assessment & Plan (10/23/2023 9:25 PM EDT): At goal at home <140/90 Maintenance: valsartan, hydrochlorothiazide, propranolol BMP: Cr 0.79 Lipid Panel: LDL 89 ASCVD Risk: > 10% on statin EKG: Obtain baseline at f/u - Aerobic exercise to reduce BP. Initial goal of 30 min walk 3-5x/week. Increase as tolerated. - low-sodium diet (goal: <2g/day) and heart healthy diet such as DASH to reduce BP and prevent ASCVD. - Home BP monitoring 1-2 x day with goal of <140/90. - Seek immediate medical attention for chest pain, palpitations, SOB, syncope, or sudden changes in mental status. - Do not change or discontinue current prescriptions without first consulting health care provider Assessment & Plan (10/10/2022 6:25 AM EDT): At goal at home <140/90 Maintenance: valsartan, hydrochlorothiazide, propranolol BMP: Cr 0.79 Lipid Panel: LDL 89 ASCVD Risk: > 10% on statin EKG: Obtain baseline at f/u - Aerobic exercise to reduce BP. Initial goal of 30 min walk 3-5x/week. Increase as tolerated. - low-sodium diet (goal: <2g/day) and heart healthy diet such as DASH to reduce BP and prevent ASCVD. - Home BP monitoring 1-2 x day with goal of <140/90. - Seek immediate medical attention for chest pain, palpitations, SOB, syncope, or sudden changes in mental status. - Do not change or discontinue current prescriptions without first consulting health care provider Resolved Problems Problem Noted Date Diagnosed Date Resolved Date Type 2 diabetes mellitus wit h hyperglycemia, without long-term current use of insulin 10/23/2023 01/29/2024 Assessment & Plan (01/29/2024 10:26 AM EDT): Current A1c: 6.8, continue Metformin 1000mg XR daily and Trulicity 0.75 BMP: Lab Results Component Value Date CREATININE 0.75 12/31/2023 CREATININE 0.79 04/09/2022 CREATININE 0.79 04/09/2022 K 3.2 (L) 12/31/2023 MICROALBUR 36.0 10/20/2023 Microalbumin: Foot Exam: Complete at follow up Eye Exam: Discuss at follow up Lipid panel: ASCVD: The 10-year ASCVD risk score (Shelly JORDAN, et al., 2019) is: 17.2% Values used to calculate the score: Age: 63 years Sex: Female Is Non- : No Diabetic: Yes Tobacco smoker: No Systolic Blood Pressure: 157 mmHg Is BP treated: Yes HDL Cholesterol: 36 mg/dL Total Cholesterol: 148 mg/dL Statin: Yes ASA: Yes HARISH/ARB: Yes Encouraged regular aerobic exercise for improved glycemic control Encouraged daily foot checks Encouraged lean protein snacks and to avoid foods high in sugar and simple carbohydrates Treatment Goals: A1c goal: <7% FBG goal: <130 2 hour post prandial goal: <180 COVID-19 10/30/2020 03/28/2025 Encounters Date Type Department Care Team Description 03/28/2025 10:30 AM EST Office Visit [facility] MEDICINE [address] [place] [phone] Sierra Godoy MD Essential hypertension (Primary Dx); Type 2 diabetes [...] insulin (HCC); Oral ulcer; Encounter for immunization 03/28/2025 Travel 03/27/2025 Telephone [facility] MEDICINE [address] [place] [phone] Sierra Godoy MD chart prep 03/21/2025 Patient Outreach [facility] MED[facility] [address] [place] [address] Sierra Godoy MD Pre-visit Planning ([facility] screening is completed) 03/20/2025 Outside Procedure [facility] OPTOMETRY [address] [place] [address] Romel, Yulissa, OD Presbyopia (Primary Dx) 03/17/2025 9:00 AM EDT Office Visit [facility] OPTOMETRY [address] [place] [address] Romel, Yulissa, OD Regular astigmatism of both eyes (Primary Dx) 03/10/2025 Refill [facility] [address] [place] [address] Sierra Godoy MD Primary hypertension 03/08/2025 Refill [facility] [address] [place] [address] Sierra Godoy MD Type 2 diabetes mellitus without complication, without long-term current use of insulin ([facility]); Primary hypertension 02/11/2025 Refill [facility] [address] [place] [address] Sierra Godoy MD Type 2 diabetes mellitus without complication, without long-term current use of insulin (CMS/HCC) 01/29/2025 9:30 AM EDT Office Visit [facility] OPTOMETRY [address] [place] [address] Romel, Yulissa, OD Diabetes type 2, no ocular involvement (CMS/HCC) (Primary Dx); 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; Allergic conjunctivitis of both eyes; Dry eye; Early cataracts, bilateral; Bilateral degenerative progressive high myopia 01/29/2025 Travel 01/29/2025 Refill [facility] MED[facility] [address] [place] [address] Sierra Godoy MD Gastroesophageal reflux disease, unspecified whether esophagitis present 01/07/2025 Orders Only [facility] MED[facility] [address] [place] [address] Sierra Godoy MD from Last 3 Months Immunizations Immunization Administration Dates Next Due DTaP 02/11/2011 Influenza injectable quadriv alent IIV4 with preservative 03/29/2018,04/19/2016,03/19/2015 Influenza injectable quadriv alent preservative free 07/23/2021,02/20/2019 Influenza, High Dose Seasona l, Preservative Free 03/28/2025 Influenza, IIV3, injectable 04/11/2014, 1 Influenza, Split (incl. marianna fied surface antigen) 04/12/2013,03/16/2012 Pneumococcal Polysaccharide PPSV23 12/14/2011 Pneumococcal, Unspecified 12/14/2011 TD (adult), 2 Lf tetanus tox oid, preservative free, adsorbed 07/23/2021 Tdap 02/11/2011 Family History Medical History Relation Name Comments Breast cancer Sister 1 Breast cancer Sister 2 Relation Name Status Comments Sister 1 Sister 2 Alive Social History Tobacco Use Types Packs/Day Years Used Date Smoking Tobacco: Never Passive Smoke Exposure: Never Smokeless Tobacco: Never Tobacco Cessation:Counseling Given: Not Answered Alcohol Use Standard Drinks/Week Comments Never 0 [...] Orientation Straight 10/10/2022 6: 06 AM EDT Last Filed Vital Signs Vital Sign Reading [...] Mass Index 32.92 03/28/2025 10:21 AM EST Plan of Treatment Health Maintenance Due Date Last Done Comments CT Colonography 1960 Colonoscopy 1960 Colorectal Cancer Screening 1960 FIT DNA/Cologuard 1960 FIT 1960 FOBT 1960 Sigmoidoscopy 1960 Alcohol/Substance Use Screening 1972 Hepatitis C Screening 1978 Hepatitis A Vaccines (1 of 2 - Risk 2-dose series) 1979 Zoster Vaccines (1 of 2) 2010 Pneumococcal Vaccine: 50+ Years (2 of 2 - PCV) 12/13/2012 12/14/2011, 12/14/2011 Hepatitis B Vaccines (1 of 3 - Risk 3-dose series) 2020 RSV Patients and Patients Aged 60 years or older (1 - Risk 60-74 years 1-dose series) 2020 Diabetes: Foot Exam 10/19/2024 10/20/2023 Diabetes: Urine Protein Screening 10/19/2024 10/20/2023, 08/09/2021, 06/01/2020, Additional history exists Lipid Panel 10/19/2024 10/20/2023, 07/21, 06/01/2020 COVID-19 Vaccine ( season) 2025 02/09/2021, 01/19/2021 SDOH Screening 07/05/2025 07/05/2024 Diabetes: Hemoglobin A1C 09/25/2025 025, 07/19/2024, 01/29/2024, Additional history exists Mammogram 01/07/2026 01/07/2025, 12/20, 12/15/2022, Additional history exists Depression Screening 03/28/2026 03/28/2025, 03/28/20 Tobacco Screening 03/28/2026 03/28/2025 Eye Exam 01/29/2027 01/29/2025, 01/20, 01/29/2025, Additional history exists Cervical Cancer Screening 04/15/2029 HPV/Cotest 04/15/2029 04/15/2024, 04/10/2019 Pap Smear 04/15/2029 04/15/2024 DTaP/Tdap/Td Vaccines (4 - Td or Tdap) 07/24/2031 07/23/2021, 02/11/2011, 02/11/2011 Influenza Vaccine Completed 03/28/2025, , 02/20/2019, Additional history exists HIB Vaccines Aged Out No longer eligi ble based on patient's age to complete this topic HPV Vaccines Aged Out No longer eligi ble based on patient's age to complete this topic IPV Vaccines Aged Out No longer eligi ble based on patient's age to complete this topic Meningococcal B Vaccine Aged Out No l onger eligible based on patient's age to complete this topic Meningococcal Vaccine Aged Out No lj alise eligible based on patient's age to complete this topic RSV under 20 months Aged Out No longe r eligible based on patient's age to complete this topic Rotavirus Vaccines Aged Out No longer eligible based on patient's age to complete this topic Procedures Procedure Name Priority Date/Time Associated Diagnosis Comments POCT GLYCATED HEMOGLOBIN, TOTAL Routine 03/28/2025 10:28 AM EST Type 2 diabetes mellitus without complication, without long-term current use of insulin (HCC) POCT GLUCOSE Routine 03/28/2025 10:21 AM EST Type 2 diabetes mellitus without complication, without long-term current use of insulin ([facility]) OCT, RETINA - OU - BOTH EYES Routine 01/29/2025 11:46 AM EDT Bilateral degenerative progressive high myopia BI MAMMOGRAM SCREENING TOMOSYNTHESIS BILATERAL Routine 01/07/2025 9:00 AM EDT PAP SMEAR Routine 04/15/2024 9:27 AM EST Cervical cancer screening HPV MRNA E6/E7 REFLEX TO HPV 16, 18/45 Routine 04/15/2024 12:00 AM EST ALBUMIN, RANDOM URINE W/CREATININE Routine 10/20/2023 10:43 AM EDT Type 2 diabetes mellitus without complication, without long-term current use of insulin ([facility]) LIPID PANEL, STANDARD Routine 10/20/2023 10:43 AM EDT Type 2 diabetes mellitus without complication, without long-term current use of insulin ([facility]/HCC) from Last 3 Months or Most Recently Relevant to Health Maintenance Results * (ABNORMAL) POCT Hgb A1c (03/28/2025 [...] Media Lot # [id number] Lot# Expiration Date Blood Capillary blood specimen / Unknown 03/28/2025 10:21 AM EST Sierra Godoy MD POINT OF CARE TEST ENTER/EDIT ORDERABLES Final Result * OCT, Retina - OU - Both Eyes (01/29/2025 11:46 AM EDT) Narrative Yulissa Urena, OD - 02/03/2025 2:15 PM EDT Images from the original result were not included. Right Eye Quality was good. Scan locations included subfoveal. Progression has been stable. Left Eye Quality was good. Scan locations included subfoveal. Progression has been stable. 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 Unremarkable left eye. Will monitor at her next exam. Yulissa Urena OD OPHTH TOMOGRAPHY Final Result * BI Mammogram Screening Tomosynthesis Bilateral (01/07/2025 9:00 AM EDT) Anatomical Region Laterality Modality Breast Bilateral Mammography 01/07/2025 9:00 AM EDT Narrative 01/08/2025 2:56 PM EDT [facility] [address] [place], [place] [address] Mammography Report Signed Patient: Vaughn UngermadisonAndreina MR#: [id number] : 1960 Acct:[id number] Age/Sex: 64 / F ADM Date: 01/07/25 Loc: MAMMO Attending Dr: Sierra Godoy MD Ordering Physician: Sierra Godoy Results: 1Negative Date of Service: 01/07/25 Follow Up: 1 Year From Orig ina Mammogram Procedure(s): MM tomosynthesis screening BI Accession Number(s): [id number] cc: Sierra Godoy EXAMINATION: MM SCREENING DIGITAL BREAST TOMOSYNTHESIS, BILATERAL CLINICAL INFORMATION: Screening. Asymptomatic. COMPARISON: Mammography: Comparison is made with available priors TECHNIQUE: Digital breast mammography with tomosynthesis is performed in both the craniocaudal and mediolateral oblique views along with computer-aided detection (CAD). FINDINGS: The breasts are heterogeneously dense, which may obscure small masses (ACR BI-RADS breast composition Category c). There are no significant masses, abnormal calcifications, or other abnormalities. MM/MM tomosynthesis screening BI IMPRESSION: No mammographic evidence of malignancy. ASSESSMENT: BI-RADS BI-RADS 1 - Negative RECOMMENDATION: Routine annual mammography screening. 1 year F/U This examination should not preclude the clinical evaluation of a suspicious palpable abnormality. This patient's information was entered into a reminder system with a target due date for their next mammogram. Electronically signed by: Karina Boykin DO 01/08/2025 02:53 PM EDT Dictated By: Karina Boykin DO Signed By: <Electronically signed by Karina Boykin DO in OV> 01/08/25 1453 DD/ 0900 TD/TT: 01/07/25 0920 Machinist Outside: Procedure Note Donotuseinterpreter, Image - 01/08/2025 [facility] [address] [place] [address] Mammography Report Signed Patient: Andreina Ortega EMR#: [id number] : 1960Acct:[id number] Age/Sex: 64 / FADM Date: 01/07/25 Loc: MAMMO Attending Dr: Sierra Godoy MD Ordering Physician: Julio Godoyults: 1Negative Date of Service: 01/07/25Follow Up: 1 Year From Orig ina Mammogram Procedure(s): MM tomosynthesis screening BI Accession Number(s): [id number] cc: Sierra Godoy EXAMINATION: MM SCREENING DIGITAL BREAST TOMOSYNTHESIS, BILATERAL CLINICAL INFORMATION: Screening. Asymptomatic. COMPARISON: Mammography: Comparison is made with available priors TECHNIQUE: Digital breast mammography with tomosynthesis is performed in both the craniocaudal and mediolateral oblique views along with computer-aided detection (CAD). FINDINGS: The breasts are heterogeneously dense, which may obscure small masses (ACR BI-RADS breast composition Category c). There are no significant masses, abnormal calcifications, or other abnormalities. MM/MM tomosynthesis screening BI IMPRESSION: No mammographic evidence of malignancy. ASSESSMENT: BI-RADS BI-RADS 1 - Negative RECOMMENDATION: Routine annual mammography screening. 1 year F/U This examination should not preclude the clinical evaluation of a suspicious palpable abnormality. This patient's information was entered into a reminder system with a target due date for their next mammogram. Electronically signed by: Karina Boykin DO 01/08/2025 02:53 PM EDT Dictated By: Karina Boykin DO Signed By: <Electronically signed by Karina Boykin DO in OV> 01/08/25 1453 DD/ 0900 TD/TT: 01/07/25 0920 Machinist Outside: Sierra Godoy MD [facility] [place] PROCEDURES Final Result * Pap Smear (04/15/2024 9:27 AM EST) Swab Cervix uteri structure / Unknown 04/15/2024 9:27 AM EST 04/16/2024 9:50 AM EST [facility] LABS - 04/23/2024 10:06 AM EST ----- ------- Name: Andreina Ortega Age/Sex: 64/F : 1960 Unit#: [id number] Attend Dr: REGINALDO [facility] Re04/15/24 Status: DEP [facility]F [facility] ----- ------- SPEC : [id number] RECD: 04/16/24 STATUS: MILTON HANNA NUM: [id number] ISABELL: 04/15/[address] [facility] [address]: REGINALDO MO ENTERED: 04/16/24-1001 SP TYPE: Pap Smr OTHR DR: ORDERED: Pap Smear Interpretation Satisfactory for evaluation. Negative for intraepithelial lesion or malignancy. HPV High Risk: Negative HPV Genotyping 16: Negative HPV Genotyping 18: Negative Clinical Information LMP: Postmenopausal Previous PAP test: 2019, Unknown findings Material Received ThinPrep-Cervical ----- ------- Signed (signature on file) MYKEL Coffman ([facility]) 04/23/24 1006 ----- ------- END OF REPORT Reginaldo OTOOLE LAB CYTOLOGY ORDERABLES F inal Result Performing Organization Address [facility] Co de Phone Number [facility] [address] [place] [phone] * HPV mRNA E6/E7 w/Reflex to HPV Genotypes 16, 18/45 (04/15/2024 12:00 AM EST) Belle Sandoval MD LAB CYTOLOGY ORDERABLES F inal Result Performing Organization Address [facility] Co de Phone Number [facility] [address] [place] [address] [phone] * Albumin, Random Urine W/Creatinine (10/20/2023 10:43 AM EDT) Creatinine, Urine 227.22 mg/dL [facility] Microalbumin Urine 36.0 mg/L [facility] Microalbum Creatinine Ratio Ur 15.8 <30 ug/mg cr [facility] Comment:Albumin/Creatinine R atio Reference Ranges: Normal: < 30 ug/mg creatinine Microalbuminuria: 30 - 300 ug/mg creatinineClinical Albuminuria: > 300 ug/mg creatinine Urine (Urine, Random) 10/20/2023 10:43 AM EDT 10/20/2023 11:18 AM EDT Sierra Godoy MD LAB URINE ORDERABLES Final Res ult Performing Organization Address [facility] Co de Phone Number [facility] [address] [place] [address] [phone] * (ABNORMAL) Lipid Panel, Standard (10/20/2023 10:43 AM EDT) Triglycerides 96 <150 mg/dL [facility] Comment:Desirable Triglyceri de: less than 150 mg/dLBorderline High Triglyceride 150-199 mg/dLHigh Triglyceride: 200-499 mg/dLVery High Triglyceride: greater than or equal to 5OO mg/dL Cholesterol 148 <200 mg/dL [facility] Comment:Desirable Cholestero l: less than 200 mg/dLBorderline High Cholesterol: 200-239 mg/dLHigh Cholesterol: greater than 239 mg/dL LDL Cholesterol Calculated 93 <100 mg/dL [facility] Comment:Desirable LDL: less than 100 mg/dLNear Optimal/Above Optimal LDL: 110- 129 mg/dLBorderline High LDL: 130-159 mg/dLHigh LDL: 160-189 mg/dLVery High LDL: greater than or equal to 190 mg/dL HDL Cholesterol 36(L) >40 mg/dL [facility] Comment:Desirable HDL: great er than 40 mg/dL Note: This HDL assay may give artificially low results in patients with liver disease. Blood Venous blood specimen / Unknown 10/20/2023 10:43 AM EDT 10/20/2023 11:16 AM EDT us Sierra Godoy MD LAB BLOOD ORDERABLES Final Res ult [facility] [address] [place] [phone] from Last 3 Months or Most Recently Relevant to Health Maintenance Insurance [facility] C3 Care Teams Building Construction Estimator Relationship Specialty Start Date End Date Sierra Godoy MD [address] [place] [phone] PCP - General Family Medicine 01/20/20
--- OUTSIDE RECORDS SUMMARY | 2025-03-28 13:32 | XMS_ITS | Encounter Summary ---
Author Organization [employer] Address [address] [facility] [address]t [place] [address] Care Team Providers Care Barber Name Role Phone Sierra Godoy MD Primary Care Provider [phone] Reason for Visit * Reason Comments Med Refill Encounter Details Date Type Department Care Team ([facility] st Contact Info) Description 06/07/2023 Refill [facility] MEDICINE [address] [place] [address] Hesham Jarrell MD [address] [place], [place] [phone] Social History Tobacco Use Types Packs/Day Years Used Date Smoking Tobacco: Never Smokeless Tobacco: Never Alcohol Use Standard Drinks/Week Comments Never 0 (1 standard drink = 0.6 oz pur e alcohol) Housing Stability Answer Date Recorded What is your housing situation today? I have elvira bartlett 03/07/[address] you li ve. Do you have problems with any of the following? None of the above 03/07/2023 Food Insecurity Answer Date Recorded Within the past 12 months, y ou worried that your food would run out before you got money to buy more: Never True 03/07/2023 Within the past 12 months,th e food you bought just didn't last and you didn't have enough money to get more: Never True Transportation Answer Date Recorded In the past 12 months, has l ack of transportation kept you from medical appts, meetings, work or from getting things needed for daily living? Yes, it has kept me from medical appointments or getting medications. 02/26/2023 Utilities Answer Date Recorded In the past 12 months, has t he electric, gas, oil or water company threatened to shut off services in your home? No 03/07/2023 Depression Answer Date Recorded Patient Health Questionnaire-2 [...] on filedocumented in this encounter Care Teams Barber Relationship Specialty Start Date End Date Sierra Godoy MD [address] [place] [phone] PCP - General Family Medicine 01/20/20 documented as of this encounter
--- OUTSIDE RECORDS SUMMARY | 2025-03-28 13:32 | XMS_ITS | Encounter Summary ---
Author Organization [employer] Address [address] [facility] [address] [place] [address] Care Team Providers Care Chef De Froid Name Role Phone Sierra Godoy MD Primary Care Provider [phone] Encounter Details Date Type Department Care Team (Late st Contact Info) Description 09/17/2024 Orders Only [facility] PEDS [address] [place] [address] Julia Zendejas Social History Tobacco Use Types Packs/Day Years Used Date Smoking Tobacco: Never Passive Smoke Exposure: Never Smokeless Tobacco: Never Alcohol Use Standard Drinks/Week Comments Never 0 (1 standard drink = 0.6 oz pur e alcohol) Housing Stability Answer Date Recorded What is your housing situation today? I have elvira tri 10/10/[address] you li [...] Date Recorded Patient Health Questionnaire-2 Score 0 10/20/2023 Internet Access Answer Date Recorded Internet Access [...] on file documented as of this encounter Procedures Procedure Name Priority Date/Time Associated Diagnosis Comments HPV MRNA E6/E7 REFLEX TO HPV 16, 18/45 Routine 04/15/2024 12:00 AM EST documented in this encounter Results * HPV mRNA E6/E7 w/Reflex to HPV Genotypes 16, 18/45 (04/15/2024 12:00 AM EST) us Historical Provider LAB CYTOLOGY ORDERABLES F inal Result Performing Organization Address City/State/[facility] Co de Phone Number [facility] [address] [place] [phone] documented in this encounter Visit Diagnoses Not on filedocumented in this encounter Care Teams Chef De Froid Relationship Specialty Start Date End Date Sierra Godoy MD [address] [place] [address] PCP - General Family Medicine 01/20/20 documented as of this encounter
--- OUTSIDE RECORDS SUMMARY | 2025-03-28 13:32 | XMS_ITS | Encounter Summary ---
Author Organization [employer] Address [address] [facility] 7[address] [place] [address] Care Team Providers Care Business Travel Consultant Name Role Phone Sierra Godoy MD Primary Care Provider [phone] Reason for Visit * Reason Comments Med Refill Encounter Details Date Type Department Care Team (Late st Contact Info) Description 02/11/2023 Refill [facility] WALK[facility] CENTER [address] [place], [place] [phone] Name, MD Alf [address] [place], [place] [phone] Social History Tobacco Use Types Packs/Day Years [...] on filedocumented in this encounter Care Teams Business Travel Consultant Relationship Specialty Start Date End Date Sierra Godoy MD [address] [place] [address] [phone] PCP - General Family Medicine 01/20/20 documented as of this encounter
--- OUTSIDE RECORDS SUMMARY | 2025-03-28 13:32 | XMS_ITS | Encounter Summary ---
Author Organization [employer] Address [address] [facility] 7t [place] [address] Care Team Providers Care Information Consultant Name Role Phone Sierra Godoy MD Primary Care Provider [phone] Reason for Visit * Reason Onset Date Comments chart prep 03/27/2025 Encounter Details Date Type Department Care Team ([facility] st Contact Info) Description 03/27/2025 Telephone [facility] MEDICINE [address] [place] [address] Sierra Godoy MD [address] [place] [address] chart prep Social History Tobacco Use Types Packs/Day Years [...] AM EDT documented as of this encounter Miscellaneous Notes * Telephone Encounter - Xiao Burgess [place] - 03/27/2025 12:28 PM EST Chart Prep Labs: done Images: done Referrals: complete Vaccines due: PCV20, Hep B, Hep A, RSV, and Zoster Screenings: colonoscopy Overdue care gaps: A1c, Glucose, PHQ-9, and CHERI-7 documented in this encounter Plan of Treatment Not on file documented as of this encounter Visit Diagnoses Not on filedocumented in this encounter Care Teams Information Consultant Relationship Specialty Start Date End Date Sierra Godoy MD [address] [place] [phone] PCP - General Family Medicine 01/20/20 documented as of this encounter
--- OUTSIDE RECORDS SUMMARY | 2025-03-28 13:32 | XMS_ITS | Encounter Summary ---
Author Organization [employer] Address [address] [facility] 7t [place] [address] Care Team Providers Care Third Rail Installer Name Role Phone Sierra Godoy MD Primary Care Provider [phone] Reason for Visit * Reason Comments Med Refill Encounter Details Date Type Department Care Team (Late st Contact Info) Description 07/25/2022 Refill [facility] WALK[facility] [address] [place], [place] [phone] Earnestine Lainez MD [address] [place] [address] Gastroesophageal reflux disease, unspecified whether esophagitis present [...] present documented in this encounter Care Teams Third Rail Installer Relationship Specialty Start Date End Date Sierra Godoy MD [address] [place] [address] PCP - General Family Medicine 01/20/20 documented as of this encounter
--- OUTSIDE RECORDS SUMMARY | 2025-03-28 13:32 | XMS_ITS | Encounter Summary ---
Author Organization [employer] Address [address] [facility] 7t [place] [address] Care Team Providers Care Director Business Management Name Role Phone Sierra Godoy MD Primary Care Provider [phone] Encounter Details Date Type Department Care Team (Latest Contact Info) Description 03/28/2025 Travel Social History Tobacco Use Types Packs/Day Years [...] AM EDT documented as of this encounter Functional Status * Over the [...] Diagnoses Not on filedocumented in this encounter Additional Health Concerns Assessment Noted Time PHQ-9 Depression Total Score: 2 03/28/20 25 11:07 AM EST documented as of this encounter Care Teams Director Business Management Relationship Specialty Start Date End Date Sierra Godoy MD [address] [place] [address] PCP - General Family Medicine 01/20/20 documented as of this encounter
[2025-03-28 14:05] LABS: Alanine Aminotransferase 28 U/L (0-31); Albumin Level 4.7 g/dL (3.5-5.0); Alkaline Phosphatase 117 U/L (39-117); Anion Gap 11 (12-20); Aspartate Amino Transferase 24 U/L (5-31); Blood Urea Nitrogen 15 mg/dL (9-16); Calcium 10.4 mg/dL (8.4-10.2); Carbon Dioxide 33 mmol/L (22-29); Chloride 100 mmol/L (96-108); Cholesterol 150 mg/dL (<200); Estimated Glomerular Filt Rate > 60; HDL Cholesterol 42 mg/dL (>40); Microalbum/Creatinine Ratio Ur 13.7 ug/mg cr (<30); Potassium 4.0 mmol/L (3.3-5.1); Sodium 140 mmol/L (135-145); Total Protein 8.4 g/dL (6.5-8.0); Triglycerides 125 mg/dL (<150)
[2025-03-30 04:29] LABS: ~HepC Num1 0.10 S/CO (0.00-0.79); ~Hepatitis C Antibody Nonreactive (Nonreactive)
== END 2025-03-28 11:13 | disposition home or self-care (01) ==
LOC: HO.HHCL 11:12
PROVIDERS: PCP General Practice; Visit Provider General Practice
DX: Z11.59 Encounter for screening for other viral diseases (principal); K12.1 Other forms of stomatitis; E11.9 Type 2 diabetes mellitus without complications
CPT/HCPCS: 36415; 80053; 80061; 82043; 82570; 86803; 87255